=== PATIENT | male | born 1940 | race Caucasian/White ===

== ENCOUNTER 2020-08-30 14:11 | Outpatient (REF) | payer MEDICARE, SELFPAY ==
[2020-08-30 14:15] LABS: Creatinine Urine 89.86 mg/dL; Microalbum/Creatinine Ratio Ur 12.2 ug/mg cr
== END 2020-08-30 14:12 | disposition home or self-care (01) ==
LOC: HO.LNP 14:11
PROVIDERS: Visit Provider Family Medicine
DX: I10 Essential (primary) hypertension (principal)
CPT/HCPCS: 82043

== ENCOUNTER 2020-11-29 13:38 | Outpatient (REF) | payer MEDICARE, SELFPAY ==
[2020-11-29 14:22] LABS: Microalbum/Creatinine Ratio Ur 11.2 ug/mg cr
== END 2020-11-29 13:39 | disposition home or self-care (01) ==
LOC: HO.LNP 13:38
PROVIDERS: Visit Provider Family Medicine
DX: E11.9 Type 2 diabetes mellitus without complications (principal); I10 Essential (primary) hypertension
CPT/HCPCS: 82043

== ENCOUNTER 2021-05-30 12:41 | Outpatient (REF) | payer MEDICARE, SELFPAY ==
[2021-05-30 14:08] LABS: Glucose Urine UA NEG (NEG); Leukocyte Esterase Urine NEG (NEG); Nitrite Urine NEG (NEG); Urine Blood NEG (NEG); Urine Ketones NEG (NEG); Urine Protein NEG (NEG-TRACE)
[2021-05-30 14:14] LABS: Appearance Urine CLEAR; Color Urine YELLOW
[2021-05-30 14:15] LABS: Alanine Aminotransferase 26 U/L (0-40); Albumin Level 4.4 g/dL (3.5-5.0); Alkaline Phosphatase 81 U/L (39-117); Anion Gap 13 (12-20); Aspartate Amino Transferase 22 U/L (5-37); Bilirubin Total 0.7 mg/dL (0.0-1.0); Blood Urea Nitrogen 26 mg/dL (9-16); Calcium 9.7 mg/dL (8.4-10.2); Carbon Dioxide 25 mmol/L (22-29); Chloride 107 mmol/L (96-108); Cholesterol 127 mg/dL; Estimated Glomerular Filt Rate 46; Glucose Fasting 96 mg/dL (60-99); HDL Cholesterol 41 mg/dL; LDL Cholesterol Calculated 61 mg/dl; Potassium 4.8 mmol/L (3.3-5.1); Sodium 140 mmol/L (135-145); Triglycerides 129 mg/dL
== END 2021-05-30 12:42 | disposition home or self-care (01) ==
LOC: HO.WFDLDS 12:41
PROVIDERS: Visit Provider Family Medicine
DX: Z00.00 Encounter for general adult medical examination without abnormal findings (principal); I10 Essential (primary) hypertension
CPT/HCPCS: 36415; 80048; 80053; 80061; 81003; 84443

== ENCOUNTER 2021-09-04 12:20 | Outpatient (REF) | payer MEDICARE, SELFPAY ==
[2021-09-04 14:17] LABS: Anion Gap 12 (12-20); Blood Urea Nitrogen 25 mg/dL (9-16); Calcium 9.4 mg/dL (8.4-10.2); Carbon Dioxide 25 mmol/L (22-29); Chloride 108 mmol/L (96-108); Estimated Glomerular Filt Rate 51; Glucose Random 109 mg/dL (60-115); Potassium 4.4 mmol/L (3.3-5.1); Sodium 141 mmol/L (135-145)
[2021-09-04 14:29] LABS: Estimated Average Glucose 117 mg/dL; Hemoglobin A1c % 5.7 %
== END 2021-09-04 12:21 | disposition home or self-care (01) ==
LOC: HO.WFDLDS 12:20
PROVIDERS: Visit Provider Family Medicine
DX: Z00.00 Encounter for general adult medical examination without abnormal findings (principal); E11.9 Type 2 diabetes mellitus without complications
CPT/HCPCS: 36415; 80048; 83036

== ENCOUNTER 2021-10-05 13:30 | Outpatient (REF) | payer MEDICARE, SELFPAY ==
--- NOTE | ~2021-10-05 | XR_ITS ---
EXAMINATION: X-RAY LUMBAR SPINE X-RAY LEFT HIP CLINICAL INFORMATION: Pain with radiculopathy. COMPARISON: MRA of the abdomen dated from 10/20/2018. TECHNIQUE: 3 views of the lumbar spine and 2 views of the left hip were obtained. FINDINGS: There are 5 nonrib-bearing lumbar-type vertebral bodies with unchanged grade 1 anterolistheses of L4 on L5 and otherwise preserved anatomic alignment. No evidence of acute compression deformities. There are moderate to severe multilevel degenerative changes with disc space narrowing, osteophytes and bilateral facet arthropathy. The degree of disc space narrowing is more pronounced at L2-L3 and the degree of facet arthropathy is more pronounced from L4 through S1. These changes lead to varying degrees of neural foraminal encroachment and central canal narrowing. Evaluation of the left hip demonstrates no acute fractures or malalignment with moderate degenerative osteoarthritis. Multiple indeterminate surgical clips overlie the soft tissues of the left hip. XR/XR lumbar spine 2-3V IMPRESSION: No acute fractures or malalignment. Moderate to severe multilevel lumbar spondylosis which could be further assessed with an MR of lumbar spine if indicated. Moderate degenerative changes of the left hip.
--- NOTE | ~2021-10-05 | XR_ITS ---
EXAMINATION: X-RAY LUMBAR SPINE X-RAY LEFT HIP CLINICAL INFORMATION: Pain with radiculopathy. COMPARISON: MRA of the abdomen dated from 10/20/2018. TECHNIQUE: 3 views of the lumbar spine and 2 views of the left hip were obtained. FINDINGS: There are 5 nonrib-bearing lumbar-type vertebral bodies with unchanged grade 1 anterolistheses of L4 on L5 and otherwise preserved anatomic alignment. No evidence of acute compression deformities. There are moderate to severe multilevel degenerative changes with disc space narrowing, osteophytes and bilateral facet arthropathy. The degree of disc space narrowing is more pronounced at L2-L3 and the degree of facet arthropathy is more pronounced from L4 through S1. These changes lead to varying degrees of neural foraminal encroachment and central canal narrowing. Evaluation of the left hip demonstrates no acute fractures or malalignment with moderate degenerative osteoarthritis. Multiple indeterminate surgical clips overlie the soft tissues of the left hip. XR/XR hip LT min 2V IMPRESSION: No acute fractures or malalignment. Moderate to severe multilevel lumbar spondylosis which could be further assessed with an MR of lumbar spine if indicated. Moderate degenerative changes of the left hip.
== END 2021-10-05 13:31 | disposition home or self-care (01) ==
LOC: HO.HMGCX 13:30
PROVIDERS: PCP Family Medicine; Visit Provider Family Medicine
DX: M54.16 Radiculopathy, lumbar region (principal); M79.605 Pain in left leg
CPT/HCPCS: 72100; 73502

== ENCOUNTER 2022-02-13 15:00 | Outpatient (RCR) | payer MEDICARE, SELFPAY ==
--- NOTE | 2021-11-08 14:00 | MHC.PT.EP ---
[facility] [place] Office [place] Office [place] Office [address] Benny Wyatt [address] [phone] F: [phone] F: [phone] F: [phone] F: [phone] Physical Therapy Plan of Care Date of Evaluation: Date of Surgery: Diagnosis: This is a 80 yo male presenting to skilled PT with a script for radiculopathy, lumbar region, L leg pain Assessment: This is a 80 yo male presenting to skilled PT with a script for radiculopathy, lumbar region, L leg pain. Patient comes to PT after seeing PCP who trialed muscle relaxants and prednisone, neither of which helped. He is now on gabapentin to trial (helping a little), referred to PT and ortho. Symptoms have ongoing for about 5 weeks. Symptoms are located L side buttock and then radiates down the entire leg (anterior, lateral and posterior). Symptoms are described as numbness and achy (radiates to the ankle but not the foot). He has a hard time describing his symptoms and where they are located. The leg feels like it is going to give out and his balance is off but he has not fallen. Assessment reveals pain that ranges up to a 6/10. He demos shuffling gait pattern with decreased balance and increased knee flexion for stability, decreased lumbar and L hip ROM, decreased B hip strength with associated loss of strength in back and core, impaired joint mobility with decreased mobility throughout spine as well as gross functional decline with walking, sitting and standing as well as LB ADLs. Pain improved with prone lying, CHARAN and standing extensions indicating ? nerve involvement. He is a good candidate for skilled PT 2x/wk for 5wks. Frequency and Duration: The patient will be seen 2x/wk for 5wks Short Term Goals: I in HEP and understanding of progression in 1 week Centralize symptoms for at least 2 weeks Return to normal gait pattern in 2 weeks Senior Care Goals: (in 5 wks) Demos functional ROM and strength Improve oswestry by at least 10 points Improve pain at the worst to no more than 2/10 Demo proper lifting techniques without increase in pain or radiating symptoms Treatment Plan: Modalities to reduce pain, spasms and effusion. Manual therapy to restore motion and function. Therapeutic exercise to improve strength and flexibility. Neuromuscular re-education for posture and balance. Therapeutic activities to return to functional activities of daily living. Electronically signed by: Yaima Ambrosio PT Please sign and return to therapist. Thank you for your referral.
--- NOTE | 2022-02-13 15:46 | MHC.PT.DC ---
[facility] [place] Office [place] Office [place] Office [address] Benny Wyatt [address] [phone] F: [phone] F: [phone] F: [phone] F: [phone] Physical Therapy Discharge Report Diagnosis: This is a 80 yo male presenting to skilled PT with a script for radiculopathy, lumbar region, L leg pain Date of Surgery: Date of Evaluation: 11/08/21 Date of Discharge: Treatments to Date: 22 Cancellations to Date: 0 No Shows to Date: 0 Discharge Status: Discharge Summary: 02/13: Patient has had 22 visits of PT, I feel like he has plateued with his progress. He continues to demo shuffling gait, lateral shift and back pain with leg pain. He has improved some and understands how to manage symptoms with HEP. I am referring him back to ortho at this time for continued pain and lack of any more improvements with PT at this time. DC to HEP at this time. Pt has 1 remaining PT visit before DC. Electronically signed by: Please sign and return to therapist. Thank you for your referral.
--- NOTE | 2022-02-13 15:47 | MHC.PT.DC ---
[facility] [place] Office [place] Office [place] Office [address] Benny Wyatt [address] [phone] F: [phone] F: [phone] F: [phone] F: [phone] Physical Therapy Discharge Report Diagnosis: This is a 80 yo male presenting to skilled PT with a script for radiculopathy, lumbar region, L leg pain Date of Surgery: Date of Evaluation: 11/08/21 Date of Discharge: 02/13/22 Treatments to Date: 22 Cancellations to Date: 0 No Shows to Date: 0 Discharge Status: Improved Function Independent with HEP Visit Non-compliance Discharge Summary: 02/13: Patient has had 22 visits of PT, I feel like he has plateaued with his progress. He continues to demo shuffling gait, lateral shift and back pain with leg pain. He has improved some and understands how to manage symptoms with HEP. I am referring him back to ortho at this time for continued pain and lack of any more improvements with PT at this time. DC to HEP at this time. Electronically signed by: Yaima Ambrosio, PT Please sign and return to therapist. Thank you for your referral.
== END 2022-02-13 15:47 | disposition home or self-care (01) ==
LOC: HO.PTCHIC 15:00
PROVIDERS: PCP Family Medicine; Visit Provider Family Medicine
DX: M54.16 Radiculopathy, lumbar region (principal); M79.605 Pain in left leg
CPT/HCPCS: 97110; 97112; 97116; 97140; 97162

== ENCOUNTER → 2022-11-16 13:18 | Outpatient (REF) | payer MEDICARE, SELFPAY ==
--- NOTE | 2022-11-16 13:21 | HM_ITS ---
Conclusion: 1. Patient was monitored for total period of 2 days 2. Baseline was normal sinus rhythm with average heart rate of 72 beats per minute 3. No significant pauses or bradycardia noted 4. Total of 3233 PACs accounting for 1.7% of total beats account for frequent PACs 5. Patient reported 1 event that correlated with sinus rhythm MTDD
== END ==
LOC: HO.CARD 13:18
PROVIDERS: PCP Family Medicine; Visit Provider Family Medicine
DX: R00.2 Palpitations (principal)
CPT/HCPCS: 93225

== ENCOUNTER 2022-12-11 11:58 | Outpatient (REF) | payer MEDICARE, SELFPAY ==
[2022-12-11 13:51] LABS: MANUAL DIFF FLAG NO
[2022-12-11 13:57] LABS: Basophils Absolute Auto 0.1 X10*3/uL (0.0-0.2); Basophils Percent Auto 0.7 % (0-2); Eosinophils Absolute Auto 0.3 X10*3/uL (0.0-0.4); Eosinophils Percent Auto 4.3 % (0-4); Hematocrit 42.3 % (42.0-52.0); Hemoglobin 13.6 g/dl (14.0-18.0); Imm Gran Abs Auto 0.02 X10*3/uL (0.00-0.03); Imm Gran Pct Auto 0.3 % (0.0-0.4); Lymphocytes Absolute Auto 1.9 X10*3/uL (1.2-4.9); Lymphocytes Percent Auto 24.5 % (20-40); Mean Corpuscular HGB Conc 32.2 g/dl (31.0-36.0); Mean Corpuscular Hemoglobin 30.4 pg (27.0-33.0); Mean Corpuscular Volume 94.4 fL (80.0-98.0); Mean Platelet Volume 11.3 fL (9.4-12.4); Monocytes Absolute Auto 0.8 X10*3/uL (0.1-1.2); Monocytes Percent Auto 9.8 % (2-11); Neutrophils Absolute Auto 4.6 x10*3/uL (2.0-8.3); Neutrophils Percent Auto 60.4 % (45-73); Platelet Count 229 X10*3/uL (160-400); Red Blood Count 4.48 X10*6/uL (4.60-5.80); White Blood Count 7.6 X10*3/uL (4.8-10.8)
[2022-12-11 14:07] LABS: Appearance Urine Clear; Color Urine Yellow; Glucose Urine UA Negative (Negative); Leukocyte Esterase Urine Negative (Negative); Nitrite Urine Negative (Negative); Urine Blood Negative (Negative); Urine Ketones Negative (Negative); Urine Protein Negative (Neg-Trace)
[2022-12-11 15:22] LABS: Creatinine Urine 70.12 mg/dL; Microalbum/Creatinine Ratio Ur 17.1 ug/mg cr
[2022-12-11 15:52] LABS: Alanine Aminotransferase 18 U/L (0-40); Albumin Level 4.3 g/dL (3.5-5.0); Alkaline Phosphatase 99 U/L (39-117); Anion Gap 14 (12-20); Aspartate Amino Transferase 18 U/L (5-37); Bilirubin Total 0.8 mg/dL (0.0-1.0); Blood Urea Nitrogen 32 mg/dL (9-16); Calcium 9.2 mg/dL (8.4-10.2); Carbon Dioxide 26 mmol/L (22-29); Chloride 105 mmol/L (96-108); Estimated Glomerular Filt Rate 38; Glucose Fasting 100 mg/dL (60-99); Potassium 4.6 mmol/L (3.3-5.1); Sodium 140 mmol/L (135-145); Total Protein 6.6 g/dL (6.5-8.0)
[2022-12-11 15:57] LABS: TSH reflex Free T4 0.98 uIU/mL (0.32-4.0)
== END 2022-12-11 11:59 | disposition home or self-care (01) ==
LOC: HO.WFDLDS 11:58
PROVIDERS: Visit Provider Family Medicine
DX: Z00.00 Encounter for general adult medical examination without abnormal findings (principal); I10 Essential (primary) hypertension
CPT/HCPCS: 36415; 80053; 81003; 82043; 84443; 85025

== ENCOUNTER → 2023-01-30 12:45 | Outpatient (BNVA) | payer MEDICARE, SELFPAY | PROVIDERS: PCP Family Medicine; Referring Provider Family Medicine; Visit Provider Internal Medicine | DX: I49.8 Other specified cardiac arrhythmias (principal); I73.9 Peripheral vascular disease, unspecified | CPT/HCPCS: 99202 ==

== ENCOUNTER 2023-02-04 13:05 | Outpatient (REF) | payer MEDICARE, SELFPAY ==
--- NOTE | ~2023-02-04 | XR_ITS ---
EXAMINATION: XR CHEST CLINICAL INFORMATION: Cough. COMPARISON: 06/15/2018 chest radiograph. TECHNIQUE: 2 views of the chest were obtained. FINDINGS: No significant abnormality is noted involving the heart, lungs, mediastinum, bony thorax or soft tissues. XR/XR chest 2V IMPRESSION: No acute cardiopulmonary process.
== END 2023-02-04 13:06 | disposition home or self-care (01) ==
LOC: HO.XRAY 13:05
PROVIDERS: PCP Family Medicine; Visit Provider Family Medicine
DX: R05.9 Cough, unspecified (principal)
CPT/HCPCS: 71046

== ENCOUNTER → 2023-02-18 08:38 | Outpatient (REF) | payer MEDICARE, SELFPAY ==
--- NOTE | ~2023-02-18 | NM_ITS ---
Lexiscan Myocardial perfusion study Indication: Vascular disease, assess for ischemia Technique: The patient was brought in for a Lexiscan perfusion study on 02/18/2023 and was injected 0.4 mg of Lexiscan intravenously. Within a minute of this injection 25 mCi of sestamibi was given intravenously. Images were obtained using the SPECT gamma camera interlaced with the gating device. Images were obtained in supine position. Resting perfusion study was performed on 02/19/2023. Patient was administered 25 mCi of sestamibi intravenously at rest. Images were then obtained in supine position. Images were processed with the software and compared side to side in short axis, horizontal long axis and vertical long axis views. Total DLP 120mGy-cm. Findings: Raw acquisition reviewed. Arms by the patient's side. The stress perfusion study showed diminished tracer uptake along the inferior wall from basal to mid portions. There is improvement with CT attenuation correction suggestive of diaphragmatic attenuation artifact. The gated study shows normal LV systolic function with calculated LVEF of 68%. LV cavity is normal in size. The gated study shows normal wall thickening and contraction of segments. Resting study shows no significant perfusion abnormality. Gating at rest reveals normal wall motion with ejection fraction at 74%. The findings are consistent with no clear reversible or fixed perfusion abnormality. NC/NC cardiolite stress test Impression: 1. Myocardial perfusion imaging study shows normal myocardial perfusion. 2. Gated LVEF is 69% during stress and 74% during rest. 3. Transient ischemic dilatation not present. EKG component of the test reported separately.
--- NOTE | 2023-02-18 08:41 | CA_ITS ---
Transthoracic Echocardiogram Patient (Last, First, Middle): Alexi Oconnell P Gender: Male Date of : 1940 Age: 82 Procedure Date: 02/18/2023 Procedure Type: Transthoracic Echocardiogram Location: OP Height: 180.34 cm Weight: 79.38 kg BSA: 1.99 m2 Heart Rate: 68 bpm BP: 120 / 60 mmHg Glove Wrapper: KISHAN Referring MD: Anderson Bhandari MD Symptoms: I25.10 - Atherosclerotic heart disease of [place] coronary artery without... Study Quality: Adequate ECG Rhythm: Atrial Fibrillation Conclusions: - The left ventricular systolic function is normal. The calculated ejection fraction is 68% by biplane method. - No obvious valvular pathology seen on this study. Findings Left Ventricle Normal left ventricular cavity size. The left ventricular systolic function is normal. The calculated ejection fraction is 68% by biplane method. There is no evidence of regional wall motion abnormalities. Diastolic function is indeterminate on the basis of available data. There is mild septal and mild basal asymmetric hypertrophy. LV peak GLS -17.7%. Right Ventricle Normal right ventricular cavity size and systolic function. Atria Both atria are normal in size. Aortic Valve There is a normal trileaflet aortic valve. There is no aortic valve stenosis. There is trace (trivial) aortic valve regurgitation. Mitral Valve There is mild mitral annular calcification. There is no mitral valve regurgitation. There is no mitral valve stenosis. Pulmonic Valve The pulmonic valve is likely normal. There is trace pulmonic valve regurgitation. Tricuspid Valve Normal tricuspid valve structure. There is mild tricuspid valve regurgitation. There is no evidence of pulmonary hypertension. Great Vessels The asc aorta is normal in size. Venous The inferior vena cava is normal in size and collapses greater than 50% with inspiration. Pericardium/Pleural There is no evidence of pericardial effusion. Prior Study Comparison No prior study available for comparison. Recommendations, Care & Conclusions No obvious valvular pathology seen on this study. Measurements 2D Linear Measurements IVSd: 0.92 0.6-0.9/0.6-1.0 cm LVIDd: 4.31 3.9-5.3/4.2-5.9 cm LVIDd Index: 2.17 2.4-3.2/2.2-3.1 cm/m2 LVIDs: 2.20 2.0-3.6 cm LVPWd: 0.81 0.7-1.1 cm LA Diam: 3.30 2.7-3.8/3.0-4.0 cm LAIDs Index: 1.66 1.5-2.3 cm/m2 LV Mass: 146.24 67-162/88-224 g LV Mass Index: 73.49 43-95/49-115 g/m2 LVOT Diam: 2.10 3.0+(-)1.3 cm 2D Systolic Function EF 4C: 68.30 >55% EF 2C: 65.70 >55% EF BiP: 68.00 >55% Mitral Valve MV Pk E: 0.79 MV PK A: 1.11 MV Decel Time: 327.00 E/A: 0.70 E'Lateral: 7.83 E'Medial: 6.42 E/E' Med: 12.40 E/E' Lat: 10.10 PHT: 96.00 MVA PHT: 2.29 Decel Fountain: 2.43 Aortic Valve AoV Pk Amador: 1.19 AoV Pk Grad: 6.00 LVOT LVOT Pk Amador: 1.00 LVOT Mn Amador: 0.68 LVOT VTI: 0.22 LVOT Pk Grad: 4.00 LVOT Mn Grad: 2.00 LVOT Diam: 2.10 LVOT Area: 3.46 Diastolic Function MV Pk E: 0.79 MV Pk A: 1.11 E/A: 0.70 E'Medial: 6.42 E/E' Med: 12.40 E' Laterial: 7.83 E/E' Lat: 10.10 Right Ventricle TAPSE (mm): 19.90 TVS' Amador: 13.40 Tricuspid Valve TR Pk Amador: 2.03 TR Pk Grad: 16.00 RA Press: 3.00 RVSP: 19.00 Great Vessels Aorta Sinus of Valsalva: 3.60 2.0-3.5 cm Ao Asc: 3.80 2.1-3.4 cm Pulmonary Valve PV Pk Amador: 1.07 Peak PV Grad: 5.00 Updated in Other Vendor System with Status of Final Anderson Bhandari MD electronically signed on 02/18/2023 12:04:59 PM with status of Final
--- NOTE | 2023-02-18 08:41 | CA_ITS ---
Acquisition Time: 2023-02-18 10:10:57 Total Exercise Time: 00:00:54 Test Indications: I73.9 - Peripheral vascular dis Medications: Protocol: MARRY Max HR: 115 BPM 83% of Pred: 137 BPM Max BP: 130/064 mmHG Max Work Load: 2.5 METS Exercise stress test with exercise 54 sec of Marry protocol and unable to walk safely on treadmill. Treadmill stopped and pt assisted to sitting position. Testing changed to a pharmacological stress test with Lexiscan injection, while sitting and kicking his legs, with mild sob, no chest discomfort, with frequent isolated PACs, with normotensive response to injection, with nondiagnostic EKG for ischemia. In recovery he reported some lightheadedness that was treated with Aminophylline 75mg IVP to reverse Lexiscan. Nuclear images pending. Test reviewed with Dr Escobar. Referred By: Anderson Bhandari Overread By: RIVAS WOOD
== END ==
LOC: HO.CARD 08:38
PROVIDERS: PCP Family Medicine; Visit Provider Internal Medicine
DX: I25.10 Atherosclerotic heart disease of native coronary artery without angina pectoris (principal); I49.8 Other specified cardiac arrhythmias; I73.9 Peripheral vascular disease, unspecified
CPT/HCPCS: 78452; 93017; 93306; 93356; A9500; J0280; J2785

== ENCOUNTER 2023-06-12 11:18 | Outpatient (AMB) | payer MEDICARE, SELFPAY ==
[2023-06-12 11:24] VITALS: BP 110/58; PULSE 62; O2SAT 96
--- NOTE | 2023-06-12 11:24 | A.OFFPC_ITS ---
Vital Signs 06/12/23 11:24 Height 5 ft 10.5 in BP 110/58 L Blood Pressure Location Rt brachial Position Sitting Pulse 62 Pulse Source Pulse Oximeter Pulse Oximetry (%) 96 Oxygen Delivery Method Room Air Intake Visit Reasons: Follow-up hypertension and renal failure Intake Note: Patient is here to follow up on hypertension and renal failure. Allergies lisinopril [LISINOPRIL] Allergy (Intermediate, Verified 06/12/23 11:34) ANGIOEDEMA Iodinated Contrast Media [IV CONTRAST] Allergy (Unknown, Verified 06/12/23 11:34) SWELLING orange juice [ORANGE JUICE] Allergy (Unknown, Verified 06/12/23 11:34) BPH/KIDNEY PROBLEM IVP Dye Allergy (Unknown, Uncoded 06/12/23 11:34) Rash Hives Tobacco use date assessed: 06/12/23 Fall risk assessment: No Falls in past year Last assessed Fall Risk: 06/12/23 Dental Screening Dental Screen Date: 06/12/23 Did you have a dental visit in the last 12 months?: No Did you have a dental problem in the last 6 months where you did not have access to dental care?: No Was dental information given to patient?: Patient has dentist HPI Follow-up hypertension and renal failure HPI Details 82 y/o male presents to f/u hypertension and renal failure. Blood pressure today 110/58. He is on metoprolol 150mg and amlodipine 10mg daily. Also on losartan 100mg daily. No recent labs to review for his CRF. Had seen Nephrology 06/03/23. HPI Comments History of Present Illness Details Documentation assistance for Hernando Mosqueda MD, was provided by Amilcar Yan, Speech Coach on 06/12/2023 12:17 PM ANNIE. I, Dr. Mosqueda, have read, observed, and verified documentation. [facility] Medical History Diet-controlled diabetes mellitus Essential hypertension HTN (hypertension) Peripheral vascular disease Surgical History History of bladder surgery History of surgery History of tonsillectomy Family History Father HTN (hypertension) Lung cancer Mother HTN (hypertension) Sister Mental health disorder Sister Anxiety Son No problems noted. Son No problems noted. Daughter No problems noted. Daughter No problems noted. Social History Housing: Condominium Patient Tobacco Use Status: Former Tobacco user Years Smoked: 25 years e-Cigarette/Vaping Use: Never Used Second Hand Smoke Exposure: No service: Yes Current occupational status: retired Current occupational exposures/hazards: No Hearing needs: Yes Questionnaire Thrive Questionnaire Date Thrive assessed: 09/04/21 MAGNUS-7 AMB Questionnaire MAGNUS-7 Date MAGNUS - 7 assessed: 10/16/21 Source: Developed by Drs. Cameron Pimentel, Giovana Hendrix, Tim Wong and colleagues, with an educational monika from [employer]. Review of Systems Const Denies chills, Denies fatigue, Denies fever(s), Denies headache(s) and Denies weakness ENT Denies dizziness and Denies headache(s) Card Denies chest pain, Denies lightheadedness, Denies dyspnea and Denies other (Palpitations) Resp Denies cough, Denies dyspnea, Denies wheezing and Denies other ( shortness of breath) Musc Denies numbness and Denies tingling Neuro Denies dizziness, Denies headache(s), Denies numbness, Denies tingling, Denies paresthesias and Denies weakness Psych Denies anxiety and Denies depression Endo Denies fatigue Aller/Immun Denies wheezing Physical exam (Primary Care) Vital Signs: Last Vital Signs Pulse 62 06/12/23 11:24 BP 110/58 L 06/12/23 11:24 Pulse Ox 96 06/12/23 11:24 Oxygen Delivery Method Room Air 06/12/23 11:24 Tobacco/Smoking Status: Tobacco use Status Tobacco use date assessed 06/12/23 06/12/23 11:35 Patient Tobacco Use Status Former Tobacco user 06/12/23 11:28 e-Cigarette/Vaping Use Never Used 06/12/23 11:28 Thrive Assessment: Date of Thrive Assessment Date Thrive assessed 09/04/21 06/12/23 11:28 Const General: no acute distress and well developed Nutritional Appearance: well nourished Orientation/consciousness: patient oriented x3 HENMT Head: Yes normocephalic and Yes atraumatic Eyes General: appearance normal, both eyes and all related structures Pupils: Equal, round and reactive pupils present EOM: EOMs intact bilaterally Resp Effort & Inspection: normal respiratory effort Auscultation: clear to auscultation bilaterally Cardio Rate: regular rate Rhythm: regular rhythm Heart sounds: S1 normal heart sound present, S2 normal heart sound present, no gallops, no murmurs and no rubs Bruits: carotid bruit Neuro General: patient oriented x3 and gait normal Cranial nerves: Yes Equal, round and reactive pupils present Psych Affect: normal affect Assessment and Plan Assessment & Plan (1) Essential hypertension: Code(s): I10 - Essential (primary) hypertension Plan: Blood pressure very well controlled. Creatinine level has risen further however Will try lowering his losartan to 50 mg daily (2) CRF (chronic renal failure): Code(s): N18.9 - Chronic kidney disease, unspecified Plan: As above, will decrease losartan He will watch his blood pressures and we can follow-up on renal function at his next visit (3) Carotid bruit: Code(s): R09.89 - Other specified symptoms and signs involving the circulatory and respiratory systems Plan: Followed by [facility] vascular for carotid artery stenosis Stable today Coding Level of Care Code Est Pt Level 4 (41758) Diagnoses Essential hypertension I10 CRF (chronic renal failure) N18.9 Carotid bruit R09.89
== END 2023-06-12 12:50 | disposition home or self-care (01) ==
PROVIDERS: PCP Family Medicine; Visit Provider Family Medicine
DX: I12.9 Hypertensive chronic kidney disease with stage 1 through stage 4 chronic kidney disease, or unspecified chronic kidney disease (principal); N18.9 Chronic kidney disease, unspecified; R09.89 Other specified symptoms and signs involving the circulatory and respiratory systems
CPT/HCPCS: 99214

== ENCOUNTER 2023-06-12 11:18 | Outpatient (REF) | payer MEDICARE, SELFPAY ==
[2023-06-12 14:15] LABS: MANUAL DIFF FLAG NO
[2023-06-12 14:21] LABS: Basophils Percent Auto 0.4 % (0-2); Eosinophils Absolute Auto 0.2 X10*3/uL (0.0-0.4); Eosinophils Percent Auto 2.5 % (0-4); Hematocrit 40.4 % (42.0-52.0); Imm Gran Abs Auto 0.01 X10*3/uL (0.00-0.03); Imm Gran Pct Auto 0.1 % (0.0-0.4); Lymphocytes Absolute Auto 1.7 X10*3/uL (1.2-4.9); Mean Corpuscular HGB Conc 32.2 g/dl (31.0-36.0); Mean Corpuscular Hemoglobin 30.4 pg (27.0-33.0); Mean Corpuscular Volume 94.4 fL (80.0-98.0); Mean Platelet Volume 11.8 fL (9.4-12.4); Monocytes Absolute Auto 0.7 X10*3/uL (0.1-1.2); Neutrophils Absolute Auto 5.3 x10*3/uL (2.0-8.3); Platelet Count 211 X10*3/uL (160-400); Red Blood Count 4.28 X10*6/uL (4.60-5.80); Red Cell Distribution Width 13.5 % (11.0-16.0); White Blood Count 7.9 X10*3/uL (4.8-10.8)
[2023-06-12 14:34] LABS: Albumin Level 4.1 g/dL (3.5-5.0); Anion Gap 14 (12-20); Blood Urea Nitrogen 27 mg/dL (9-16); Calcium 9.3 mg/dL (8.4-10.2); Carbon Dioxide 24 mmol/L (22-29); Chloride 107 mmol/L (96-108); Estimated Glomerular Filt Rate 38; Magnesium 1.8 mg/dL (1.6-2.6); Phosphorus 3.3 mg/dL (2.7-4.5); Potassium 4.4 mmol/L (3.3-5.1); Sodium 141 mmol/L (135-145)
[2023-06-14 15:54] LABS: Calcium (PTHI) 8.9 mg/dL (8.6-10.3); PTHI 129 pg/mL (16-77)
[2023-06-17 00:54] LABS: VITAMIN D (1,25 OH) D3 34 pg/mL; Vit D (1,25-Dihydroxy) Total 34 pg/mL (18-72); Vitamin D (1,25 OH) D2 <8 pg/mL
== END 2023-06-12 11:19 | disposition home or self-care (01) ==
LOC: HO.WFDLDS 11:18
PROVIDERS: Visit Provider Internal Medicine Nephrology
DX: I12.9 Hypertensive chronic kidney disease with stage 1 through stage 4 chronic kidney disease, or unspecified chronic kidney disease (principal); E11.22 Type 2 diabetes mellitus with diabetic chronic kidney disease; N18.32 Chronic kidney disease, stage 3b
CPT/HCPCS: 36415; 80051; 82040; 82310; 82565; 82652; 83735; 83970; 84100; 84520; 85025

== ENCOUNTER 2023-08-22 11:10 | Outpatient (AMB) | payer MEDICARE, SELFPAY ==
[2023-08-22 11:15] VITALS: BP 118/62; PULSE 64; O2SAT 96; BMI 25.0
--- NOTE | 2023-08-22 11:15 | MHC.PC.OV ---
Vital Signs 08/22/23 11:15 Height 5 ft 10.5 in Weight 177 lb BMI 25.0 BP 118/62 Blood Pressure Location Rt brachial Position Sitting Pulse 64 Pulse Source Pulse Oximeter Pulse Oximetry (%) 96 Oxygen Delivery Method Room Air Intake Visit Reasons: f/u hypertension and CRF Intake Note: Patient is here to follow up on hypertension and CRF. Allergies lisinopril [LISINOPRIL] Allergy (Intermediate, Verified 08/22/23 11:24) ANGIOEDEMA Iodinated Contrast Media [IV CONTRAST] Allergy (Unknown, Verified 08/22/23 11:24) SWELLING orange juice [ORANGE JUICE] Allergy (Unknown, Verified 08/22/23 11:24) BPH/KIDNEY PROBLEM IVP Dye Allergy (Unknown, Uncoded 08/22/23 11:24) Rash Hives Tobacco use date assessed: 08/22/23 Fall risk assessment: 1 Fall in past year Last assessed Fall Risk: 08/22/23 Dental Screening Dental Screen Date: 08/22/23 Did you have a dental visit in the last 12 months?: No Did you have a dental problem in the last 6 months where you did not have access to dental care?: No Was dental information given to patient?: Patient declined HPI f/u hypertension and CRF HPI Details 82 y/o male presents to f/u hypertension and CRF. Had decreased losartan due to rising creatinine levels. Blood pressure today 118/62. He is on losartan 100mg and metoprolol 150mg daily. Also on amlodipine Labs were drawn 06/12/23. Reviewed labs with pt. Creatinine level 1.71 and had barely changed from prior. [facility] Medical History Peripheral vascular disease Diet-controlled diabetes mellitus Essential hypertension HTN (hypertension) Surgical History History of surgery History of tonsillectomy History of bladder surgery Family History Father HTN (hypertension) Lung cancer Mother HTN (hypertension) Sister Mental health disorder Sister Anxiety Son No problems noted. Son No problems noted. Daughter No problems noted. Daughter No problems noted. Social History Housing: Condominium Patient Tobacco Use Status: Former Tobacco user Years Smoked: 25 years e-Cigarette/Vaping Use: Never Used Second Hand Smoke Exposure: No service: Yes Current occupational status: retired Current occupational exposures/hazards: No Hearing needs: Yes Questionnaire Thrive Questionnaire Date Thrive assessed: 09/04/21 MAGNUS-7 AMB Questionnaire MAGNUS-7 Date MAGNUS - 7 assessed: 10/16/21 Source: Developed by Drs. Cameron Pimentel, Giovana Hendrix, Tim Wong and colleagues, with an educational monika from [employer]. Review of Systems Const Denies chills, Denies fatigue, Denies fever(s), Denies headache(s) and Denies weakness ENT Denies dizziness and Denies headache(s) Card Denies chest pain, Denies lightheadedness, Denies dyspnea and Denies other (Palpitations) Resp Denies cough, Denies dyspnea, Denies wheezing and Denies other ( shortness of breath) Musc Denies numbness and Denies tingling Neuro Denies dizziness, Denies headache(s), Denies numbness, Denies tingling, Denies paresthesias and Denies weakness Psych Denies anxiety and Denies depression Endo Denies fatigue Aller/Immun Denies wheezing Physical exam (Primary Care) Vital Signs: Last Vital Signs Pulse 64 08/22/23 11:15 BP 118/62 08/22/23 11:15 Pulse Ox 96 08/22/23 11:15 Oxygen Delivery Method Room Air 08/22/23 11:15 BMI result Body Mass Index 25.0 Tobacco/Smoking Status: Tobacco use Status Tobacco use date assessed 08/22/23 08/22/23 11:27 Patient Tobacco Use Status Former Tobacco user 08/22/23 11:16 e-Cigarette/Vaping Use Never Used 08/22/23 11:16 Thrive Assessment: Date of Thrive Assessment Date Thrive assessed 09/04/21 08/22/23 11:16 Const General: no acute distress and well developed Nutritional Appearance: well nourished Orientation/consciousness: patient oriented x3 HENMT Head: Yes normocephalic and Yes atraumatic Eyes General: appearance normal, both eyes and all related structures Pupils: Equal, round and reactive pupils present EOM: EOMs intact bilaterally Resp Effort & Inspection: normal respiratory effort Auscultation: clear to auscultation bilaterally Cardio Rate: regular rate Rhythm: regular rhythm Heart sounds: S1 normal heart sound present, S2 normal heart sound present, no gallops, no murmurs and no rubs Neuro General: patient oriented x3 and gait normal Cranial nerves: Yes Equal, round and reactive pupils present Psych Affect: normal affect Assessment and Plan Assessment & Plan (1) Essential hypertension: Code(s): I10 - Essential (primary) hypertension Plan: Blood?pressure?shows?good?control.??Goal?is?less?than?140/90 Continue?current?medication?regimen (2) CRF (chronic renal failure): Code(s): N18.9 - Chronic kidney disease, unspecified Plan: Creatinine?level?had?been?rising?and?I?decreased?his?losartan He?will?repeat?his?labs?today Follow-up?with??Peterson?as?recommended Orders: Orders Basic Metabolic Panel Today N18.9 - Chronic kidney disease, unspecified, Z00.00 - Encounter for general adult medical examination without abnormal findings Coding Level of Care Code Est Pt Level 3 (55879) Diagnoses Essential hypertension I10 CRF (chronic renal failure) N18.9
== END 2023-08-22 13:06 | disposition home or self-care (01) ==
PROVIDERS: PCP Family Medicine; Visit Provider Family Medicine
DX: I12.9 Hypertensive chronic kidney disease with stage 1 through stage 4 chronic kidney disease, or unspecified chronic kidney disease (principal); N18.9 Chronic kidney disease, unspecified
CPT/HCPCS: 99213

== ENCOUNTER 2023-08-22 12:12 | Outpatient (REF) | payer MEDICARE, SELFPAY ==
[2023-08-22 14:41] LABS: Anion Gap 12 (12-20); Blood Urea Nitrogen 23 mg/dL (9-16); Calcium 9.2 mg/dL (8.4-10.2); Carbon Dioxide 24 mmol/L (22-29); Chloride 108 mmol/L (96-108); Estimated Glomerular Filt Rate 41; Glucose Random 115 mg/dL (60-115); Potassium 4.5 mmol/L (3.3-5.1); Sodium 139 mmol/L (135-145)
== END 2023-08-22 12:13 | disposition home or self-care (01) ==
LOC: HO.WFDLDS 12:12
PROVIDERS: Visit Provider Family Medicine
DX: Z00.00 Encounter for general adult medical examination without abnormal findings (principal); N18.9 Chronic kidney disease, unspecified
CPT/HCPCS: 36415; 80048

== ENCOUNTER 2023-12-12 11:09 | Outpatient (AMB) | payer MEDICARE, SELFPAY ==
[2023-12-12 11:34] VITALS: BP 100/58; PULSE 65; O2SAT 95; BMI 25.5
--- NOTE | 2023-12-12 11:34 | A.OFFPC_ITS ---
Vital Signs 03 11:34 Height 5 ft 10.5 in Weight 180 lb BMI 25.5 BP 100/58 L Blood Pressure Location Lt brachial Pulse 65 Pulse Source Pulse Oximeter Pulse Oximetry (%) 95 Oxygen Delivery Method Room Air Intake Visit Reasons: Extended exam with f/u labs and health maintenance Allergies lisinopril [LISINOPRIL] Allergy (Intermediate, Verified 08/22/23 11:24) ANGIOEDEMA Iodinated Contrast Media [IV CONTRAST] Allergy (Unknown, Verified 08/22/23 11:24) SWELLING orange juice [ORANGE JUICE] Allergy (Unknown, Verified 08/22/23 11:24) BPH/KIDNEY PROBLEM IVP Dye Allergy (Unknown, Uncoded 08/22/23 11:24) Rash Hives Tobacco use date assessed: 08/22/23 HPI Extended exam with f/u labs and health maintenance HPI Details 82 y/o male presents for an extended exa m with f/u labs and health maintenance. Labs were drawn 08/22/23. Reviewed labs with pt. CRF - creatinine level improved from 1.71 to 1.63 mg/dL. No recent lipid panel. Blood pressure today 100/58. He is on amlodipine 10mg, losartan 100mg, metoprollol 150mg daily. [facility] Medical History Peripheral vascular disease Diet-controlled diabetes mellitus Essential hypertension HTN (hypertension) Surgical History History of surgery History of tonsillectomy History of bladder surgery Family History Father HTN (hypertension) Lung cancer Mother HTN (hypertension) Sister Mental health disorder Sister Anxiety Son No problems noted. Son No problems noted. Daughter No problems noted. Daughter No problems noted. Social History Housing: Condominium Patient Tobacco Use Status: Former Tobacco user Years Smoked: 25 years e-Cigarette/Vaping Use: Never Used Second Hand Smoke Exposure: No service: Yes Current occupational status: retired Current occupational exposures/hazards: No Hearing needs: Yes Questionnaire Thrive Questionnaire Date Thrive assessed: 09/04/21 MAGNUS-7 AMB Questionnaire MAGNUS-7 Date MAGNUS - 7 assessed: 10/16/21 Source: Developed by Drs. Cameron Pimentel, Giovana Hendrix, Tim Wong and colleagues, with an educational monika from [employer] Review of Systems Const Denies chills, Denies fatigue, Denies fever(s), Denies headache(s) and Denies weakness Eyes Denies change in vision ENT Denies dizziness, Denies headache(s), Denies hearing loss, Denies nasal congestion, Denies sinus pain, Denies sinus pressure and Denies sore throat Card Denies chest pain, Denies lightheadedness, Denies dyspnea and Denies other (palpitations) Resp Denies cough, Denies dyspnea and Denies wheezing GI Denies abdominal pain, Denies melena, Denies hematochezia, Denies change in bowel habits, Denies dyspepsia and Denies nausea Denies hematuria and Denies dysuria Musc Denies abnormal gait, Denies myalgias, Denies arthralgias, Denies numbness and Denies tingling Skin/Breast Denies rash, Denies unusual bruising and Denies wounds Neuro Denies abnormal gait, Denies dizziness, Denies headache(s), Denies memory loss, Denies numbness, Denies Sensory deficit (Neuro), Denies tingling and Denies weakness Psych Denies anxiety, Denies depression and Denies memory loss Endo Denies cold intolerance, Denies fatigue, Denies heat intolerance, Denies polydipsia and Denies polyuria Valdemar/Lymph Denies easy bleeding and Denies easy bruising Aller/Immun Denies wheezing Physical exam (Primary Care) Vital Signs: Last Vital Signs Pulse 65 12/12/23 11:34 BP 100/58 L 12/12/23 11:34 Pulse Ox 95 12/12/23 11:34 Oxygen Delivery Method Room Air 12/12/23 11:34 BMI result Body Mass Index 25.5 Tobacco/Smoking Status: Tobacco use Status Tobacco use date assessed 08/22/23 12/12/23 11:38 Patient Tobacco Use Status Former Tobacco user 12/12/23 11:38 e-Cigarette/Vaping Use Never Used 12/12/23 11:38 Thrive Assessment: Date of Thrive Assessment Date Thrive assessed 09/04/21 12/12/23 11:38 Const General: no acute distress, well developed, alert and awake Nutritional Appearance: well nourished Orientation/consciousness: patient oriented x3 [facility] Head: Yes normocephalic and Yes atraumatic Ears: hearing grossly normal bilaterally and TM's normal bilaterally General nose exam: Normal external nose present and Normal nares present Mouth: Normal oral and palatal mucosa present and moist mucous membranes Teeth and gingiva: dentition normal Throat: Yes posterior oropharynx normal Eyes General: appearance normal, both eyes and all related structures Pupils: Equal, round and reactive pupils present and Pupil accommodation reflex normal EOM: EOMs intact bilaterally Neck Neck: Yes normal visual inspection, Yes no lymphadenopathy and Yes trachea midline Thyroid: Thyroid normal Carotids: no bruits Lymphatic: no lymphadenopathy noted Chest Chest palpation & inspection: normal inspection of the chest Resp Effort & Inspection: normal respiratory effort Auscultation: clear to auscultation bilaterally Cardio Rate: regular rate Rhythm: regular rhythm Heart sounds: S1 normal heart sound present, S2 normal heart sound present, no gallops, no murmurs and no rubs Bruits: no abdominal aortic bruits and carotid bruit on the left GI Palpation (GI): No Abdominal aortic bruit present, Soft to palpation, nontender, No hepatosplenomegaly present and No Rebound tenderness present Auscultation: normal bowel sounds General: Yes no CVA tenderness Back/Spine/Pelvis Back: no CVA tenderness Cervical Spine: cervical ROM normal and No Cervical spine tenderness Thoracic/Lumbar Spine: thoraco-lumbar ROM normal, No pain with thoraco-lumbar ROM, No thoracic spinal tenderness and No lumbar spinal tenderness Skin Lesions: no lesions Rashes: no rashes Trauma: no lacerations or abrasions Wounds: no wounds Nails: normal Neuro General: patient oriented x3 Cranial nerves: Yes Equal, round and reactive pupils present Cognition (Neuro): normal cognition Gait exam (Neuro): Normal gait present Motor exam (neuro): 5/5 motor strength present throughout Sensory Exam: No Sensory deficit (Neuro) Deep tendon reflexes (DTR's): Right patellar reflex intensity grade: 2+ and Left patellar reflex intensity grade: 2+ Extrem General: Yes normal to inspection and No edema Psych Appearance: grossly normal Affect: normal affect Attitude: cooperative Thought process: Normal thought process present Assessment and Plan Assessment & Plan (1) CRF (chronic renal failure): Code(s): N18.9 - Chronic kidney disease, unspecified Plan: Renal?function?has?improved?with?discontinuation?of?hydrochlorothiazide Will?also?decrease?his?losartan?at?this?visit (2) Essential hypertension: Code(s): I10 - Essential (primary) hypertension Plan: Blood?pressure?is?a?little?low Will?decrease?losartan (3) Diet-controlled diabetes mellitus: Code(s): E11.9 - Type 2 diabetes mellitus without complications Plan: Blood?sugars?have?been?fairly?well?controlled. Continue?diet?control Will?check?A1c?with?next?lab?draw (4) Cognitive decline: Code(s): R41.89 - Other symptoms and signs involving cognitive functions and awareness Plan: Mild?cognitive?decline?but?patient?also?notices?some?unsteadiness?of?gait Unclear?if?these?are?related Also,?patient?has?left?carotid?bruit?and?vascular?note?mentions?he?is?due?for?re peat?carotid?duplex - referred?back?to?vascular Unclear?if?he?may?have?some?cerebral?microvascular disease Will?continue?to?follow May?need?referral?to?neurology (5) Lower extremity weakness: Code(s): R29.898 - Other symptoms and signs involving the musculoskeletal system Plan: Lower?extremity?weakness?and?mildly?unsteady?gait Will?refer?to?physical?therapy If?not?improving,?will?consider?referral?to?neurology. (6) Unsteady gait: Code(s): R26.81 - Unsteadiness on feet Plan: As?above (7) Carotid bruit: Code(s): R09.89 - Other specified symptoms and signs involving the circulatory and respiratory systems Plan: Left?carotid?bruit. ?As?above,?referred?back?to?his?vascular?surgeon (8) Peripheral vascular disease: Code(s): I73.9 - Peripheral vascular disease, unspecified Plan: As?above (9) Adult general medical exam: Code(s): Z00.00 - Encounter for general adult medical examination without abnormal findings Plan: 82-year-old?male?presents?for?an?extended?exam Stable Orders: Referrals Cologuard Test Z12.11 - Encounter for screening for malignant neoplasm of colon, Z12.12 - Encounter for screening for malignant neoplasm of rectum Vascular Surgery Referral I73.9 - Peripheral vascular disease, unspecified, R09.89 - Other specified symptoms and signs involving the circulatory and respiratory systems Medications: New losartan 25 mg PO DAILY 90 days 90 tabs 2RF Coding Level of Care Code Est Pt Level 4 (81107) Diagnoses CRF (chronic renal failure) N18.9 Essential hypertension I10 Diet-controlled diabetes mellitus E11.9 Cognitive decline R41.89 Lower extremity weakness R29.898 Unsteady gait R26.81 Carotid bruit R09.89 Peripheral vascular disease I73.9 Adult general medical exam Z00.00
== END 2023-12-12 13:04 | disposition home or self-care (01) ==
PROVIDERS: PCP Family Medicine; Visit Provider Family Medicine
DX: I12.9 Hypertensive chronic kidney disease with stage 1 through stage 4 chronic kidney disease, or unspecified chronic kidney disease (principal); E11.22 Type 2 diabetes mellitus with diabetic chronic kidney disease; I73.9 Peripheral vascular disease, unspecified; N18.9 Chronic kidney disease, unspecified; R41.89 Other symptoms and signs involving cognitive functions and awareness; R29.898 Other symptoms and signs involving the musculoskeletal system; R26.81 Unsteadiness on feet; R09.89 Other specified symptoms and signs involving the circulatory and respiratory systems
CPT/HCPCS: 99214

== ENCOUNTER 2023-12-23 10:37 | Outpatient (REF) | payer MEDICARE, SELFPAY ==
[2023-12-23 14:09] LABS: MANUAL DIFF FLAG NO
[2023-12-23 14:18] LABS: Basophils Absolute Auto 0.1 X10*3/uL (0.0-0.2); Basophils Percent Auto 0.9 % (0-2); Eosinophils Absolute Auto 0.4 X10*3/uL (0.0-0.4); Eosinophils Percent Auto 5.3 % (0-4); Hematocrit 41.6 % (42.0-52.0); Hemoglobin 13.5 g/dl (14.0-18.0); Imm Gran Abs Auto 0.02 X10*3/uL (0.00-0.03); Imm Gran Pct Auto 0.3 % (0.0-0.4); Lymphocytes Absolute Auto 1.4 X10*3/uL (1.2-4.9); Lymphocytes Percent Auto 21.6 % (20-40); Mean Corpuscular HGB Conc 32.5 g/dl (31.0-36.0); Mean Corpuscular Hemoglobin 31.1 pg (27.0-33.0); Mean Corpuscular Volume 95.9 fL (80.0-98.0); Mean Platelet Volume 10.9 fL (9.4-12.4); Monocytes Absolute Auto 0.8 X10*3/uL (0.1-1.2); Monocytes Percent Auto 11.5 % (2-11); Neutrophils Percent Auto 60.4 % (45-73); Platelet Count 239 X10*3/uL (160-400); Red Blood Count 4.34 X10*6/uL (4.60-5.80); Red Cell Distribution Width 13.2 % (11.0-16.0); White Blood Count 6.6 X10*3/uL (4.8-10.8)
[2023-12-23 14:43] LABS: Estimated Average Glucose 114 mg/dL; Hemoglobin A1c % 5.6 % (<6.0)
[2023-12-23 15:15] LABS: Alanine Aminotransferase 20 U/L (0-40); Albumin Level 4.1 g/dL (3.5-5.0); Alkaline Phosphatase 95 U/L (39-117); Anion Gap 13 (12-20); Aspartate Amino Transferase 18 U/L (5-37); Bilirubin Total 0.6 mg/dL (0.0-1.0); Blood Urea Nitrogen 26 mg/dL (9-16); Calcium 8.8 mg/dL (8.4-10.2); Carbon Dioxide 27 mmol/L (22-29); Chloride 105 mmol/L (96-108); Cholesterol 117 mg/dL (<200); Estimated Glomerular Filt Rate 46; Glucose Fasting 103 mg/dL (60-99); Glucose Random 103 mg/dL (60-115); HDL Cholesterol 38 mg/dL (>40); LDL Cholesterol Calculated 67 mg/dL (<100); Potassium 4.2 mmol/L (3.3-5.1); Sodium 141 mmol/L (135-145); Total Protein 6.9 g/dL (6.5-8.0); Triglycerides 64 mg/dL (<150)
[2023-12-23 15:15] LABS: Prostate Specific Antigen Scr 0.46 ng/mL (<0.05-4.0)
[2023-12-23 15:17] LABS: TSH reflex Free T4 1.38 uIU/mL (0.32-4.0)
== END 2023-12-23 10:38 | disposition home or self-care (01) ==
LOC: HO.WFDLDS 10:37
PROVIDERS: Visit Provider Family Medicine
DX: Z00.00 Encounter for general adult medical examination without abnormal findings (principal); Z12.5 Encounter for screening for malignant neoplasm of prostate; R73.01 Impaired fasting glucose; R09.89 Other specified symptoms and signs involving the circulatory and respiratory systems; N18.9 Chronic kidney disease, unspecified
CPT/HCPCS: 36415; 80053; 80061; 83036; 84153; 84443; 85025

== ENCOUNTER 2024-01-21 16:29 | Outpatient (AMB) | payer MEDICARE, SELFPAY ==
--- NOTE | 2024-01-21 16:22 | A.OFFPC_ITS ---
Intake Visit Reasons: follow up labs/[phone] Intake Note: Patient is following up on labs today. Allergies lisinopril [LISINOPRIL] Allergy (Intermediate, Verified 01/21/24 16:24) ANGIOEDEMA Iodinated Contrast Media [IV CONTRAST] Allergy (Unknown, Verified 01/21/24 16:24 ) SWELLING orange juice [ORANGE JUICE] Allergy (Unknown, Verified 08/22/23 11:24) BPH/KIDNEY PROBLEM Medication List - Last Reconciled 01/21/24 by Hernando Mosqueda MD alfuzosin ER 10 mg PO BEDTIME amlodipine 10 mg PO DAILY 90 days atorvastatin 40 mg PO DAILY comp.stocking,knee,long,medium Daily As directed. 10-20 mm Hg. 99 days lorazepam 1 mg PO TID losartan 100 mg PO DAILY 90 days losartan 25 mg PO DAILY 90 days metoprolol succinate ER 150 mg (1.5 x 100 mg) PO DAILY 90 days nortriptyline 25 mg PO DAILY nortriptyline 10 mg PO BEDTIME sildenafil (Viagra) 100 mg PO DAILY PRN 30 days Tobacco use date assessed: 01/21/24 Fall risk assessment: No Falls in past year Last assessed Fall Risk: 01/21/24 Dental Screening Dental Screen Date: 01/21/24 Did you have a dental visit in the last 12 months?: No Did you have a dental problem in the last 6 months where you did not have access to dental care?: No Was dental information given to patient?: Patient declined HPI follow up labs/[phone] HPI Details 83 y/o male presents to review CPE-labs including A1c and renal function. Labs were drawn 12/23/23. Reviewed labs with pt. Ongoing mild anemia, mildly improving. Elevated creatinine of 1.45 - improved from 1.63 in August. A1c 5.6%. Triglycerides 64. TC 117. LDL 67. HDL low at 38. He is on artovastatin 40mg daily. Had decreased losartan due to blood pressures. [facility] Medical History Peripheral vascular disease Diet-controlled diabetes mellitus Essential hypertension HTN (hypertension) Surgical History History of surgery History of tonsillectomy History of bladder surgery Family History Father HTN (hypertension) Lung cancer Mother HTN (hypertension) Sister Mental health disorder Sister Anxiety Son No problems noted. Son No problems noted. Daughter No problems noted. Daughter No problems noted. [facility] Patient Tobacco Use Status: Former Tobacco user Years Smoked: 25 years e-Cigarette/Vaping Use: Never Used Second Hand Smoke Exposure: No service: Yes Current occupational status: retired Current occupational exposures/hazards: No Hearing needs: Yes Questionnaire Thrive Questionnaire Date Thrive assessed: 09/04/21 MAGNUS-7 AMB Questionnaire MAGNUS-7 Date MAGNUS - 7 assessed: 10/16/21 Source: Developed by Drs. Cameron Pimentel, Giovana Hendrix, Tim Wong and colleagues, with an educational monika from [employer]. Review of Systems Const Denies chills, Denies fatigue, Denies fever(s), Denies headache(s) and Denies weakness ENT Denies dizziness and Denies headache(s) Card Denies dyspnea Resp Denies cough, Denies dyspnea, Denies wheezing and Denies other (shortness of breath) Musc Denies numbness and Denies tingling Neuro Denies dizziness, Denies headache(s), Denies numbness, Denies tingling and Denies weakness Psych Denies anxiety and Denies depression Endo Denies fatigue Aller/Immun Denies wheezing Physical exam (Primary Care) Tobacco/Smoking Status: Tobacco use Status Tobacco use date assessed 01/21/24 01/21/24 16:26 Patient Tobacco Use Status Former Tobacco user 01/21/24 16:26 e-Cigarette/Vaping Use Never Used 01/21/24 16:26 Thrive Assessment: Date of Thrive Assessment Date Thrive assessed 09/04/21 01/21/24 16:26 Telehealth Telehealth Location of provider rendering services: practice address Location of patient: address on file Patient Identification confirmed using: Name, : Yes Telehealth method: voice only Patient verbally consented to treatment: Yes Patient verbally consented to billing insurance company: Yes Patient informed of any privacy concerns related to visit: Yes Minutes spent on Phone/Video with Pt.: 7 Assessment and Plan Assessment & Plan (1) CRF (chronic renal failure): Code(s): N18.9 - Chronic kidney disease, unspecified Plan: Decreased?losartan?as?his?renal?function?was?worsening. Blood?pressure?remains?controlled?and?creatinine?level?has?decreased Continue?losartan?as?prescribed Hydrate?well Follow-up?with?nephrology (2) Diet-controlled diabetes mellitus: Code(s): E11.9 - Type 2 diabetes mellitus without complications Plan: Diet-controlled?diabetes?and?his?A1c?is?now?in?top?normal?range Continue?diabetic?diet?and?exercise?and?weight?control (3) Low HDL (under 40): Code(s): E78.6 - Lipoprotein deficiency Plan: Mildly?low?HDL Encouraged?exercise (4) Mild anemia: Code(s): D64.9 - Anemia, unspecified Plan: Likely?secondary?to?his?chronic?renal?failure. Will?continue?to?follow (5) Hyperlipidemia: Code(s): E78.5 - Hyperlipidemia, unspecified Plan: LDL?cholesterol?is?controlled. Continue?diet?low?in?saturated?fats?and?cholesterol Continue?atorvastatin (6) Essential hypertension: Code(s): I10 - Essential (primary) hypertension Plan: Had?decreased?losartan?due?to?renal?function. Patient?reports?that?blood?pressures?are?still?well?controlled Continue?current?medication?regimen Coding Level of Care Code Tele Est Pt Level 2 (89816) Diagnoses CRF (chronic renal failure) N18.9 Diet-controlled diabetes mellitus E11.9 Low HDL (under 40) E78.6 Mild anemia D64.9 Hyperlipidemia E78.5 Essential hypertension I10
== END 2024-01-22 09:11 | disposition home or self-care (01) ==
LOC: HO.HMGFM 16:29
PROVIDERS: PCP Family Medicine; Visit Provider Family Medicine
DX: I12.9 Hypertensive chronic kidney disease with stage 1 through stage 4 chronic kidney disease, or unspecified chronic kidney disease (principal); E11.22 Type 2 diabetes mellitus with diabetic chronic kidney disease; N18.9 Chronic kidney disease, unspecified; E78.6 Lipoprotein deficiency; D64.9 Anemia, unspecified; E78.5 Hyperlipidemia, unspecified
CPT/HCPCS: 99441

== ENCOUNTER 2024-03-19 10:59 | Outpatient (AMB) | payer MEDICARE, SELFPAY ==
[2024-03-19 11:18] VITALS: BP 110/58; PULSE 67; O2SAT 96; BMI 25.8
--- NOTE | 2024-03-19 11:18 | A.OFFPC_ITS ---
Vital Signs 03/19/24 11:18 Height 5 ft 10.5 in Weight 182 lb 2 oz BMI 25.8 BP 110/58 L Blood Pressure Location Lt brachial Position Sitting Pulse 67 Pulse Source Pulse Oximeter Pulse Oximetry (%) 96 Oxygen Delivery Method Room Air Intake Visit Reasons: f/u hypertension Intake Note: Patient is here to follow p on hypertension Allergies lisinopril [LISINOPRIL] Allergy (Intermediate, Verified 03/19/24 11:23) ANGIOEDEMA Iodinated Contrast Media [IV CONTRAST] Allergy (Unknown, Verified 03/19/24 11:23) SWELLING orange juice [ORANGE JUICE] Allergy (Unknown, Verified 03/19/24 11:23) BPH/KIDNEY PROBLEM Medication List - Last Reconciled 03/19/24 by Hernando Mosqueda MD alfuzosin ER 10 mg PO BEDTIME amlodipine 10 mg PO DAILY 90 days atorvastatin 40 mg PO DAILY comp.stocking,knee,long,medium Daily As directed. 10-20 mm Hg. 99 days lorazepam 1 mg PO TID losartan 100 mg PO DAILY 90 days losartan 25 mg PO DAILY 90 days metoprolol succinate ER 150 mg (1.5 x 100 mg) PO DAILY 90 days nortriptyline 25 mg PO DAILY nortriptyline 10 mg PO BEDTIME sildenafil (Viagra) 100 mg PO DAILY PRN 30 days Tobacco use date assessed: 03/19/24 Fall risk assessment: No Falls in past year Last assessed Fall Risk: 03/19/24 Dental Screening Dental Screen Date: 03/19/24 HPI f/u hypertension HPI Details 83 y/o male presents to f/u hypertension . Blood pressure today 110/58. He is on amlodipine 10mg, losartan, metoprolol 150mg. [facility] Medical History Peripheral vascular disease Diet-controlled diabetes mellitus Essential hypertension HTN (hypertension) Surgical History History of surgery History of tonsillectomy History of bladder surgery Family History Father HTN (hypertension) Lung cancer Mother HTN (hypertension) Sister Mental health disorder Sister Anxiety Son No problems noted. Son No problems noted. Daughter No problems noted. Daughter No problems noted. Social History Housing: Condominium Patient Tobacco Use Status: Former Tobacco user Years Smoked: 25 years e-Cigarette/Vaping Use: Never Used Second Hand Smoke Exposure: No service: Yes Current occupational status: retired Current occupational exposures/hazards: No Hearing needs: Yes Questionnaire Thrive Questionnaire Date Thrive assessed: 09/04/21 MAGNUS-7 AMB Questionnaire MAGNUS-7 Date MAGNUS - 7 assessed: 10/16/21 Source: Developed by Drs. Cameron Pimentel, Giovaan Hendrix, Tim Wong and colleagues, with an educational monika from [employer]. Review of Systems Const Denies chills, Denies fatigue, Denies fever(s), Denies headache(s) and Denies weakness ENT Denies dizziness and Denies headache(s) Card Denies dyspnea Resp Denies cough, Denies dyspnea, Denies wheezing and Denies other (shortness of breath) Musc Denies numbness and Denies tingling Neuro Denies dizziness, Denies headache(s), Denies numbness, Denies tingling and Denies weakness Psych Denies anxiety and Denies depression Endo Denies fatigue Aller/Immun Denies wheezing Physical exam (Primary Care) Vital Signs: Last Vital Signs Pulse 67 03/19/24 11:18 BP 110/58 L 03/19/24 11:18 Pulse Ox 96 03/19/24 11:18 Oxygen Delivery Method Room Air 03/19/24 11:18 BMI result Body Mass Index 25.8 Tobacco/Smoking Status: Tobacco use Status Tobacco use date assessed 03/19/24 03/19/24 11:25 Patient Tobacco Use Status Former Tobacco user 03/19/24 11:22 e-Cigarette/Vaping Use Never Used 03/19/24 11:22 Thrive Assessment: Date of Thrive Assessment Date Thrive assessed 09/04/21 03/19/24 11:22 Const General: well developed; No acute distress Nutritional Appearance: well nourished Orientation/consciousness: patient oriented x3 HENMT Head: Yes normocephalic and Yes atraumatic Eyes General: appearance normal, both eyes and all related structures Pupils: Equal, round and reactive pupils present EOM: EOMs intact bilaterally Resp Effort & Inspection: normal respiratory effort Neuro General: patient oriented x3 and gait normal Cranial nerves: Yes Equal, round and reactive pupils present Psych Affect: normal affect Assessment and Plan Assessment & Plan (1) Essential hypertension: Code(s): I10 - Essential (primary) hypertension Plan: Blood?pressure?is?well?controlled.??Goal?is less?than?140/90 Continue?current?medication?regimen (2) CRF (chronic renal failure): Code(s): N18.9 - Chronic kidney disease, unspecified Plan: Had?decreased?losartan?due?to?rising?creatinine?level?and?this?had?improved He?is?hydrating?well Recheck?creatinine?at?next?visit Coding Level of Care Code Est Pt Level 3 (49800) Diagnoses Essential hypertension I10 CRF (chronic renal failure) N18.9
== END 2024-03-19 12:39 | disposition home or self-care (01) ==
PROVIDERS: PCP Family Medicine; Visit Provider Family Medicine
DX: I12.9 Hypertensive chronic kidney disease with stage 1 through stage 4 chronic kidney disease, or unspecified chronic kidney disease (principal); N18.9 Chronic kidney disease, unspecified
CPT/HCPCS: 99213

== ENCOUNTER 2024-07-31 11:27 | Outpatient (AMB) | payer MEDICARE, SELFPAY ==
--- NOTE | 2024-07-31 12:20 | A.OFFPC_ITS ---
Vital Signs 07/31/24 12:22 Height 5 ft 10 in Weight 180 lb BMI 25.8 BP 125/59 L Blood Pressure Location Rt brachial Position Sitting Respiration 14 Pulse 57 Pulse Source Pulse Oximeter Temp 97.7 F Temp Source Temporal Artery Scan Pulse Oximetry (%) 97 Oxygen Delivery Method Room Air Intake Visit Reasons: htn/renal function Intake Note: f/u HTN and renal function pt would also need medication refill Allergies lisinopril [LISINOPRIL] Allergy (Intermediate, Verified 07/31/24 12:20) ANGIOEDEMA Iodinated Contrast Media [IV CONTRAST] Allergy (Unknown, Verified 07/31/24 12:20) SWELLING orange juice [ORANGE JUICE] Allergy (Unknown, Verified 07/31/24 12:20) BPH/KIDNEY PROBLEM Tobacco use date assessed: 03/19/24 Dental Screening Dental Screen Date: 03/19/24 HPI htn/renal function HPI Details 83 y/o male presents to f/u hypertension , renal function. Had decreased losartan due to rising creatinine levels. Blood pressure today 125/59, 57p. He is on losartan, metoprolol 150mg, amlodipine 10mg daily. [facility] Medical History Peripheral vascular disease Diet-controlled diabetes mellitus Essential hypertension HTN (hypertension) Surgical History History of surgery History of tonsillectomy History of bladder surgery Family History Father HTN (hypertension) Lung cancer Mother HTN (hypertension) Sister Mental health disorder Sister Anxiety Son No problems noted. Son No problems noted. Daughter No problems noted. Daughter No problems noted. Social History Housing: Condominium Patient Tobacco Use Status: Former Tobacco user Years Smoked: 25 years e-Cigarette/Vaping Use: Never Used Second Hand Smoke Exposure: No service: Yes Current occupational status: retired Current occupational exposures/hazards: No Hearing needs: Yes Questionnaire PHQ-9 Over the last 2 weeks, how often have you been bothered by any of the following problems? 1. Little interest or pleasure in doing things: not at all 2. Feeling down, depressed, or hopeless: not at all 3. Trouble falling or staying asleep, or sleeping too much: not at all 4. Feeling tired or having little energy: not at all 5. Poor appetite or overeating: not at all 6. Feeling bad about yourself - or that you are a failure or have let yourself or your family down: not at all 7. Trouble concentrating on things, such as reading the newspaper or watching television: not at all 8. Moving or speaking so slowly that other people could have noticed. Or the opposite - being so fidgety or restless that you have been moving around a lot more than usual: not at all 9. Thoughts that you would be better off or of hurting yourself in some way: not at all Total score: 0 Source: Developed by Drs. Cameron Pimentel, Giovana Hendrix, Tim Wong and colleagues, with an educational monika from [employer]. Thrive Questionnaire Date Thrive assessed: 09/04/21 I am a: Patient What is your living situation today?: I have a steady place to live Within the past 12 months, did the food you bought not last and you didn't have the money to get more?: Never true Within the past 12 months, did you worry whether your food would run out before you got money to buy more?: Never true Do you have trouble paying for medicines?: No Do you have trouble getting transportation to medical appointments?: No Do you have trouble paying your heating and electricity bill?: No Do you have trouble taking care of your child, family member or friend?: No Do you have trouble with day-to-day activities such as bathing, preparing meals, shopping, managing finances, etc.?: No Are you currently unemployed and looking for a job?: No Are you interested in more education?: No Please select the resources that you would like help with: None Currently or been in a relationship where the following occur: No concerns reported THRIVE Score: 0 AUDIT C Alcohol Use Questionnaire (AUDIT-C) 1. How often do you have a drink containing alcohol?: Never Total Score: 0 MAGNUS-7 AMB Questionnaire MAGNUS-7 Date MAGNUS - 7 assessed: 10/16/21 Feeling nervous, anxious, or on edge: 0 = Not at all Not being able to stop or control worryin = Not at all Worrying too much about different things: 0 = Not at all Trouble relaxin = Not at all Being so restless that it is hard to sit still: 0 = Not at all Becoming easily annoyed or irritable: 0 = Not at all Feeling afraid as if something awful might happen: 0 = Not at all Total MAGNUS-7 score (0-4 normal; 5-9 mild; 10-14 moderate; 15-21 severe): 0 Source: Developed by Drs. Cameron Pimentel, Giovana Hendrix, Tim Wong and colleagues, with an educational monika from [employer]. Review of Systems Const Denies chills, Denies fatigue, Denies fever(s), Denies headache(s) and Denies weakness ENT Denies dizziness and Denies headache(s) Card Denies chest pain, Denies lightheadedness, Denies dyspnea and Denies other (Palpitations) Resp Denies cough, Denies dyspnea, Denies wheezing and Denies other ( shortness of breath) Musc Denies numbness and Denies tingling Neuro Denies dizziness, Denies headache(s), Denies numbness, Denies tingling, Denies paresthesias and Denies weakness Psych Denies anxiety and Denies depression Endo Denies fatigue Aller/Immun Denies wheezing Physical exam (Primary Care) Vital Signs: Last Vital Signs Temp 97.7 F 07/31/24 12:22 Pulse 57 07/31/24 12:22 Resp 14 07/31/24 12:22 BP 125/59 L 07/31/24 12:22 Pulse Ox 97 07/31/24 12:22 Oxygen Delivery Method Room Air 07/31/24 12:22 BMI result Body Mass Index 25.8 Tobacco/Smoking Status: Tobacco use Status Tobacco use date assessed 03/19/24 07/31/24 12:24 Patient Tobacco Use Status Former Tobacco user 07/31/24 12:24 e-Cigarette/Vaping Use Never Used 07/31/24 12:24 PHQ-9: PHQ-9 Score PHQ-9: Total score 0 07/31/24 12:32 Thrive Assessment: Date of Thrive Assessment Date Thrive assessed 09/04/21 07/31/24 12:24 Currently or been in a relationship where the following occur: No concerns reported Const General: no acute distress and well developed Nutritional Appearance: well nourished Orientation/consciousness: patient oriented x3 [facility]: Yes normocephalic and Yes atraumatic Eyes General: appearance normal, both eyes and all related structures Pupils: Equal, round and reactive pupils present EOM: EOMs intact bilaterally Resp Effort & Inspection: normal respiratory effort Auscultation: clear to auscultation bilaterally Cardio Rate: regular rate Rhythm: regular rhythm Heart sounds: S1 normal heart sound present, S2 normal heart sound present, no gallops, no murmurs and no rubs Neuro General: patient oriented x3 and gait normal Cranial nerves: Yes Equal, round and reactive pupils present Psych Affect: normal affect Coding Level of Care Code Est Pt Level 3 (11876) Diagnoses Essential hypertension I10 CRF (chronic renal failure) N18.9 Assessment & Plan Assessment & Plan (1) Essential hypertension: Code(s): I10 - Essential (primary) hypertension Category: Medical Plan: Had?decreased?losartan?due?to?renal?function?at?a?prior?visit Blood?pressure?remains?controlled Continue?current?medication?regimen (2) CRF (chronic renal failure): Code(s): N18.9 - Chronic kidney disease, unspecified Category: Medical Plan: Now?followed?by?Nephrology Stable Will?continue?current?medications Avoid?NSAIDs Avoid?salt/sodium Follow-up?with?nephrology?as?recommended
[2024-07-31 12:22] VITALS: BP 125/59; PULSE 57; RESP 14; TEMP 36.5; O2SAT 97; BMI 25.8
== END 2024-07-31 12:43 | disposition home or self-care (01) ==
PROVIDERS: PCP Family Medicine; Visit Provider Family Medicine
DX: I12.9 Hypertensive chronic kidney disease with stage 1 through stage 4 chronic kidney disease, or unspecified chronic kidney disease (principal); N18.9 Chronic kidney disease, unspecified

== ENCOUNTER → 2024-07-31 11:27 | Outpatient (BNVA) | payer MEDICARE, SELFPAY | PROVIDERS: PCP Family Medicine; Visit Provider Family Medicine | DX: I12.9 Hypertensive chronic kidney disease with stage 1 through stage 4 chronic kidney disease, or unspecified chronic kidney disease (principal); N18.9 Chronic kidney disease, unspecified | CPT/HCPCS: 96127; 99212 ==

== ENCOUNTER 2024-11-04 09:52 | Outpatient (REF) | payer MEDICARE, SELFPAY ==
--- OUTSIDE RECORDS SUMMARY | 2024-11-04 11:38 | XMS_ITS ---
[facility] Organization [facility] Address [address] [place] [address] Care Team Providers Care Split Leather Mosser Name Role Phone aJylin AUSTIN, Hernando Primary Care Provider Annette Magallanes Unavailable [phone] Allergies Allergen (clinical drug ingredient) Drug/Non Drug Allergy documented on EMR Reaction Allergy Type Onset Date Status Iodine Unknown Drug Allergy Active REASON FOR VISIT Painful nail(s) aggrevated by shoes causing difficulty standing/walking, Wart(s), Skin problem(s) Medications Medication SIG (Take, Route, Frequency, Duration) Notes Start Date End Date Status Losartan Potassium 100 MG 1 tablet Orall y Once a day for 30 day(s) Not-Taking Nortriptyline HCl 25 MG 1 capsule Orally Once a day for 30 day(s) Not-Taking Ritalin Not-Taking amLODIPine Besylate 10 MG 1 tablet Orall y Once a day Not-Taking hydroCHLOROthiazide 12.5 MG 1 capsule in the morning Orally Once a day for 30 day(s) Not-Taking LORazepam 1 MG 1 tablet at bedtime as needed Orally Once a day Active Atorvastatin Calcium 40 MG 1 tablet Oral ly Once a day Active Nortriptyline HCl 25 MG 1 capsule Orally Once a day Not-Taking Alfuzosin HCl ER 10 MG 1 tablet immediat hanna after the same meal Orally Once a day for 30 day(s) Active Metoprolol Succinate 100 MG 1 capsule Or ally Once a day Active Nortriptyline HCl 10 MG 1 capsule at bed time Orally Once a day Active Metamucil Active amLODIPine Besylate 10 MG 1 tablet Orall y Once a day for 30 day(s) Active Losartan Potassium 100 MG 1 tablet Orally Active Methylphenidate HCl 5 MG 1 tablet on an empty stomach Orally Twice a day Not-Taking Medrol 4 MG as directed Orally 12/01/2019 Not-Taking Medrol 4 MG as directed Orally 12/02/2019 Not-Taking Keflex 500 500 MG 1 capsule Orally every 12 hrs for 7 days 05/23/2021 Not-Taking Paxil 10 MG 1 tablet in the morning Orally Once a day for 30 day(s) Not-Taking Social History Tobacco Use: Social History Observation Description Date Details (start date - stop date) Former Smoker NA - NA Tobacco Use/Smoking Question Answer Notes Are you a: former smoker Additional Findings: Tobacco Non-User Current no n-smoker Alcohol Screen Question Answer Notes Did you have a drink containing alcohol in the p ast year? No Points 0 Interpretation Negative Tobacco use other than smoking: Question Answer Notes Are you an other tobacco user? No Vital Signs Height 5 ft 10 in in 07/22/2024 Weight 160 lbs 07/22/2024 BMI 22.96 kg/m2 07/22/2024 Blood pressure systolic 130 mm Hg 07/22/20 24 Blood pressure diastolic 60 mm Hg 024 Encounters Encounter Location Date Provider Diagnosis [facility] [address] [place] [address] 07/22/2024 Annette Ortega Xerosis of skin L85.3 ; Tinea unguium B35.1 ; Plantar wart B07.0 ; Pain in right toe(s) M79.674 ; Pain in left toe(s) M79.675 ; Pain in left foot M79.672 and Pain in right foot M79.671 Assessments Encounter Date Diagnosis (ICD Code) Assessment Notes Treatment Notes Treatment Clinical Notes Section Notes 07/22/2024 Xerosis of skin (ICD-10 - L85.3) 07/22/2024 Tinea unguium (ICD-10 - B35.1) 07/22/2024 Plantar wart (ICD-10 - B07.0) 07/22/2024 Pain in right toe(s) (ICD-10 - M79.674) 07/22/2024 Pain in left toe(s) (ICD-10 - M79.675) 07/22/2024 Pain in left foot (ICD-10 - M79.672) 07/22/2024 Pain in right foot (ICD-10 - M79.671) Plan Of Treatment Next Appt Details Follow Up: 2 Months, Reason: Provider Name:Annette joseph, 12/29/2024 11:00:00 AM, [address] [facility], [place], [address], Procedure Notes * Category Sub-Category Detail Notes Wart Treatment Procedure Verrucae(s) were debrided to pin-point bleeding margins with sterile surgical blade, silver nitrate chemocautery applied, recomm. immune-boosting meds such as zinc, recomm. follow up with topical chemosurgical agents, Pt defers any other forms of tx (27088) Debride Nail 6-10 Nail debridement Nail debridem ent performed extensively to reduce/remove overall nail length and girth, subungual debris, and necrotic tissue, by manual and electrical means with use of a nail nipper and/or dremel, to more viable healthy nail plate or bed tissue 6-10. Silver nitrate used for any petechial bleeding as necessary. Patient chooses, no pharmaceutical tx (10525) Progress Notes * Alexi OCONNELL PDOB: 0 (83 yo M)Acc No.[id number]:07/22/2024 Progress Note Patient:?Anish Alexi P Provider:?Annette Ortega DPM :1940???Age:83 Y???Sex:Male Hussein e:07/22/2024 Address:[address] [place] [address], [place], [place] Pcp:Hernando Mosqueda MD Subjective: * Chief Complaints: * ???Painful nail(s) aggrevate d by shoes causing difficulty standing/walkingWart(s)Skin problem(s) * HPI: ???Painful Nails:?Pt States Last PCP Visit:?Date:?05/07/2024 ???Skin problems:?Pt States PCP Visit: ?DATE?05/07/2024 ?Nature:?dryness , scaling.?Location:?B/L .?Duration:?several days.?Course:?worse.? * ROS:?General/Constitutional:?Nausea?denies.?Vomiting?denies.?Hunger Thirst?denies.?Loss appetite?denies.?Chills?denies.?Fatigue?denies.?Fever?denies.?Night Sweats?denies.?Unexplained weight loss?denies.?Unexplained weight gain?denies.?HEENTM:?Dentures?admits.?Dizziness?denies.?Glasses/contacts?admits.?Retinopathy?de nies.?Blurred/double vision?denies.?TMJ?denies.?Discharge/drainage?denies.?Implants?denies.?Sore throat?denies.?Dental implants?denies.?Hard of hearing ?denies.?Difficulty chewing/swallowing/speaking?denies.?Nose bleeds?denies.?Sore mouth?denies.?Respiratory:?On Oxygen?denies.?Pneumonia/pleurisy?denies.?Bronchitis?denies.?Emphysema?denies.?C oughing?denies.?Cough blood?denies.?Shortness of breath?denies.?Wheezing?denies.?Cardiovascular:?Pacemaker?denies.?MVP?denies.?WPW?denies.?CHF?denies.?Heart attack?denies.?Septal defect?denies.?Rapid beat?denies.?Chest pain ?denies.?Atrial Fib.?denies.?Murmur/Palpitations?denies.?Gastrointestinal:?Hemorrhoids?denies.?Stomach/Abdominal pain?denies.?Dark blood stool?denies.?Irritable bowel ?denies.?Constipation?denies.?Diarrhea?denies.?Hematology:?Swelling?denies.?Clots?denies.?Varicose Veins?denies.?Bruising?denies.?Bleeding problem?denies.?Genitourinary:?Blood urine?denies.?Frequent/Painfu/urination/bladder control?denies.?Kidney stones?denies.?Infection (UTI)?denies.?Nephropathy?denies.?sex trans dis (STD)?denies.?Prostate?denies.?Musculoskeletal:?Hammertoes?denies.?Bunions?denies.?Back Pain?denies.?Muscle Cramps/ Resting?denies.?Muscle cramps / walking?denies.?Generalized aches and pains?admits.?Weakness?denies.?Integ.:?Cunningham?denies.?Scars?denies.?Corns/calluses?admits.?Ingrown nails?denies.?Painful nails?denies.?Open Sores?denies.?Rashes?denies.?Neurologic:?Difficulty sleeping?denies.?Brain disorder?denies.?Numbness?denies.?Balance trouble?denies.?Confusion?denies.?Fainting/blackouts?denies.?Tingling?denies.?Tr emors?denies.? * Medical History:? * Surgical History:?Bladder [age]vascular surgery- lef leg 2013 * Hospitalization/Major Diagno stic Procedure:?Denies Past Hospitalization * Family History:?Mother: dece ased.?Father: .?Siblings: .? * Social History:?Tobacco Use:?Tobacco Use/Smoking?Are you a:?former smoker ?Additional Findings: Tobacco Non-User?Current non-smoker ?Tobacco use other than smoking?Are you an other tobacco user??No ???Drugs/Alcohol:?Drugs?Have you used drugs other than those for medical reasons in the past 12 months??No ?Alcohol Screen?Did you have a drink containing alcohol in the past year??No ?Points?0 ?Interpretation?Negative ???Miscellaneous:?no Caffeine, decaff , 1-2 cups per day. ?Children: yes, 4. ?Exercise: yes, walking. ?Marital status: . ?Occupation: retired [employer]. * Medications:?TakingNortripty line HCl 10 MG Capsule 1 capsule at bedtime Orally Once a dayMetamucil amLODIPine Besylate 10 MG Tablet 1 tablet Orally Once a dayLosartan Potassium 100 MG Tablet 1 tablet Orally LORazepam 1 MG Tablet 1 tablet at bedtime as needed Orally Once a dayAtorvastatin Calcium 40 MG Tablet 1 tablet Orally Once a dayAlfuzosin HCl ER 10 MG Tablet Extended Release 24 Hour 1 tablet immediately after the same meal Orally Once a dayMetoprolol Succinate 100 MG Capsule ER 24 Hour Sprinkle 1 capsule Orally Once a dayTaking Nortriptyline HCl 10 MG Capsule 1 capsule at bedtime Orally Once a dayTaking Metamucil Taking amLODIPine Besylate 10 MG Tablet 1 tablet Orally Once a dayTaking Losartan Potassium 100 MG Tablet 1 tablet Orally Taking LORazepam 1 MG Tablet 1 tablet at bedtime as needed Orally Once a dayTaking Atorvastatin Calcium 40 MG Tablet 1 tablet Orally Once a dayTaking Alfuzosin HCl ER 10 MG Tablet Extended Release 24 Hour 1 tablet immediately after the same meal Orally Once a dayTaking Metoprolol Succinate 100 MG Capsule ER 24 Hour Sprinkle 1 capsule Orally Once a dayNot-Taking/PRNNortriptyline HCl 25 MG Capsule 1 capsule Orally Once a dayamLODIPine Besylate 10 MG Tablet 1 tablet Orally Once a dayLosartan Potassium 100 MG Tablet 1 tablet Orally Once a dayNortriptyline HCl 25 MG Capsule 1 capsule Orally Once a dayhydroCHLOROthiazide 12.5 MG Capsule 1 capsule in the morning Orally Once a dayRitalin Keflex 500 500 MG Capsule 1 capsule Orally every 12 hrsMedrol 4 MG Tablet Therapy Pack as directed Orally Medrol 4 MG Tablet Therapy Pack as directed Orally Paxil 10 MG Tablet 1 tablet in the morning Orally Once a dayMethylphenidate HCl 5 MG Tablet 1 tablet on an empty stomach Orally Twice a dayMedication List reviewed and reconciled with the patientNot-Taking/PRN Nortriptyline HCl 25 MG Capsule 1 capsule Orally Once a dayNot-Taking/PRN amLODIPine Besylate 10 MG Tablet 1 tablet Orally Once a dayNot-Taking/PRN Losartan Potassium 100 MG Tablet 1 tablet Orally Once a dayNot-Taking/PRN Nortriptyline HCl 25 MG Capsule 1 capsule Orally Once a dayNot-Taking/PRN hydroCHLOROthiazide 12.5 MG Capsule 1 capsule in the morning Orally Once a dayNot-Taking/PRN Ritalin Not-Taking/PRN Keflex 500 500 MG Capsule 1 capsule Orally every 12 hrsNot-Taking/PRN Medrol 4 MG Tablet Therapy Pack as directed Orally Not-Taking/PRN Medrol 4 MG Tablet Therapy Pack as directed Orally Not-Taking/PRN Paxil 10 MG Tablet 1 tablet in the morning Orally Once a dayNot-Taking/PRN Methylphenidate HCl 5 MG Tablet 1 tablet on an empty stomach Orally Twice a dayMedication List reviewed and reconciled with the patient * Allergies:?Iodineyes[Allergi es Verified] Objective: * Vitals:?Ht: 5 ft 10 in, Wt: 160, BMI: 22.96, Shoe size: 10-10.5, BP: 130/60 mm Hg, Wt-k.57 kg. * Examination: ???Nails: ?NAILS are:?Elongated, overgrown, dystrophic, lytic, greater than 3mm thick, discolored and friable with crumbly malodorous subungual debris, with pain on palpation, 1-5 B/L.?Dermatologic: ?SKIN FINDINGS:?Skin shows sign(s) of, dryness, scaling, in a stocking fashion, no fissure(s) present, B/L.?VERRUCA:?Reveals Multiple ( 3), multi-loculated , mosaic, round, raised, flat-topped, petechial bleeding papulae(s), with cauliflower appearance and interrruption of skin lines, with pain to lateral compression, and size estimated at 5mm diameter, plantar Forefoot, B/L.? Assessment: * Assessment: 1.?Tinea unguium - B35.1 (Pr imary)?2.?Xerosis of skin - L85.3, Acute problem, Uncomplicated (3),Rx Management (4)?3.?Plantar wart - B07.0?4.?Pain in right toe(s) - M79.674?5.?Pain in left toe(s) - M79.675?6.?Pain in left foot - M79.672?7. Pain in right foot - M79.671? Plan: * Treatment: * Procedures:?Debride Nail 6-10:?Nail debridement?Nail debridement performed extensively to reduce/remove overall nail length and girth, subungual debris, and necrotic tissue, by manual and electrical means with use of a nail nipper and/or dremel, to more viable healthy nail plate or bed tissue 6-10. Silver nitrate used for any petechial bleeding as necessary. Patient chooses, no pharmaceutical tx (67123).?Wart Treatment:?Procedure?Verrucae(s) were debrided to pin-point bleeding margins with sterile surgical blade, silver nitrate chemocautery applied, recomm. immune-boosting meds such as zinc, recomm. follow up with topical chemosurgical agents, Pt defers any other forms of tx (58157).? * Procedure Codes:?13279 DEBRI DE NAIL, 6 OR MORE, Modifiers: XS 56651 Wart Destruction, 1-14, Modifiers: XS * Follow Up:?2 Months * Images: * Sign off status: Completed true * Provider:?Annette Ortega, RAQUEL Date:? Generated for Ganesh dalton/Jenny/Chema on:?11/04/2024 11:38 AM EST History and Physical Notes * HPI (History of Present Illness) Category Sub-Category Detail Notes Category Not es Painful Nails Pt States Last PCP Visit: Date:: 05/07/2024 Skin problems Nature: dryness , scaling Location: B/L Duration: several days Course: worse Pt States PCP Visit: DATE: 05/07/2024 Examination Category Sub-Category Detail Notes Category Not es Dermatologic SKIN FINDINGS: Skin shows sign( s) of, dryness, scaling, in a stocking fashion, no fissure(s) present, B/L VERRUCA: Reveals Multiple ( 3 ), multi-loculated , mosaic, round, raised, flat- topped, petechial bleeding papulae(s), with cauliflower appearance and interrruption of skin lines, with pain to lateral compression, and size estimated at 5mm diameter, plantar Forefoot, B/L Nails NAILS are: Elongated, overg rown, dystrophic, lytic, greater than 3mm thick, discolored and friable with crumbly malodorous subungual debris, with pain on palpation, 1-5 B/L
--- OUTSIDE RECORDS SUMMARY | 2024-11-04 11:38 | XMS_ITS | Clinical Summary ---
Author Organization [facility] Address [address] [address] Care Team Providers Care Shuttle Hand Name Role Phone Hernando Mosqueda MD Primary Care Provider Allergies Active Allergy Reactions Criticality Noted Date Comments Iodinated Contrast Media Other (see comments) 06/01/2021 Other reaction(s): lip swelling Iodine Other (see comments) 05/31/2023 Lisinopril 05/31/2022 Other reaction(s): lip swelling Medications losartan (COZAAR) 100 MG tablet Take 1 tablet by mouth 1 (one) time each day Active LORazepam (ATIVAN) 1 MG tablet Take 1 tablet by mouth 3 (three) times a day Active atorvastatin (LIPITOR) 40 MG tablet Take 1 tablet by mouth 1 (one) time each day Active alfuzosin (UROXATRAL) 10 MG 24 hr tablet Take 1 tablet by mouth 1 (one) time each day Active metoprolol succinate XL (Toprol XL) 100 MG 24 hr tablet Take 150 mg by mouth 1 (one) time each day Active amLODIPine (NORVASC) 10 MG tablet Take 1 tablet by mouth 1 (one) time each day 10/19/2019 Active nortriptyline (PAMELOR) 25 MG capsule Take 1 capsule by mouth 1 (one) time each day Active Active Problems Problem Noted Date Diagnosed Date Stage 3b chronic kidney disease 06/03/2023 Anxiety 05/31/2023 05/31/2023 Benign prostatic hyperplasia 05/31/2022 Diabetes mellitus 05/31/2022 Gastroesophageal reflux disease 05/31/2022 H/O: endocrine disorder 05/31/2022 Hyperlipidemia 05/31/2022 Mixed anxiety and depressive disorder 05/31/2022 Peripheral arterial occlusive disease 05/31/2022 Peripheral vascular disease 05/31/2022 Tobacco user 05/31/2022 Stage 3a chronic kidney disease 05/31/2022 Renal osteodystrophy 05/31/2022 Type 2 diabetes mellitus wit h diabetic chronic kidney disease 05/31/2022 Benign essential hypertension 06/01/2021 Chronic kidney disease 06/01/2021 Hypertensive renal disease 06/01/2021 Malignant neoplasm of urinary bladder 06/01/2021 Immunizations Name Administration Dates Next Due Pneumococcal Polysaccharide 04/07/2013 Family History Medical History Relation Comments Hypertension Father Hypertension Mother Relation Status Comments Father Mother Social History Tobacco Use Types Packs/Day Years Used Date Smoking Tobacco: Former Cigarettes Q uit: 10/07/2011 Smokeless Tobacco: Never Tobacco Cessation:Counseling Given: Not Answered Comments:Smoking History Info:Every day Alcohol Use Standard Drinks/Week Comments No 0 (1 standard drink = 0.6 oz pur e alcohol) Sex and Gender Information Value Date Recorded Sex Assigned at Not on file Legal Sex Male 5:06 PM EST Gender Identity Not on file Sexual Orientation Not on file Last Filed Vital Signs Vital Sign Reading Time Taken Comments Blood Pressure 129/60 06/01/2024 1:07 PM EDT Pulse 61 06/01/2024 1:07 PM EDT Temperature - - Respiratory Rate - - Oxygen Saturation 95% 06/01/2024 1:07 PM EDT Inhaled Oxygen Concentration - - Weight 82.6 kg (182 lb) 06/01/2024 1:07 PM EDT Height 180.3 cm (5' 11 ) 10/19/2019 12:00 PM EST Body Mass Index 25.38 10/19/2019 12:00 PM EST Plan of Treatment Upcoming Encounters Date Type Department Care Team (Late st Contact Info) Description 06/10/2025 1:30 PM EDT Office Visit [facility] [address] [place] [address] Claus Winkler MD [address] [facility] [address] [place] [address] Health Maintenance Due Date Last Done Comments Pneumococcal Vaccine: 65+ Ye ars (2 of 2 - PCV) 04/07/2014 04/07/2013 Diabetes: Hemoglobin A1C 05/31/2022 Diabetes: Ophthalmology Exam 05/31/2022 Diabetes: Pedal Pulse Checked 05/31/2022 Diabetes: Sensory Foot Exam 05/31/2022 Diabetes: Visual Foot Exam 05/31/2022 Influenza Vaccine (#1) 2024 Hepatitis B Vaccine Aged Out No longe r eligible based on patient's age to complete this topic Insurance MEDICARE [facility] MEDICARE [facility] Care Teams Shuttle Hand Relationship Specialty Start Date End Date Hernando Mosqueda MD [address] [address] PCP - General 10/17/20
--- OUTSIDE RECORDS SUMMARY | 2024-11-04 11:38 | XMS_ITS ---
Author Organization [facility] fausto Nilwood Address [address] [place] [address] Care Team Providers Care Ammonia Box Tender Name Role Phone Jaylin AUSTIN, [place] Primary Care Provider Annette Magallanes Unavailable [phone] Allergies Allergen (clinical drug ingredient) Drug/Non Drug Allergy documented on EMR Reaction Allergy Type Onset Date Status Iodine Unknown Drug Allergy Active REASON FOR VISIT Painful nail(s) aggrevated by shoes causing difficulty standing/walking, Wart(s), Skin problem(s) Medications Medication SIG (Take, Route, Frequency, Duration) Notes Start Date End Date Status Medrol 4 MG as directed Orally 12/01/2019 Not-Taking Keflex 500 500 MG 1 capsule Orally every 12 hrs for 7 days 05/23/2021 Not-Taking Medrol 4 MG as directed Orally 12/02/2019 Not-Taking Methylphenidate HCl 5 MG 1 tablet on an empty stomach Orally Twice a day Not-Taking Paxil 10 MG 1 tablet in the morning Orally Once a day for 30 day(s) Not-Taking Ritalin Not-Taking hydroCHLOROthiazide 12.5 MG 1 capsule in the morning Orally Once a day for 30 day(s) Not-Taking amLODIPine Besylate 10 MG 1 tablet Orall y Once a day Not-Taking Nortriptyline HCl 25 MG 1 capsule Orally Once a day for 30 day(s) Not-Taking Losartan Potassium 100 MG 1 tablet Orall y Once a day for 30 day(s) Not-Taking LORazepam 1 MG 1 tablet at bedtime as needed Orally Once a day Active Nortriptyline HCl 25 MG 1 capsule Orally Once a day Not-Taking Metoprolol Succinate 100 MG 1 capsule Or ally Once a day Active Alfuzosin HCl ER 10 MG 1 tablet immediat hanna after the same meal Orally Once a day for 30 day(s) Active Atorvastatin Calcium 40 MG 1 tablet Oral ly Once a day Active amLODIPine Besylate 10 MG 1 tablet Orall y Once a day for 30 day(s) Active Metamucil Active Losartan Potassium 100 MG 1 tablet Orally Active Nortriptyline HCl 10 MG 1 capsule at bed time Orally Once a day Active Social History Tobacco Use: Social History Observation [...] Signs Height 5 ft 10 in in 10/09/2024 Weight 160 lbs 10/09/2024 BMI 22.96 kg/m2 10/09/2024 Blood pressure systolic 130 mm Hg 10/09/19 25 Blood pressure diastolic 66 mm Hg 025 Encounters Encounter Location Date Provider Diagnosis [facility] [address] [place] [address] 10/09/2024 Annette Ortega Tinea unguium B35.1 ; Plantar wart B07.0 ; Pain in right toe(s) M79.674 ; Pain in left toe(s) M79.675 ; Pain in left foot M79.672 and Pain in right foot M79.671 Assessments Encounter Date Diagnosis (ICD Code) Assessment Notes Treatment Notes Treatment Clinical Notes Section Notes 10/09/2024 Tinea unguium (ICD-10 - B35.1) 10/09/2024 Plantar wart (ICD-10 - B07.0) 10/09/2024 Pain in right toe(s) (ICD-10 - M79.674) 10/09/2024 Pain in left toe(s) (ICD-10 - M79.675) 10/09/2024 Pain in left foot (ICD-10 - M79.672) 10/09/2024 Pain in right foot (ICD-10 - M79.671) Plan Of Treatment Next Appt Details Follow Up: 2 Months, Reason: Provider Name:Annette joseph, 12/29/2024 11:00:00 AM, [address] [facility], [place], [address], Procedure Notes * Category Sub-Category Detail Notes Wart Treatment Procedure Verrucae(s) were debrided to pin-point bleeding margins with sterile surgical blade, silver nitrate chemocautery applied, recomm. immune-boosting meds such as zinc, recomm. follow up with topical chemosurgical agents, Pt defers any other forms of tx (57020) Debride Nail 6-10 Nail debridement Due to the cl inical pathology outlined in the exam findings, performance of this nail treatment is medically necessary as its management by an unskilled/untrained nonprofessional would put this patients foot and overall health at risk. Therefore, debridement to affected nail(s), as described in exam ( TA, T1, T2, T3, T4, T5, T6, T7, T8, T9, ), was performed exclusively by the physician of record to reduce/remove overall nail length, girth, thickness, subungual debris, and necrotic tissue, by manual and/or electrical means through the use of a nail nipper and/or dremel-type air grinder, to a more viable healthy nail plate or bed tissue 6-10 nails in total. Silver nitrate was used for any petechial bleeding as necessary. Definitive antifungal treatment options, both pharmaceutical and surgical, have been reviewed and discussed with the patient. The patient solely prefers the use of intermittent/as needed professional debridement services for their nail condition and understands the need for additional periodic treatments to maintain effectiveness in symptomatic relief - 29589 Progress Notes * Alexi OCONNELL PDOB: 0 (83 yo M)Acc No.[id number]:10/09/2024 Progress Note Patient:?JOHN Alexi P Provider:?Annette Ortega DPM :1940???Age:83 Y???Sex:Male Hussein e:10/09/2024 Address:[address] [place] [address], [id number] Pcp:Hernando Mosqueda MD Subjective: * Chief Complaints: * ???Painful nail(s) aggrevate d by shoes causing difficulty standing/walkingWart(s)Skin problem(s) * HPI: ???Painful Nails:?Pt States Last PCP Visit:?Date:?07/08/2024 ???Skin problems:?Pt States PCP Visit: ?DATE?07/08/2024 * ROS:?General/Constitutional:?Nausea?denies.?Vomiting?denies.?Hunger Thirst?denies.?Loss appetite?denies.?Chills?denies.?Fatigue?denies.?Fever?denies.?Night Sweats?denies.?Unexplained weight loss?denies.?Unexplained [...] Surgical History:?Bladder 19 12vascular surgery- lef leg 2012 * Hospitalization/Major Diagno stic Procedure:?Denies Past Hospitalization [...] alcohol in the past year??No ?Points?0 ?Interpretation?Negative ???Miscellaneous:?Caffeine: no, decaff , 1-2 cups per day. ?Children: yes, 4. ?Exercise: yes, walking. ?Marital status: . ?Occupation: retired [employer]. * Medications:?TakingNortripty line HCl 10 MG Capsule 1 capsule at bedtime Orally Once a day Metamucil amLODIPine Besylate 10 MG Tablet 1 tablet Orally Once a day Losartan Potassium 100 MG Tablet 1 tablet Orally LORazepam 1 MG Tablet 1 tablet at bedtime as needed Orally Once a day Atorvastatin Calcium 40 MG Tablet 1 tablet Orally Once a day Alfuzosin HCl ER 10 MG Tablet Extended Release 24 Hour 1 tablet immediately after the same meal Orally Once a day Metoprolol Succinate 100 MG Capsule ER 24 Hour Sprinkle 1 capsule Orally Once a day Taking Nortriptyline HCl 10 MG Capsule 1 capsule at bedtime Orally Once a day Taking Metamucil Taking amLODIPine Besylate 10 MG Tablet 1 tablet Orally Once a day Taking Losartan Potassium 100 MG Tablet 1 tablet Orally Taking LORazepam 1 MG Tablet 1 tablet at bedtime as needed Orally Once a day Taking Atorvastatin Calcium 40 MG Tablet 1 tablet Orally Once a day Taking Alfuzosin HCl ER 10 MG Tablet Extended Release 24 Hour 1 tablet immediately after the same meal Orally Once a day Taking Metoprolol Succinate 100 MG Capsule ER 24 Hour Sprinkle 1 capsule Orally Once a day Not-Taking/PRNNortriptyline HCl 25 MG Capsule 1 capsule Orally Once a day amLODIPine Besylate 10 MG Tablet 1 tablet Orally Once a day Losartan Potassium 100 MG Tablet 1 tablet Orally Once a day Nortriptyline HCl 25 MG Capsule 1 capsule Orally Once a day hydroCHLOROthiazide 12.5 MG Capsule 1 capsule in the morning Orally Once a day Ritalin Keflex 500 500 MG Capsule 1 capsule Orally every 12 hrs Medrol 4 MG Tablet Therapy Pack as directed Orally Medrol 4 MG Tablet Therapy Pack as directed Orally Paxil 10 MG Tablet 1 tablet in the morning Orally Once a day Methylphenidate HCl 5 MG Tablet 1 tablet on an empty stomach Orally Twice a day Medication List reviewed and reconciled with the patientNot-Taking/PRN Nortriptyline HCl 25 MG Capsule 1 capsule Orally Once a day Not-Taking/PRN amLODIPine Besylate 10 MG Tablet 1 tablet Orally Once a day Not-Taking/PRN Losartan Potassium 100 MG Tablet 1 tablet Orally Once a day Not-Taking/PRN Nortriptyline HCl 25 MG Capsule 1 capsule Orally Once a day Not-Taking/PRN hydroCHLOROthiazide 12.5 MG Capsule 1 capsule in the morning Orally Once a day Not-Taking/PRN Ritalin Not-Taking/PRN Keflex 500 500 MG Capsule 1 capsule Orally every 12 hrs Not-Taking/PRN Medrol 4 MG Tablet Therapy Pack as directed Orally Not-Taking/PRN Medrol 4 MG Tablet Therapy Pack as directed Orally Not-Taking/PRN Paxil 10 MG Tablet 1 tablet in the morning Orally Once a day Not-Taking/PRN Methylphenidate HCl 5 MG Tablet 1 tablet on an empty stomach Orally Twice a day Medication List reviewed and reconciled with the patient * Allergies:?Iodineyes[Allergi es Verified] Objective: * Vitals:?Ht: 5 ft 10 in, Wt: 160, BMI: 22.96, Shoe size: 10-10.5, BP: 130/66 mm Hg, Wt-k.57 kg. * Examination: ???Nails: ?NAILS are:?Elongated, overgrown, dystrophic, lytic, greater than 3mm thick, discolored and friable with crumbly malodorous subungual debris, with pain on palpation, TA, T1, T2, T3, T4, T5, T6, T7, T8, T9.?Dermatologic: ?VERRUCA:?Reveals Multiple ( 3), multi-loculated , mosaic, round, raised, flat-topped, petechial bleeding papulae(s), with cauliflower appearance and interrruption of skin lines, with pain to lateral compression, and size estimated at 5mm diameter, plantar Forefoot, B/L.? Assessment: * Assessment: 1.?Tinea unguium - B35.1 (Pr imary)???2.?Plantar wart - B07.0???3.?Pain in right toe(s) - M79.674???4.?Pain in left toe(s) - M79.675???5.?Pain in left foot - M79.672???6.?Pain in right foot - M79.671??? Plan: * Treatment: * Procedures:?Debride Nail 6-10:?Nail debridement?Due to the clinical pathology outlined in the exam findings, performance of this nail treatment is medically necessary as its management by an unskilled/untrained nonprofessional would put this patients foot and overall health at risk. Therefore, debridement to affected nail(s), as described in exam ( TA, T1, T2, T3, T4, T5, T6, T7, T8, T9, ), was performed exclusively by the physician of record to reduce/remove overall nail length, girth, thickness, subungual debris, and necrotic tissue, by manual and/or electrical means through the use of a nail nipper and/or dremel-type air grinder, to a more viable healthy nail plate or bed tissue 6- 10 nails in total. Silver nitrate was used for any petechial bleeding as necessary. Definitive antifungal treatment options, both pharmaceutical and surgical, have been reviewed and discussed with the patient. The patient solely prefers the use of intermittent/as needed professional debridement services for their nail condition and understands the need for additional periodic treatments to maintain effectiveness in symptomatic relief - 23988.?Wart Treatment:?Procedure?Verrucae(s) were debrided to pin-point bleeding margins with sterile surgical blade, silver nitrate chemocautery applied, recomm. immune-boosting meds such as zinc, recomm. follow up with topical chemosurgical agents, Pt defers any other forms of tx (88579).? * Procedure Codes:?40923 DEBRI DE NAIL, 6 OR MORE, Modifiers: XS 62229 Wart Destruction, 1-14, Modifiers: XS * Preventive Medicine:? ??Screening/Special Tests:?Fall Risk?Assessment:?Performed ?Screening:?No falls in the past year ?FALLS: Screening for Future Fall Risk?Have you had two or more falls in the past year??No * Follow Up:?2 Months * Images: * Sign off status: Completed true * Provider:?Annette Ortega DPM Date:?12/2024 Generated for Ganesh dalton/Jenny/eTifeomasmerlinda on:?11/04/2024 11:38 AM EST History and Physical Notes * HPI (History of Present Illness) Category Sub-Category Detail Notes Category Not es Painful Nails Pt States Last PCP Visit: Date:: 07/08/2024 Skin problems Pt States PCP Visit: DATE: 07/08/2024 Examination Category Sub-Category Detail Notes Category Not es Dermatologic VERRUCA: Reveals Multiple ( 3), multi-loculated , mosaic, round, raised, flat-topped, petechial bleeding papulae(s), with cauliflower appearance and interrruption of skin lines, with pain to lateral compression, and size estimated at 5mm diameter, plantar Forefoot, B/L Nails NAILS are: Elongated, overg rown, dystrophic, lytic, greater than 3mm thick, discolored and friable with crumbly malodorous subungual debris, with pain on palpation, TA, T1, T2, T3, T4, T5, T6, T7, T8, T9
--- OUTSIDE RECORDS SUMMARY | 2024-11-04 11:38 | XMS_ITS ---
Author Organization [facility] fausto [place] Address [address] [place] [address] Care Team Providers Care Wind Turbine Technician Name Role Phone Jaylin AUSTIN, Hernando Primary Care Provider Annette Magallanes Unavailable [phone] Allergies Allergen (clinical drug ingredient) Drug/Non Drug Allergy documented on EMR Reaction Allergy Type Onset Date Status Iodine Unknown Drug Allergy Active REASON FOR VISIT Pcp- 01/28, Painful nail(s) aggrevated by shoes causing difficulty standing/walking, Wart(s), Skin problem(s) Medications Medication SIG (Take, Route, Frequency, Duration) Notes Start Date End Date Status hydroCHLOROthiazide 12.5 MG 1 capsule in the morning Orally Once a day for 30 day(s) Not-Taking Medrol 4 MG as directed Orally 12/01/2019 Not-Taking Keflex 500 500 MG 1 capsule Orally every 12 hrs for 7 days 05/23/2021 Not-Taking Ritalin Not-Taking Medrol 4 MG as directed Orally 12/02/2019 Not-Taking Nortriptyline HCl 25 MG 1 capsule Orally Once a day for 30 day(s) Not-Taking Losartan Potassium 100 MG 1 tablet Orall y Once a day for 30 day(s) Not-Taking amLODIPine Besylate 10 MG 1 tablet Orall y Once a day Not-Taking Metoprolol Succinate 100 MG 1 capsule Or ally Once a day Active Alfuzosin HCl ER 10 MG 1 tablet immediat hanna after the same meal Orally Once a day for 30 day(s) Active amLODIPine Besylate 10 MG 1 tablet Orall y Once a day for 30 day(s) Active Nortriptyline HCl 25 MG 1 capsule Orally Once a day Active Losartan Potassium 100 MG 1 tablet Orally Active Atorvastatin Calcium 40 MG 1 tablet Oral ly Once a day Active LORazepam 1 MG 1 tablet at bedtime as needed Orally Once a day Active Metamucil Active Methylphenidate HCl 5 MG 1 tablet [...] Additional Findings: Tobacco Non-User Current no n-smoker Tobacco use other than smoking: Question Answer Notes Are you an other tobacco user? No Vital Signs Height 5 ft 10 in in 05/08/2024 Weight 160 lbs 05/08/2024 BMI 22.96 kg/m2 05/08/2024 Blood pressure systolic 120 mm Hg 05/08/20 24 Blood pressure diastolic 60 mm Hg 024 Encounters Encounter Location Date Provider Diagnosis [facility] [address] [address] 05/08/2024 Annette Ortega Plantar wart B07.0 ; Xerosis of skin L85.3 ; Tinea unguium B35.1 ; Pain in right toe(s) M79.674 ; Pain in left toe(s) M79.675 ; Pain in left foot M79.672 and Pain in right foot M79.671 Assessments Encounter Date Diagnosis (ICD Code) Assessment Notes Treatment Notes Treatment Clinical Notes Section Notes 05/08/2024 Plantar wart (ICD-10 - B07.0) 05/08/2024 Xerosis of skin (ICD-10 - L85.3) 05/08/2024 Tinea unguium (ICD-10 - B35.1) 05/08/2024 Pain in right toe(s) (ICD-10 - M79.674) 05/08/2024 Pain in left toe(s) (ICD-10 - M79.675) 05/08/2024 Pain in left foot (ICD-10 - M79.672) 05/08/2024 Pain in right foot (ICD-10 - M79.671) Plan Of Treatment Next Appt Details Follow Up: 2 Months, Reason: Provider Name:Annette joseph, 12/29/2024 11:00:00 AM, [address] [facility], [place], [address], Procedure Notes * Category Sub-Category Detail Notes Wart Treatment Procedure Verrucae(s) were debrided to pin-point bleeding margins with sterile surgical blade, silver nitrate chemocautery applied, recomm. immune-boosting meds such as zinc, recomm. follow up with topical chemosurgical agents, Pt defers any other forms of tx (66891) Debride Nail 6-10 Nail debridement Nail debridem ent performed extensively to reduce/remove overall nail length and girth, subungual debris, and necrotic tissue, by manual and electrical means with use of a nail nipper and/or dremel, to more viable healthy nail plate or bed tissue 6-10. Silver nitrate used for any petechial bleeding as necessary. Patient chooses, no pharmaceutical tx (74190) Progress Notes * Alexi OCONNELL PDOB: 0 (83 yo M)Acc No.[id number]:05/08/2024 Progress Note Patient:?Alexi Oconnell P Provider:?Annette Ortega DPM :1940???Age:83 Y???Sex:Male Hussein e:05/08/2024 Address:[address] [place] [address], [facility] Pcp:Hernando Mosqueda MD Subjective: * Chief Complaints: * ???Pcp- 01/28Painful nail(s) aggrevated by shoes causing difficulty standing/walkingWart(s)Skin problem(s) * HPI: ???Painful Nails:?Pt States Last PCP Visit:?Date:?01/21/2024 ???Skin problems:?Pt States PCP Visit: ?DATE?01/21/2024 ?Nature:?dryness , scaling.?Location:?B/L .?Duration:?several days.?Course:?worse.? * ROS:?General/Constitutional:?Nausea?denies, denies.?Vomiting?denies, denies.?Hunger Thirst?denies, denies.?Loss appetite?denies, denies.?Chills?denies, denies.?Fatigue?denies, denies.?Fever?denies, denies.?Night Sweats denies, denies.?Unexplained weight loss?denies, denies.?Unexplained weight gain?denies, denies.?HEENTM:?Dentures?admits, admits.?Dizziness?denies, denies.?Glasses/contacts?admits, admits.?Retinopathy?denies, denies.?Blurred/double vision?denies, denies.?TMJ?denies, denies.?Discharge/drainage?denies, denies.?Implants?denies, denies.?Sore throat?denies, denies.?Dental implants?denies, denies.?Hard of hearing ?denies, denies.?Difficulty chewing/swallowing/speaking?denies, denies.?Nose bleeds?denies, denies.?Sore mouth?denies, denies.?Respiratory:?On Oxygen?denies, denies.?Pneumonia/pleurisy?denies, denies.?Bronchitis?denies, denies.?Emphysema?denies, denies.?Coughing?denies, denies.?Cough blood?denies, denies.?Shortness of breath?denies, denies.?Wheezing?denies, denies.?Cardiovascular:?Pacemaker?denies, denies.?MVP?denies, denies.?WPW?denies, denies.?CHF?denies, denies.?Heart attack?denies, denies.?Septal defect?denies, denies.?Rapid beat?denies, denies.?Chest pain ?denies, denies.?Atrial Fib.?denies, denies.?Murmur/Palpitations?denies, denies.?Gastrointestinal:?Hemorrhoids?denies, denies.?Stomach/Abdominal pain?denies, denies.?Dark blood stool?denies, denies.?Irritable bowel ?denies, denies.?Constipation?denies, denies.?Diarrhea?denies, denies.?Hematology:?Swelling?denies, denies.?Clots?denies, denies.?Varicose Veins?denies, denies.?Bruising?denies, denies.?Bleeding problem?denies, denies.?Genitourinary:?Blood urine?denies, denies.?Frequent/Painfu/urination/bladder control?denies, denies.?Kidney stones?denies, denies.?Infection (UTI)?denies, denies.?Nephropathy?denies, denies.?sex trans dis (STD)?denies, denies.?Prostate?denies, denies.?Musculoskeletal:?Hammertoes?denies, denies.?Bunions?denies, denies.?Back Pain?denies, denies.?Muscle Cramps/ Resting?denies, denies.?Muscle cramps / walking?denies, denies.?Generalized aches and pains?admits, admits.?Weakness?denies, denies.?Integ.:?Cunningham?denies, denies.?Scars?denies, denies.?Corns/calluses?admits, admits.?Ingrown nails?denies, denies.?Painful nails?denies, denies.?Open Sores?denies, denies.?Rashes?denies, denies.?Neurologic:?Difficulty sleeping?denies, denies.?Brain disorder?denies, denies.?Numbness?denies, denies.?Balance trouble?denies, denies.?Confusion?denies, denies.?Fainting/blackouts?denies, denies.?Tingling?denies, denies.?Tremors?denies, denies.? * Medical History:? * Surgical History:?Bladder 20 12vascular surgery- lef leg 2012 * Hospitalization/Major Diagno stic Procedure:?Denies Past Hospitalization * Family History:?Mother: dece ased.?Father: .?Siblings: .? * Social History:?Tobacco Use:?Tobacco Use/Smoking?Are you a:?former smoker ?Additional Findings: Tobacco Non-User?Current non-smoker ?Tobacco use other than smoking?Are you an other tobacco user??No ???Miscellaneous:?no Caffeine, decaff , 1-2 cups per day. ?Children: yes. ?Exercise: yes, walking. ?Marital status: . ?Occupation: retired [employer]. * Medications:?TakingMetamucil amLODIPine Besylate 10 MG Tablet 1 tablet Orally Once a dayLosartan Potassium 100 MG Tablet 1 tablet Orally Nortriptyline HCl 25 MG Capsule 1 capsule Orally Once a dayLORazepam 1 MG Tablet 1 tablet at bedtime as needed Orally Once a dayAtorvastatin Calcium 40 MG Tablet 1 tablet Orally Once a dayAlfuzosin HCl ER 10 MG Tablet Extended Release 24 Hour 1 tablet immediately after the same meal Orally Once a dayMetoprolol Succinate 100 MG Capsule ER 24 Hour Sprinkle 1 capsule Orally Once a dayTaking Metamucil Taking amLODIPine Besylate 10 MG Tablet 1 tablet Orally Once a dayTaking Losartan Potassium 100 MG Tablet 1 tablet Orally Taking Nortriptyline HCl 25 MG Capsule 1 capsule Orally Once a dayTaking LORazepam 1 MG Tablet 1 tablet at bedtime as needed Orally Once a dayTaking Atorvastatin Calcium 40 MG Tablet 1 tablet Orally Once a dayTaking Alfuzosin HCl ER 10 MG Tablet Extended Release 24 Hour 1 tablet immediately after the same meal Orally Once a dayTaking Metoprolol Succinate 100 MG Capsule ER 24 Hour Sprinkle 1 capsule Orally Once a dayNot-Taking/PRNamLODIPine Besylate 10 MG Tablet 1 tablet Orally [...] List reviewed and reconciled with the patientNot-Taking/PRN amLODIPine Besylate 10 MG Tablet 1 tablet [...] 160, BMI: 22.96, Shoe size: 10-10.5, BP: 120/60 mm Hg, Wt-k.57 kg. * Examination: ???Nails: [...] diameter, plantar Forefoot, B/L.? Assessment: * Assessment: 1.?Plantar wart - B07.0?2.?X erosis of skin - L85.3 (Primary), Acute problem, Uncomplicated (3),Rx Management (4)?3.?Tinea unguium - B35.1?4.?Pain in right toe(s) - M79.674?5.?Pain in left [...] as necessary. Patient chooses, no pharmaceutical tx (77586).?Wart Treatment:?Procedure?Verrucae(s) were debrided to pin-point bleeding margins with sterile surgical blade, silver nitrate chemocautery applied, recomm. immune-boosting meds such as zinc, recomm. follow up with topical chemosurgical agents, Pt defers any other forms of tx (65453).? * Procedure Codes:?71950 DEBRI DE NAIL, 6 OR MORE, Modifiers: XS 58942 Wart Destruction, 1-14, Modifiers: XS * Preventive Medicine:? ??Counseling:?Discussion:?-13: Office or other outpatient visit for the evaluation and management of an established patient, which required a medically appropriate history and/or examination and LOW level of DECISION MAKING for: 1 STABLE ACUTE UNCOMPLICATED PROBLEM, 2 OR MORE MINOR PROBLEMS, OR 1 STABLE CHRONIC PROBLEM, THAT POSE(S) A LOW RISK FOR MORBIDITY/MORTALITY. The visit on the day of the encounter encompassed interpreting the data and educating the patient as to the nature of their condition, treatment options available according to their individual PMH, meds, allergies, and overall health/living conditions, as well as any potential risks or complications that may occur from a failure to adhere to, and participate in, the recommended course of therapy. The discussion included a complete verbal, and/or written explanation of the examination results, any x-rays taken, the proposed diagnosis, and outline of the treatment plan. A schedule for future care needs was also explained. The patient verbalized an understanding of the instructions at this time and agreed to be an active participant in their treatment. If the patient should think of any questions or concerns after the visit, I have encouraged the patient to call the office.?Xerosis:?The patient was counseled on the diagnosis, potential etiologies, and treatment options for their skin condition. We discussed the risks and benefits of each option from performing no treatment, to utilizing OTC topical skin creams/ointments, to utilizing prescription topical creams/ointments, to utilizing customized compounded topical medications and use of nocturnal occlusion with any/all previously detailed therapies. We discussed the advantages and disadvantages of each possible treatment and importance for adherence to all the recommended therapies for optimum success and avoid potential complications such as open sore/infection/possible hospitalization. We discussed the potential effectiveness of each topical preparation as well as each ones possible side effects and/or patient medication interactions. Patient questions re: use, dosage, successful outcomes, and application consistency were reviewed and the patient verbalized that all answers were clearly understood..? * Follow Up:?2 Months * Images: * Sign off status: Completed true * Provider:?Annette Ortega DPM Date:?11/2023 Generated for Ganesh dalton/Jenny/Chema on:?11/04/2024 11:38 AM EST History and Physical Notes * HPI (History of Present Illness) Category Sub-Category Detail Notes Category Not es Painful Nails Pt States Last PCP Visit: Date:: 01/21/2024 Skin problems Nature: dryness , scaling Location: B/L Duration: several days Course: worse Pt States PCP Visit: DATE: 01/21/2024 Examination Category Sub-Category Detail Notes Category Not [...]
--- OUTSIDE RECORDS SUMMARY | 2024-11-04 11:38 | XMS_ITS | Patient Health Record ---
Author Organization [facility] Earnest fausto [place] Address [address] [place] [address] Care Team Providers Care Gear Technician Name Role Phone Hernando Mosqueda MD Primary Care Provider Annette Magallanes Unavailable [phone] Allergies Allergen (clinical drug ingredient) Drug/Non Drug Allergy documented on EMR Reaction Allergy Type Onset Date Status Iodine Unknown Drug Allergy Active Reason For Referral No Information Medications Medication SIG (Take, Route, Frequency, Duration) Notes Start Date End Date Status amLODIPine Besylate 10 MG 1 tablet Orall y Once a day for 30 day(s) Active Ritalin Not-Taking Metamucil Active hydroCHLOROthiazide 12.5 MG 1 capsule in the morning Orally Once a day for 30 day(s) Not-Taking LORazepam 1 MG 1 tablet at bedtime as needed Orally Once a day Active Medrol 4 MG as directed Orally 12/01/2019 Not-Taking Losartan Potassium 100 MG 1 tablet Orally Active Keflex 500 500 MG 1 capsule Orally every 12 hrs for 7 days 05/23/2021 Not-Taking amLODIPine Besylate 10 MG 1 tablet Orall y Once a day Not-Taking Nortriptyline HCl 25 MG 1 capsule Orally Once a day Not-Taking Nortriptyline HCl 10 MG 1 capsule at bed time Orally Once a day Active Nortriptyline HCl 25 MG 1 capsule Orally Once a day for 30 day(s) Not-Taking Losartan Potassium 100 MG 1 tablet Orall y Once a day for 30 day(s) Not-Taking Atorvastatin Calcium 40 MG 1 tablet Oral ly Once a day Active Medrol 4 MG as directed Orally 12/02/2019 Not-Taking Metoprolol Succinate 100 MG 1 capsule Or ally Once a day Active Methylphenidate HCl 5 MG 1 tablet on an empty stomach Orally Twice a day Not-Taking Alfuzosin HCl ER 10 MG 1 tablet immediat hanna after the same meal Orally Once a day for 30 day(s) Active Paxil 10 MG 1 tablet in the morning Orally Once a day for 30 day(s) Not-Taking Immunizations Vaccine Route Administration Date Status Comme nts COVID-19 Pfizer BioNTech Vaccine Unknown 08/16/2021 Administered First Dose: 12/26/20 Second Dose: 01/16/2021 Social History Tobacco Use: Social History Observation [...] Are you an other tobacco user? 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) Active confirmed Vital Signs Blood pressure diastolic 66 mm Hg 10/09/2024 Height 5 ft 10 in in 10/09/2024 Blood pressure systolic 130 mm Hg 10/09/2024 Weight 160 lbs 10/09/2024 BMI 22.96 kg/m2 10/09/2024 Encounters Encounter Location Date [facility] [address] 12/13/[facility]23 Annette Perica Tinea unguium B35.1 ; Plantar wart B07.0 ; Pain in right toe(s) M79.674 ; Pain in left toe(s) M79.675 ; Pain in left foot M79.672 and Pain in right foot M79.[address] [facility] [address] 02/21/2024 Annette Perica Tinea unguium B35.1 ; Plantar wart B07.0 ; Pain in right toe(s) M79.674 ; Pain in left toe(s) M79.675 ; Pain in left foot M79.672 and Pain in right foot M79.[address] [address] 05/08/2024 Annette Perica Plantar wart B07.0 ; Xerosis of skin L85.3 ; Tinea unguium B35.1 ; Pain in right toe(s) M79.674 ; Pain in left toe(s) M79.675 ; Pain in left foot M79.672 and Pain in right foot M79.[address] [address] 07/22/2024 Annette Perica Xerosis of skin L85.3 ; Tinea unguium B35.1 ; Plantar wart B07.0 ; Pain in right toe(s) M79.674 ; Pain in left toe(s) M79.675 ; Pain in left foot M79.672 and Pain in right foot M79.[address] [address] 10/09/2024 Annette Perica Tinea unguium B35.1 ; Plantar wart B07.0 ; Pain in right toe(s) M79.674 ; Pain in left toe(s) M79.675 ; Pain in left foot M79.672 and Pain in right foot M79.671 Assessments Encounter Date Diagnosis (ICD Code) Assessment Notes Treatment Notes Treatment Clinical Notes Section Notes 12/13/2023 Tinea unguium (ICD-10 - B35.1) 02/21/2024 Tinea unguium (ICD-10 - B35.1) 05/08/2024 Xerosis of skin (ICD-10 - L85.3) 07/22/2024 Tinea unguium (ICD-10 - B35.1) 05/08/2024 Plantar wart (ICD-10 - B07.0) 07/22/2024 Xerosis of skin (ICD-10 - L85.3) 10/09/2024 Tinea unguium (ICD-10 - B35.1) 10/09/2024 Plantar wart (ICD-10 - B07.0) 10/09/2024 Pain in right toe(s) (ICD-10 - M79.674) 07/22/2024 Plantar wart (ICD-10 - B07.0) 02/21/2024 Plantar wart (ICD-10 - B07.0) 05/08/2024 Tinea unguium (ICD-10 - B35.1) 12/13/2023 Plantar wart (ICD-10 - B07.0) 12/13/2023 Pain in right toe(s) (ICD-10 - M79.674) 05/08/2024 Pain in right toe(s) (ICD-10 - M79.674) 02/21/2024 Pain in right toe(s) (ICD-10 - M79.674) 07/22/2024 Pain in right toe(s) (ICD-10 - M79.674) 10/09/2024 Pain in left toe(s) (ICD-10 - M79.675) 07/22/2024 Pain in left toe(s) (ICD-10 - M79.675) 02/21/2024 Pain in left toe(s) (ICD-10 - M79.675) 05/08/2024 Pain in left toe(s) (ICD-10 - M79.675) 12/13/2023 Pain in left toe(s) (ICD-10 - M79.675) 10/09/2024 Pain in left foot (ICD-10 - M79.672) 12/13/2023 Pain in left foot (ICD-10 - M79.672) 02/21/2024 Pain in left foot (ICD-10 - M79.672) 10/09/2024 Pain in right foot (ICD-10 - M79.671) 05/08/2024 Pain in left foot (ICD-10 - M79.672) 07/22/2024 Pain in left foot (ICD-10 - M79.672) 07/22/2024 Pain in right foot (ICD-10 - M79.671) 05/08/2024 Pain in right foot (ICD-10 - M79.671) 02/21/2024 Pain in right foot (ICD-10 - M79.671) 12/13/2023 Pain in right foot (ICD-10 - M79.671) Plan Of Treatment Pending Test Test Name Order Date *Uric Acid, Serum 12/01/2019 *CBC With Differential/Platelet 12/01/19 ESR 12/01/2019 Next Appt Details Provider Name:Annette Joseph Toñito joseph, 12/29/2024 11:00:00 AM, [address] [place] [address], [phone], Insurance Providers Payer Name Payer Address Payer Phone Subscriber Number Group Number Insured Name Patient Relationship to Insured Coverage Start Date Coverage End Date Medicare [facility] [address] [place] [address] [id number] Alexi Oconnell Self - patient is the insured [employer] [address] [place] [address] [id number] Alexi Oconnell Self - patient is the insured Medical (General) History Medical History History ICD Code Cancer Depression Gout Anxiety High blood pressure Kidney disease Vascular grafts Surgical History Surgery Date(Month/Year) Bladder 2012 vascular surgery- lef leg 2013
[2024-11-04 12:27] LABS: Alanine Aminotransferase 30 U/L (0-40); Albumin Level 4.3 g/dL (3.5-5.0); Alkaline Phosphatase 94 U/L (39-117); Anion Gap 11 (12-20); Aspartate Amino Transferase 29 U/L (5-37); Bilirubin Total 0.6 mg/dL (0.0-1.0); Blood Urea Nitrogen 17 mg/dL (9-16); Calcium 8.8 mg/dL (8.4-10.2); Carbon Dioxide 26 mmol/L (22-29); Chloride 106 mmol/L (96-108); Estimated Glomerular Filt Rate 49; Glucose Random 107 mg/dL (60-115); Potassium 4.2 mmol/L (3.3-5.1); Sodium 139 mmol/L (135-145); Total Protein 7.3 g/dL (6.5-8.0)
== END 2024-11-04 09:53 | disposition home or self-care (01) ==
LOC: HO.WFDLDS 09:52
PROVIDERS: Visit Provider Family Medicine
DX: E11.22 Type 2 diabetes mellitus with diabetic chronic kidney disease (principal); I12.9 Hypertensive chronic kidney disease with stage 1 through stage 4 chronic kidney disease, or unspecified chronic kidney disease; N18.9 Chronic kidney disease, unspecified; Z79.899 Other long term (current) drug therapy; Z00.00 Encounter for general adult medical examination without abnormal findings; R79.89 Other specified abnormal findings of blood chemistry
CPT/HCPCS: 36415; 80053; 83036; 99212

== ENCOUNTER 2024-11-04 10:13 | Outpatient (AMB) | payer MEDICARE, SELFPAY ==
--- NOTE | 2024-11-04 10:25 | A.OFFPC_ITS ---
Vital Signs 11/04/24 10:35 Height 5 ft 10 in Weight 183 lb BMI 26.3 BP 120/70 Blood Pressure Location Rt brachial Position Sitting Respiration 16 Pulse 64 Pulse Source Pulse Oximeter Temp 97.8 F Temp Source Oral Pulse Oximetry (%) 93 Oxygen Delivery Method Room Air Intake Visit Reasons: f/u hypertension, diabetes Intake Note: F/U for HTN pre-dm Allergies lisinopril [LISINOPRIL] Allergy (Intermediate, Verified 11/04/24 10:32) ANGIOEDEMA Iodinated Contrast Media [IV CONTRAST] Allergy (Unknown, Verified 11/04/24 10:32) SWELLING orange juice [ORANGE JUICE] Allergy (Unknown, Verified 11/04/24 10:32) BPH/KIDNEY PROBLEM Tobacco use date assessed: 03/19/24 Dental Screening Dental Screen Date: 03/19/24 HPI f/u hypertension, diabetes HPI Details 83 y/o male presents to f/u hypertension , diabetes. Blood pressure today 120/70, 64p. He is on metoprolol 150mg, losartan 100mg, amlodipine 10mg daily. A1c today 5.6%. Diet controlled diabetes. HPI Comments History of Present Illness Details Documentation assistance for Hernando Mosqueda MD, was provided by Amilcar Yan, Medicare Sales Representative on 11/04/2024 at 10:52 AM EST. I, Dr. Mosqueda, have read, observed, and verified documentation. [facility] Medical History Peripheral vascular disease Diet-controlled diabetes mellitus Essential hypertension HTN (hypertension) Surgical History History of surgery History of tonsillectomy History of bladder surgery Family History Father HTN (hypertension) Lung cancer Mother HTN (hypertension) Sister Mental health disorder Sister Anxiety Son No problems noted. Son No problems noted. Daughter No problems noted. Daughter No problems noted. Social History [facility] Tobacco Use Status: Former Tobacco user Years Smoked: 25 years e-Cigarette/Vaping Use: Never Used Second Hand Smoke Exposure: No service: Yes Current occupational status: retired Current occupational exposures/hazards: No Hearing needs: Yes Questionnaire Thrive Questionnaire Date Thrive assessed: 09/04/21 MAGNUS-7 AMB Questionnaire MAGNUS-7 Date MAGNUS - 7 assessed: 10/16/21 Source: Developed by Drs. Cameron Pimentel, Giovana Hendrix, Tim Wong and colleagues, with an educational monika from [employer]. Review of Systems Const Denies chills, Denies fatigue, Denies fever(s), Denies headache(s) and Denies weakness ENT Denies dizziness and Denies headache(s) Card Denies dyspnea Resp Denies cough, Denies dyspnea, Denies wheezing and Denies other (shortness of breath) Musc Denies numbness and Denies tingling Neuro Denies dizziness, Denies headache(s), Denies numbness, Denies tingling and Denies weakness Psych Denies anxiety and Denies depression Endo Denies fatigue Aller/Immun Denies wheezing Physical exam (Primary Care) Vital Signs: Last Vital Signs Temp 97.8 F 11/04/24 10:35 Pulse 64 11/04/24 10:35 Resp 16 11/04/24 10:35 BP 120/70 11/04/24 10:35 Pulse Ox 93 11/04/24 10:35 Oxygen Delivery Method Room Air 11/04/24 10:35 BMI result Body Mass Index 26.3 Tobacco/Smoking Status: Tobacco use Status Tobacco use date assessed 03/19/24 11/04/24 10:26 Patient Tobacco Use Status Former Tobacco user 11/04/24 10:26 e-Cigarette/Vaping Use Never Used 11/04/24 10:26 Thrive Assessment: Date of Thrive Assessment Date Thrive assessed 09/04/21 11/04/24 10:26 Const General: well developed; No acute distress Nutritional Appearance: well nourished Orientation/consciousness: patient oriented x3 [facility] Head: Yes normocephalic and Yes atraumatic Eyes General: appearance normal, both eyes and all related structures Pupils: Equal, round and reactive pupils present EOM: EOMs intact bilaterally Resp Effort & Inspection: normal respiratory effort Auscultation: clear to auscultation bilaterally Cardio Rate: regular rate Rhythm: regular rhythm Heart sounds: S1 normal heart sound present, S2 normal heart sound present, no gallops, no murmurs and no rubs Neuro General: patient oriented x3 and gait normal Cranial nerves: Yes Equal, round and reactive pupils present Psych Affect: normal affect Coding Level of Care Code Est Pt Level 4 (43318) Diagnoses Essential hypertension I10 Diet-controlled diabetes mellitus E11.9 CRF (chronic renal failure) N18.9 Assessment & Plan Assessment & Plan (1) Essential hypertension: Code(s): I10 - Essential (primary) hypertension Category: Medical Plan: Blood?pressure?is?well?controlled.??Goal?is?less?than?140/90 Continue?current?medications. (2) Diet-controlled diabetes mellitus: Code(s): E11.9 - Type 2 diabetes mellitus without complications Category: Medical Plan: A1c?5.6%?is?good?control.??Goal?is?less?than?7.0% Continue?diet?control?including?lower?sugar?and?start?intake,?weight?control?and ?exercise. (3) CRF (chronic renal failure): Code(s): N18.9 - Chronic kidney disease, unspecified Category: Medical Plan: He?is?followed?by? Had?decreased?losartan?due?to?rising?creatinine?level Blood?pressure?remains?well?controlled.??Following?up?on?creatinine?levels?with? labs?today. Follow-up?with??as?recommended
[2024-11-04 10:35] VITALS: BP 120/70; PULSE 64; RESP 16; TEMP 36.6; O2SAT 93; BMI 26.3
--- OUTSIDE RECORDS SUMMARY | 2024-11-04 12:11 | XMS_ITS | Clinical Summary ---
Author Organization [facility] Facility Address [address] [address] Care Team Providers Care Tow Car Driver Name Role Phone Hernando Mosqueda MD Primary [...] Visit [facility] [address] [place] [address] [place] [address] Claus Winkler MD [address] [facility] [address] [place] [address] Health Maintenance Due Date Last [...] age to complete this topic Insurance MEDICARE [facility] MEDICARE [facility] Care Teams Tow Car Driver Relationship Specialty Start Date End Date Hernando Mosqueda MD [address] [address] PCP - General 10/17/20
== END 2024-11-04 11:00 | disposition home or self-care (01) ==
LOC: HO.HMCFM 10:13
PROVIDERS: PCP Family Medicine; Visit Provider Family Medicine
DX: E11.9 Type 2 diabetes mellitus without complications (principal)

== ENCOUNTER 2025-02-02 10:21 | Outpatient (REF) | payer MEDICARE, SELFPAY ==
--- OUTSIDE RECORDS SUMMARY | 2025-02-02 11:52 | XMS_ITS ---
Author Organization [facility] Address [address] [place] [address] Care Team Providers Care Rack Pusher Name Role Phone Hernando Mosqueda MD Primary Care Provider Annette Magallanes [phone] REASON FOR VISIT Same day cx- sick Encounters Encounter Location Date Provider Diagnosis [address] [address] 12/29/2024 Annette Ortega Plan Of Treatment Next Appt Details Provider Name:Annette joseph, 02/02/2025 02:00:00 PM, [address] [place], [address], Progress Notes * Alexi OCONNELL PDOB: [birth year] (84 yo M)Acc No.[id number]:12/29/2024 Patient:?Alexi OCONNELL :1940???Age:84 Y???Sex:Male Address:[address] [place] [address], [address], [place], [address] * true * Date:? Generated for Aylini krystle/Jenny/eTransmitting on:?02/02/2025 11:51 AM EDT
--- OUTSIDE RECORDS SUMMARY | 2025-02-02 11:52 | XMS_ITS | Clinical Summary ---
Author Organization [facility] Facility Address [address] [address] Care Team Providers Care Integration Software Engineer Name Role Phone Hernando Mosqueda MD Primary [...] Malignant neoplasm of urinary bladder 06/01/2021 Immunizations Immunization Administration Dates Next Due Pneumococcal Polysaccharide 04/07/2013 [...] Visit [facility] [address] [address] [place] [address] Claus Winkler MD [address] [facility] [address] [place] [address] Health Maintenance Due Date Last Done Comments Pneumococcal Vaccine: 50+ Ye ars (2 of 2 - PCV) 04/07/2014 04/07/2013 Diabetes: Hemoglobin A1C 05/31/2022 Diabetes: Ophthalmology Exam 05/31/2022 Diabetes: Pedal Pulse Checked 05/31/2022 Diabetes: Sensory Foot Exam 05/31/2022 Diabetes: Visual Foot Exam 05/31/2022 Influenza Vaccine (Season Ended) 2025 Pneumococcal Vaccine: Peds ( 0 to 5 Years) and At-Risk Patients (6 to 49 Years) Discontinued 04/07/2013 Hepatitis B Vaccine Aged Out No longe r eligible based on patient's age to complete this topic Insurance Medicare [facility] Medicare [facility] Care Teams Integration Software Engineer Relationship Specialty Start Date End Date Hernando Mosqueda MD [address] [phone] PCP - General 10/17/20
--- OUTSIDE RECORDS SUMMARY | 2025-02-02 11:52 | XMS_ITS ---
Author Organization [facility] Earnest fausto Russell Address [address] [facility] [place] [address] Care Team Providers Care Television Production Clerk Name Role Phone Jaylin AUSTIN, Hernando Primary Care Provider Annette Magallanes Unavailable [phone] Medications Medication SIG (Take, Route, Frequency, Duration) Notes Start Date End Date Status Medrol 4 MG as directed Orally 12/01/2019 Not-Taking Keflex 500 500 MG 1 capsule Orally every 12 hrs for 7 days 05/23/2021 Not-Taking Methylphenidate HCl 5 MG 1 tablet on an empty stomach Orally Twice a day Not-Taking Paxil 10 MG 1 tablet in the morning Orally Once a day for 30 day(s) Not-Taking Medrol 4 MG as directed Orally 12/02/2019 Not-Taking Ritalin Not-Taking hydroCHLOROthiazide 12.5 MG 1 capsule in the morning Orally Once a day for 30 day(s) Not-Taking Nortriptyline HCl 25 MG 1 capsule Orally Once a day for 30 day(s) Not-Taking Losartan Potassium 100 MG 1 tablet Orall y Once a day for 30 day(s) Not-Taking amLODIPine Besylate 10 MG 1 tablet Orall y Once a day Not-Taking LORazepam 1 MG 1 tablet at [...] tablet Oral ly Once a day Active Losartan Potassium 100 MG 1 tablet Orally Active amLODIPine Besylate 10 MG 1 tablet Orall y Once a day for 30 day(s) Active Metamucil Active Nortriptyline HCl 10 MG 1 capsule at bed time Orally Once a day Active Encounters Encounter Location Date Provider Diagnosis [facility] [place] [address] [place] [address] 02/02/2025 Annette Ortega Plan Of Treatment Next Appt Details Provider Name:Annette joseph, 02/02/2025 02:00:00 PM, [address] [place] [address], [address], Progress Notes * JOHN Alexi PDOB: 0 (84 yo M)Acc No.[id number]:02/02/2025 Progress Note Patient:?Alexi OCONNELL P Provider:?Annette Ortega DPM :1940???Age:84 Y???Sex:Male Hussein e:02/02/2025 Address:[address] [place], [place] [id number] Pcp:Hernando Mosqueda MD Subjective: * Chief Complaints: * ??? * HPI: ???Painful Nails:?Pt States Last PCP Visit:?Date:?07/08/2024 * Medical History:? * Medications:?Taking Nortript yline HCl 10 MG Capsule 1 capsule at bedtime Orally Once a day , Taking Metamucil , Taking amLODIPine Besylate 10 MG Tablet 1 tablet Orally Once a day , Taking Losartan Potassium 100 MG Tablet 1 tablet Orally , Taking LORazepam 1 MG Tablet 1 tablet at bedtime as needed Orally Once a day , Taking Atorvastatin Calcium 40 MG Tablet 1 tablet Orally Once a day , Taking Alfuzosin HCl ER 10 MG Tablet Extended Release 24 Hour 1 tablet immediately after the same meal Orally Once a day , Taking Metoprolol Succinate 100 MG Capsule ER 24 Hour Sprinkle 1 capsule Orally Once a day , Not-Taking/PRN Nortriptyline HCl 25 MG Capsule 1 capsule Orally Once a day , Not-Taking/PRN amLODIPine Besylate 10 MG Tablet 1 tablet Orally Once a day , Not-Taking/PRN Losartan Potassium 100 MG Tablet 1 tablet Orally Once a day , Not-Taking/PRN Nortriptyline HCl 25 MG Capsule 1 capsule Orally Once a day , Not-Taking/PRN hydroCHLOROthiazide 12.5 MG Capsule 1 capsule in the morning Orally Once a day , Not-Taking/PRN Ritalin , Not-Taking/PRN Keflex 500 500 MG Capsule 1 capsule Orally every 12 hrs , Not-Taking/PRN Medrol 4 MG Tablet Therapy Pack as directed Orally , Not-Taking/PRN Medrol 4 MG Tablet Therapy Pack as directed Orally , Not-Taking/PRN Paxil 10 MG Tablet 1 tablet in the morning Orally Once a day , Not-Taking/PRN Methylphenidate HCl 5 MG Tablet 1 tablet on an empty stomach Orally Twice a day Objective: * Vitals:? Assessment: Plan: * Treatment: * Images: * The named appointment provid er may or may not be the originator of this progress note, and it is not deemed complete until electronically signed by the appointment provider. Sign off status: Pending * Provider:?Annette Orteag DPM Date:? Generated for Ganesh dalton/Jenny/Evelynitting on:?02/02/2025 11:52 AM EDT History and Physical Notes * HPI (History of Present Illness) Category Sub-Category Detail Notes Category Not es Painful Nails Pt States Last PCP Visit: Date:: 07/08/2024
--- OUTSIDE RECORDS SUMMARY | 2025-02-02 11:52 | XMS_ITS | Patient Health Record ---
Author Organization [facility] Earnest fausto [place] Address [address] [place] [address] Care Team Providers Care Power Hair Clipper Name Role Phone Hernando Mosqueda MD Primary Care Provider nAnette Magallanes Unavailable [phone] Allergies Allergen (clinical drug ingredient) Drug/Non Drug Allergy documented on EMR Reaction Allergy Type Onset Date Status Iodine Unknown Drug Allergy Active Reason For Referral No Information Medications Medication SIG (Take, Route, Frequency, Duration) Notes Start Date End Date Status LORazepam 1 MG 1 tablet at bedtime as needed Orally Once a day Active Medrol 4 MG as directed Orally 12/01/2019 Not-Taking Keflex 500 500 MG 1 capsule Orally every 12 hrs for 7 days 05/23/2021 Not-Taking Metamucil Active hydroCHLOROthiazide 12.5 MG 1 capsule in the morning Orally Once a day for 30 day(s) Not-Taking Nortriptyline HCl 10 MG 1 capsule [...] 4 MG as directed Orally 12/02/2019 Not-Taking Losartan Potassium 100 MG 1 tablet Orally Active amLODIPine Besylate 10 MG 1 tablet Orall y Once a day for 30 day(s) Active Ritalin Not-Taking Immunizations Vaccine Route Administration Date Status [...] Problem Status W/U Status Risk Notes Problem [id number] Plantar wart (B07.0) Active confirmed Problem [id number] 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) Active confirmed Vital Signs Blood pressure diastolic 66 mm Hg 10/09/2024 Height 5 ft 10 in in 10/09/2024 Blood pressure systolic 130 mm Hg 10/09/2024 Weight 160 lbs 10/09/2024 BMI 22.96 kg/m2 10/09/2024 Encounters Encounter [facility] [address] [facility]/21/[facility]24 Annette Perica Tinea unguium B35.1 ; Plantar wart B07.0 ; Pain in right toe(s) M79.674 ; Pain in left toe(s) M79.675 ; Pain in left foot M79.672 and Pain in right foot M79.671 [facility] [address] 05/08/2024 Annette Perica Plantar wart B07.0 ; Xerosis of skin L85.3 ; Tinea unguium B35.1 ; Pain in right toe(s) M79.674 ; Pain in left toe(s) M79.675 ; Pain in left foot M79.672 and Pain in right foot M79.[address] [address] 07/22/2024 Annette Ortega Xerosis of skin L85.3 ; Tinea unguium B35.1 ; Plantar wart B07.0 ; Pain in right toe(s) M79.674 ; Pain in left toe(s) M79.675 ; Pain in left foot M79.672 and Pain in right foot M79.[address] [address] 10/09/2024 Annette Ortega Tinea unguium B35.1 ; Plantar wart B07.0 ; Pain in right toe(s) M79.674 ; Pain in left toe(s) M79.675 ; Pain in left foot M79.672 and Pain in right foot M79.[address] [address] 12/29/2024 Annette Ortega Assessments Encounter Date Diagnosis (ICD Code) Assessment Notes Treatment Notes Treatment Clinical Notes Section Notes 02/21/2024 Tinea unguium (ICD-10 - B35.1) 05/08/2024 [...] B07.0) 05/08/2024 Tinea unguium (ICD-10 - B35.1) 05/08/2024 [...] Acid, Serum 12/01/2019 *CBC With Differential/Platelet 12/01/19 20 ESR 12/01/2019 Next Appt Details Provider Name:Annette joseph, 02/02/2025 02:00:00 PM, [address] [facility], [place], [address], Insurance Providers Payer Name Payer Address Payer Phone Subscriber Number Group Number Insured Name Patient Relationship to Insured Coverage Start Date Coverage End Date Medicare [facility] [address] [place] [address] [id number] Alexi Oconnell Self - patient is the insured [employer] [address] [place] [address] [id number] Alexi Oconnell Self - patient is the insured Medical (General) History Medical History History ICD Code Cancer Depression Gout Anxiety High blood pressure Kidney disease Vascular grafts Surgical History Surgery Date(Month/Year) Bladder 2012 vascular surgery- lef leg 2013
--- OUTSIDE RECORDS SUMMARY | 2025-02-02 11:52 | XMS_ITS ---
Author Organization [facility] Address [address] [place] [address] Care Team Providers Care Tank Systems Maintainer Name Role Phone Jaylin AUSTIN, Hernando Primary Care Provider Annette Magallanes [phone] Encounters Encounter Location Date Provider Diagnosis [address] [address] 12/29/2024 Annette Ortega Plan Of Treatment Next Appt Details Provider Name:Annette joseph, 02/02/2025 02:00:00 PM, [address] [place], [address], Progress Notes * Alexi OCONNELL PDOB: 0 (84 yo M)Acc No.[id number]:12/29/2024 Progress Note Patient:?Alexi OCONNELL Provider:?Annette Ortega DPM :1940???Age:84 Y???Sex:Male Hussein e:12/29/2024 Address:[address] [place] [address], [address], [place], [place] Pcp:Hernando Mosqueda MD Subjective: * Chief Complaints: * ??? * Medical History:? Objective: * Vitals:? Assessment: Plan: * Treatment: * Images: * The named appointment provid er may or may not be the originator of this progress note, and it is not deemed complete until electronically signed by the appointment provider. Sign off status: Pending * Provider:?Annette Ortega DPM Date:? Generated for Ganesh dalton/Jenny/Chema on:?02/02/2025 11:51 AM EDT
[2025-02-02 14:27] LABS: Appearance Urine Clear; Color Urine Yellow; Glucose Urine UA Negative (Negative); Leukocyte Esterase Urine Negative (Negative); Nitrite Urine Negative (Negative); Specific Gravity - Urine 1.015 (1.005-1.025); Urine Blood Negative (Negative); Urine Ketones Negative (Negative); Urine Protein Negative (Neg-Trace)
[2025-02-02 14:40] LABS: Anion Gap 14 (12-20); Blood Urea Nitrogen 18 mg/dL (9-16); Calcium 9.2 mg/dL (8.4-10.2); Carbon Dioxide 25 mmol/L (22-29); Chloride 107 mmol/L (96-108); Estimated Glomerular Filt Rate 45; Glucose Random 121 mg/dL (60-115); Sodium 142 mmol/L (135-145)
[2025-02-02 14:57] LABS: Creatinine Urine 93.83 mg/dL; Microalbum/Creatinine Ratio Ur 11.7 ug/mg cr (<30)
== END 2025-02-02 10:22 | disposition home or self-care (01) ==
LOC: HO.WFDLDS 10:21
PROVIDERS: Visit Provider Family Medicine
DX: Z00.00 Encounter for general adult medical examination without abnormal findings (principal); I10 Essential (primary) hypertension; R79.89 Other specified abnormal findings of blood chemistry
CPT/HCPCS: 36415; 80048; 81003; 82043; 82570

== ENCOUNTER 2025-02-03 11:21 | Outpatient (AMB) | payer MEDICARE, SELFPAY ==
--- NOTE | 2025-02-03 12:01 | MHC.PC.OV ---
Vital Signs 02/03/25 12:07 Height 5 ft 10 in Weight 186 lb 6 oz BMI 26.7 BP 118/60 Blood Pressure Location Lt brachial Position Sitting Respiration 14 Pulse 52 Pulse Source Pulse Oximeter Temp 97.6 F Temp Source Oral Pulse Oximetry (%) 96 Oxygen Delivery Method Room Air Intake Visit Reasons: f/u diabetes, HTN Allergies lisinopril [LISINOPRIL] Allergy (Intermediate, Verified 02/03/25 12:10) ANGIOEDEMA Iodinated Contrast Media [IV CONTRAST] Allergy (Unknown, Verified 02/03/25 12:10) SWELLING orange juice [ORANGE JUICE] Allergy (Unknown, Verified 02/03/25 12:10) BPH/KIDNEY PROBLEM Medication List - Last Reconciled 02/03/25 by Hernando Mosqueda MD alfuzosin ER 10 mg PO BEDTIME amlodipine 10 mg PO DAILY 90 days atorvastatin 40 mg PO DAILY comp.stocking,knee,long,medium Daily As directed. 10-20 mm Hg. 99 days lorazepam 1 mg PO TID losartan 100 mg PO DAILY metoprolol succinate ER 150 mg (1.5 x 100 mg) PO DAILY 90 days nortriptyline 25 mg PO DAILY nortriptyline 10 mg PO BEDTIME Tobacco use date assessed: 03/19/24 Dental Screening Dental Screen Date: 03/19/24 HPI f/u diabetes, HTN HPI Details 84 y/o male presents to f/u diet controlled diabetes, HTN, CRF. Labs drawn 02/02/25. Creatinine levels 1.48 mg/dL. Blood pressure today 118/60, 52p. [facility] Medical History Peripheral vascular disease Diet-controlled diabetes mellitus Essential hypertension HTN (hypertension) Surgical History History of surgery History of tonsillectomy History of bladder surgery Family History Father HTN (hypertension) Lung cancer Mother HTN (hypertension) Sister Mental health disorder Sister Anxiety Son No problems noted. Son No problems noted. Daughter No problems noted. Daughter No problems noted. Social History Housing: Condominium Patient Tobacco Use Status: Former Tobacco user Years Smoked: 25 years e-Cigarette/Vaping Use: Never Used Second Hand Smoke Exposure: No service: Yes Current occupational status: retired Current occupational exposures/hazards: No Hearing needs: Yes Questionnaire PHQ-9 Over the last 2 weeks, how often have you been bothered by any of the following problems? 1. Little interest or pleasure in doing things: not at all 2. Feeling down, depressed, or hopeless: not at all 3. Trouble falling or staying asleep, or sleeping too much: not at all 4. Feeling tired or having little energy: not at all 5. Poor appetite or overeating: not at all 6. Feeling bad about yourself - or that you are a failure or have let yourself or your family down: not at all 7. Trouble concentrating on things, such as reading the newspaper or watching television: not at all 8. Moving or speaking so slowly that other people could have noticed. Or the opposite - being so fidgety or restless that you have been moving around a lot more than usual: not at all 9. Thoughts that you would be better off or of hurting yourself in some way: not at all Total score: 0 Source: Developed by Drs. Cameron Pimentel, Giovana Hendrix, Tim Wong and colleagues, with an educational monika from [employer] Thrive Questionnaire Date Thrive assessed: 02/03/25 I am a: Patient What is your living situation today?: I have a steady place to live Within the past 12 months, did the food you bought not last and you didn't have the money to get more?: Never true Within the past 12 months, did you worry whether your food would run out before you got money to buy more?: Never true Do you have trouble paying for medicines?: No Do you have trouble getting transportation to medical appointments?: No Do you have trouble paying your heating and electricity bill?: No Do you have trouble taking care of your child, family member or friend?: No Do you have trouble with day-to-day activities such as bathing, preparing meals, shopping, managing finances, etc.?: No Are you currently unemployed and looking for a job?: No Are you interested in more education?: No Please select the resources that you would like help with: None Currently or been in a relationship where the following occur: No concerns reported THRIVE Score: 0 AUDIT C Alcohol Use Questionnaire (AUDIT-C) 1. How often do you have a drink containing alcohol?: Never Total Score: 0 MAGNUS-7 AMB Questionnaire MAGNUS-7 Date MAGNUS - 7 assessed: 10/16/21 Feeling nervous, anxious, or on edge: 0 = Not at all Not being able to stop or control worryin = Not at all Worrying too much about different things: 0 = Not at all Trouble relaxin = Not at all Being so restless that it is hard to sit still: 0 = Not at all Becoming easily annoyed or irritable: 0 = Not at all Feeling afraid as if something awful might happen: 0 = Not at all Total MAGNUS-7 score (0-4 normal; 5-9 mild; 10-14 moderate; 15-21 severe): 0 Source: Developed by Drs. Cameron Pimentel, Giovana Hendrix, Tim Wong and colleagues, with an educational monika from [employer] Review of Systems Const Denies chills, Denies fatigue, Denies fever(s), Denies headache(s) and Denies weakness ENT Denies dizziness and Denies headache(s) Card Denies dyspnea Resp Denies cough, Denies dyspnea, Denies wheezing and Denies other (shortness of breath) Musc Denies numbness and Denies tingling Neuro Denies dizziness, Denies headache(s), Denies numbness, Denies tingling and Denies weakness Psych Denies anxiety and Denies depression Endo Denies fatigue Aller/Immun Denies wheezing Physical exam (Primary Care) Vital Signs: Last Vital Signs Temp 97.6 F 02/03/25 12:07 Pulse 52 02/03/25 12:07 Resp 14 02/03/25 12:07 BP 118/60 02/03/25 12:07 Pulse Ox 96 02/03/25 12:07 Oxygen Delivery Method Room Air 02/03/25 12:07 BMI result Body Mass Index 26.7 Tobacco/Smoking Status: Tobacco use Status Tobacco use date assessed 03/19/24 02/03/25 12:02 Patient Tobacco Use Status Former Tobacco user 02/03/25 12:02 e-Cigarette/Vaping Use Never Used 02/03/25 12:02 PHQ-9: PHQ-9 Score PHQ-9: Total score 0 02/03/25 12:43 Thrive Assessment: Date of Thrive Assessment Date Thrive assessed 02/03/25 02/03/25 12:10 Currently or been in a relationship where the following occur: No concerns reported Const General: well developed; No acute distress Nutritional Appearance: well nourished Orientation/consciousness: patient oriented x3 HENMT Head: Yes normocephalic and Yes atraumatic Eyes General: appearance normal, both eyes and all related structures Pupils: Equal, round and reactive pupils present EOM: EOMs intact bilaterally Resp Effort & Inspection: normal respiratory effort Auscultation: clear to auscultation bilaterally Cardio Rate: regular rate Rhythm: regular rhythm Heart sounds: S1 normal heart sound present, S2 normal heart sound present, no gallops, no murmurs and no rubs Neuro General: patient oriented x3 and gait normal Cranial nerves: Yes Equal, round and reactive pupils present Psych Affect: normal affect Coding Level of Care Code Est Pt Level 4 (91823) Diagnoses Essential hypertension I10 CRF (chronic renal failure) N18.9 Diet-controlled diabetes mellitus E11.9 Assessment & Plan Assessment & Plan (1) Essential hypertension: Code(s): I10 - Essential (primary) hypertension Category: Medical Plan: Blood?pressure?is?well?controlled.??Goal?is?less?than?130/90 Continue?current?medication (2) CRF (chronic renal failure): Code(s): N18.9 - Chronic kidney disease, unspecified Category: Medical Plan: Watching?patient's?creatinine?level?which?was?within?normal?range?at?prior?Check?but?more?recently?is?slightly?elevated?at?1.48 Continue?good?hydration No?change?to?blood?pressure?medications?today Will?continue?monitor (3) Diet-controlled diabetes mellitus: Code(s): E11.9 - Type 2 diabetes mellitus without complications Category: Medical Plan: A1c?6.1%. Good?control.??Continue?diet?low?in?sugars?and?starches Continue?exercise?as?tolerated
[2025-02-03 12:07] VITALS: BP 118/60; PULSE 52; RESP 14; TEMP 36.4; O2SAT 96; BMI 26.7
--- OUTSIDE RECORDS SUMMARY | 2025-02-03 12:59 | XMS_ITS ---
Author Organization [facility] Address [address] [place] [address] Care Team Providers Care Room Manager Name Role Phone Jaylin AUSTIN, Hernando Primary Care Provider Annette Magallanes [phone] Encounters Encounter Location Date Provider Diagnosis [address] [address] 12/29/2024 Annette Ortega Plan Of Treatment Next Appt Details Provider Name:Annette joseph, 04/16/2025 12:15:00 PM, [address] [place], [address], Progress Notes * Alexi OCONNELL PDOB: [birth year] (84 yo M)Acc No.[id number]:12/29/2024 Progress Note Patient:?Alexi OCONNELL Provider:?Annette Ortega DPM :1940???Age:84 Y???Sex:Male Hussein e:12/29/2024 Address:[address] [place] [address], [address], [place], [place] Pcp:eHrnando Mosqueda MD Subjective: * Chief Complaints: * ??? * Medical History:? Objective: * Vitals:? Assessment: Plan: * Treatment: * Images: * The named appointment provid er may or may not be the originator of this progress note, and it is not deemed complete until electronically signed by the appointment provider. Sign off status: Pending * Provider:?Annette Ortega DPM Date:? Generated for Ganesh dalton/Jenny/Chema on:?02/03/2025 12:59 PM EDT
--- OUTSIDE RECORDS SUMMARY | 2025-02-03 12:59 | XMS_ITS ---
Author Organization [facility] Address [address] [place] [address] Care Team Providers Care Dry Cleaner Apprentice Name Role Phone Hernando Mosqueda MD Primary Care Provider Annette Magallanes [phone] REASON FOR VISIT Same day cx- sick Encounters Encounter Location Date Provider Diagnosis [address] [address] 12/29/2024 Annette Ortega Plan Of Treatment Next Appt Details Provider Name:Annette joseph, 04/16/2025 12:15:00 PM, [address] [place] [address], [address], Progress Notes * Alexi OCONNELL PDOB: 0 (84 yo M)Acc No.[id number]:12/29/2024 Patient:?Alexi OCONNELL :1940???Age:84 Y???Sex:Male Address:[address] [place] [address], [address], [place], [address] * true * Date:? Generated for Aylini krystle/Jenny/eTransmitting on:?02/03/2025 12:59 PM EDT
--- OUTSIDE RECORDS SUMMARY | 2025-02-03 12:59 | XMS_ITS | Clinical Summary ---
Author Organization [facility] Facility Address [address] [address] Care Team Providers Care Soil Tester Name Role Phone Hernando Mosqueda MD Primary Care Provider [phone] Allergies Active Allergy Reactions Criticality Noted Date [...] Visit [facility] [address] [place] [address] Claus Winkler MD [address] [facility] [address] [place] [address] Health Maintenance Due Date Last [...] age to complete this topic Insurance Medicare [facility] Medicare [facility] Care Teams Soil Tester Relationship Specialty Start Date End Date Hernando Mosqueda MD [address] [phone] PCP - General 10/17/20
--- OUTSIDE RECORDS SUMMARY | 2025-02-03 12:59 | XMS_ITS | Patient Health Record ---
Author Organization [facility] Earnest fausto Mccune Address [address] [place] [address] Care Team Providers Care Manufacturing Engineer Chief Name Role Phone Hernando Mosqueda MD Primary Care Provider Annette Magallanes Unavailable [phone] Allergies Allergen (clinical drug ingredient) Drug/Non Drug Allergy documented on EMR Reaction Allergy Type Onset Date Status Iodine Unknown Drug Allergy Active Reason For Referral No Information Medications Medication SIG (Take, Route, Frequency, Duration) Notes Start Date End Date Status Losartan Potassium 100 MG 1 tablet Orally Active Keflex 500 500 MG 1 capsule Orally every 12 hrs for 7 days 05/23/2021 Not-Taking LORazepam 1 MG 1 tablet at bedtime as needed Orally Once a day Active Medrol 4 MG as directed Orally 12/01/2019 Not-Taking Metamucil Active hydroCHLOROthiazide 12.5 MG 1 capsule in the morning Orally Once a day for 30 day(s) Not-Taking amLODIPine Besylate 10 MG 1 tablet Orall y Once a day for 30 day(s) Active Ritalin Not-Taking Atorvastatin Calcium 40 MG 1 tablet Oral ly Once a day Active Alfuzosin HCl ER 10 MG 1 tablet immediat hanna after the same meal Orally Once a day for 30 day(s) Active Paxil 10 MG 1 tablet in the morning Orally Once a day for 30 day(s) Not-Taking Metoprolol Succinate 100 MG 1 capsule [...] 1 capsule Orally Once a day Not-Taking amLODIPine Besylate 10 MG 1 tablet Orall y Once a day Not-Taking Immunizations Vaccine Route Administration Date Status Comme nts COVID-19 Pfizer BioNTech Vaccine Unknown 08/16/2021 Administered First Dose: 12/26/20 Second Dose: 01/16/2021 Social History Tobacco Use: Social History Observation Description Date Details (start date - stop date) Never Smoker NA - NA Alcohol Screen Question Answer Notes Did you have a drink containing alcohol in the p ast year? No Points 0 Interpretation Negative Tobacco use other than smoking: Question Answer Notes Are you an other tobacco user? 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) Active confirmed Vital Signs Blood pressure diastolic 60 mm Hg 02/02/2025 Height 5 ft 10 in in 02/02/2025 Blood pressure systolic 130 mm Hg 02/02/2025 Weight 165 lbs 02/02/2025 BMI 23.67 kg/m2 02/02/2025 Encounters Encounter Location Date Provider Diagnosis [facility] [address] [address] 02/21/2024 Annette Perica Tinea unguium B35.1 ; Plantar wart B07.0 ; Pain in right toe(s) M79.674 ; Pain in left toe(s) M79.675 ; Pain in left foot M79.672 and Pain in right foot M79.671 [facility] [address] [address] 05/08/2024 Annette Perica Plantar wart B07.0 ; Xerosis of skin L85.3 ; Tinea unguium B35.1 ; Pain in right toe(s) M79.674 ; Pain in left toe(s) M79.675 ; Pain in left foot M79.672 and Pain in right foot M79.[address] [address] 07/22/2024 Annette Ortega Xerosis of skin L85.3 ; Tinea unguium B35.1 ; Plantar wart B07.0 ; Pain in right toe(s) M79.674 ; Pain in left toe(s) M79.675 ; Pain in left foot M79.672 and Pain in right foot M79.[address] [address] 10/09/2024 Annette Ortega Tinea unguium B35.1 ; Plantar wart B07.0 ; Pain in right toe(s) M79.674 ; Pain in left toe(s) M79.675 ; Pain in left foot M79.672 and Pain in right foot M79.[address] [address] 02/02/2025 Annette Sibleya Tinea unguium B35.1 ; Plantar wart B07.0 ; Pain in right toe(s) M79.674 ; Pain in left toe(s) M79.675 ; Pain in left foot M79.672 and Pain in right foot M79.[address] [address] 12/29/2024 Annette Ortega Assessments Encounter Date Diagnosis (ICD Code) Assessment Notes Treatment Notes Treatment Clinical Notes Section Notes 02/21/2024 Tinea unguium (ICD-10 - B35.1) 05/08/2024 Xerosis of skin (ICD-10 - L85.3) 07/22/2024 Tinea unguium (ICD-10 - B35.1) 05/08/2024 Plantar wart (ICD-10 - B07.0) 07/22/2024 Xerosis of skin (ICD-10 - L85.3) 10/09/2024 Tinea unguium (ICD-10 - B35.1) 10/09/2024 Plantar wart (ICD-10 - B07.0) 02/02/2025 Tinea unguium (ICD-10 - B35.1) 02/02/2025 Plantar wart (ICD-10 - B07.0) 10/09/2024 Pain in right toe(s) (ICD-10 - M79.674) 07/22/2024 Plantar wart (ICD-10 - B07.0) 02/21/2024 Plantar wart (ICD-10 - B07.0) 05/08/2024 Tinea unguium (ICD-10 - B35.1) 05/08/2024 Pain in right toe(s) (ICD-10 - M79.674) 02/21/2024 Pain in right toe(s) (ICD-10 - M79.674) 07/22/2024 Pain in right toe(s) (ICD-10 - M79.674) 10/09/2024 Pain in left toe(s) (ICD-10 - M79.675) 02/02/2025 Pain in right toe(s) (ICD-10 - M79.674) 02/02/2025 Pain in left toe(s) (ICD-10 - M79.675) 10/09/2024 Pain in left foot (ICD-10 - M79.672) 07/22/2024 Pain in left toe(s) (ICD-10 - M79.675) 02/21/2024 Pain in left toe(s) (ICD-10 - M79.675) 05/08/2024 Pain in left toe(s) (ICD-10 - M79.675) 02/21/2024 Pain in left foot (ICD-10 - M79.672) 10/09/2024 Pain in right foot (ICD-10 - M79.671) 05/08/2024 Pain in left foot (ICD-10 - M79.672) 07/22/2024 Pain in left foot (ICD-10 - M79.672) 02/02/2025 Pain in left foot (ICD-10 - M79.672) 02/02/2025 Pain in right foot (ICD-10 - M79.671) 07/22/2024 Pain in right foot (ICD-10 - M79.671) 05/08/2024 Pain in right foot (ICD-10 - M79.671) 02/21/2024 Pain in right foot (ICD-10 - M79.671) Plan Of Treatment Pending Test Test Name Order Date *Uric Acid, Serum 12/01/2019 *CBC With Differential/Platelet 12/01/19 20 ESR 12/01/2019 Next Appt Details Provider Name:Annette joseph, 04/16/2025 12:15:00 PM, [address] [place] [address], [address], Insurance Providers Payer Name Payer Address Payer Phone Subscriber Number Group Number Insured Name Patient Relationship to Insured Coverage Start Date Coverage End Date Medicare National Govt [facility] [address] [place] [address] [id number] Alexi Oconnell Self - patient is the insured Med [facility] [address] [place] [address] [phone] [id number] Alexi Oconnell Self - patient is the insured Medical (General) History Medical History History ICD Code Cancer Depression Gout Anxiety High blood pressure Kidney disease Vascular grafts Surgical History Surgery Date(Month/Year) Bladder 2012 vascular surgery- lef leg 2013
--- OUTSIDE RECORDS SUMMARY | 2025-02-03 13:00 | XMS_ITS ---
Author Organization [facility] [place] Address [address] [place] [address] Care Team Providers Care Virtual Classroom Manager Name Role Phone Jaylin AUSTIN, Hernando Primary Care Provider Annette Magallanes Unavailable [phone] Allergies Allergen (clinical drug ingredient) Drug/Non Drug Allergy documented on EMR Reaction Allergy Type Onset Date Status Iodine Unknown Drug Allergy Active REASON FOR VISIT Painful nail(s) aggrevated by shoes causing difficulty standing/walking, Wart(s), Skin problem(s) Medications Medication SIG (Take, Route, Frequency, Duration) Notes Start Date End Date Status Keflex 500 500 MG 1 capsule Orally every 12 hrs for 7 days 05/23/2021 Not-Taking Medrol 4 MG as directed Orally 12/01/2019 Not-Taking Paxil 10 MG 1 tablet in the morning Orally Once a day for 30 day(s) Not-Taking Methylphenidate HCl 5 MG 1 tablet on an empty stomach Orally Twice a day Not-Taking Medrol 4 MG as directed Orally 12/02/2019 Not-Taking hydroCHLOROthiazide 12.5 MG 1 capsule in the morning Orally Once a day for 30 day(s) Not-Taking Ritalin Not-Taking Losartan Potassium 100 MG 1 tablet [...] ally Once a day Active Nortriptyline HCl 25 MG 1 capsule Orally Once a day Not-Taking Losartan Potassium 100 MG 1 tablet Orally Active Metamucil Active amLODIPine Besylate 10 MG 1 tablet Orall y Once a day for 30 day(s) Active Nortriptyline HCl 10 MG 1 capsule at bed time Orally Once a day Active Social History Tobacco Use: Social History Observation Description Date Details (start date - stop date) Never Smoker NA - NA Tobacco use other than smoking: Question Answer Notes Are you an other tobacco user? No Tobacco Control (Standard) Question Answer Notes Tobacco use: Nonsmoker Vital Signs Height 5 ft 10 in in 02/02/2025 Weight 165 lbs 02/02/2025 BMI 23.67 kg/m2 02/02/2025 Blood pressure systolic 130 mm Hg 02/03/20 25 Blood pressure diastolic 60 mm Hg 025 Encounters Encounter Location Date Provider Diagnosis [facility] [place] [address] [place] [address] 02/02/2025 Annette Ortega Tinea unguium B35.1 ; Plantar wart B07.0 ; Pain in right toe(s) M79.674 ; Pain in left toe(s) M79.675 ; Pain in left foot M79.672 and Pain in right foot M79.671 Assessments Encounter Date Diagnosis (ICD Code) Assessment Notes Treatment Notes Treatment Clinical Notes Section Notes 02/02/2025 Tinea unguium (ICD-10 - B35.1) 02/02/2025 Plantar wart (ICD-10 - B07.0) 02/02/2025 Pain in right toe(s) (ICD-10 - M79.674) 02/02/2025 Pain in left toe(s) (ICD-10 - M79.675) 02/02/2025 Pain in left foot (ICD-10 - M79.672) 02/02/2025 Pain in right foot (ICD-10 - M79.671) Plan Of Treatment Next Appt Details Follow Up: 2 Months, Reason: Provider Name:Annette joseph, 04/16/2025 12:15:00 PM, [address] [facility], [place], [address], Procedure Notes * Category Sub-Category Detail Notes Wart Treatment Procedure Verrucae(s) were debrided to pin-point bleeding margins with sterile surgical blade, silver nitrate chemocautery applied, recomm. immune-boosting meds such as zinc, recomm. follow up with topical chemosurgical agents, Pt defers any other forms of tx (14273) Debride Nail 6-10 Nail debridement Due to [...] use of a nail nipper and/or dremel-type grinder set up operator jig, to a more viable healthy nail plate [...] to maintain effectiveness in symptomatic relief - 43509 Progress Notes * Alexi OCONNELL PDOB: 0 (84 yo M)Acc No.[id number]:02/02/2025 Progress Note Patient:?Clyde OCONNELLo P Provider:?Annette Ortega DPM :1940???Age:84 Y???Sex:Male Hussein e:02/02/2025 Address:[address] [place] [address] [address], [place], [place] Pcp:Hernando Mosqueda MD Subjective: * Chief Complaints: * ???Painful nail(s) aggrevate d by shoes causing difficulty standing/walkingWart(s)Skin problem(s) * HPI: ???Painful Nails:?Pt States Last PCP Visit:?Date:?08/20/2024 ???Skin problems:?Pt States PCP Visit: ?DATE?08/20/2024 * ROS:?General/Constitutional:?Nausea?denies.?Vomiting?denies.?Hunger Thirst?denies.?Loss appetite?denies.?Chills?denies.?Fatigue?denies.?Fever?denies.?Night Sweats?denies.?Unexplained weight loss?denies.?Unexplained [...] ased.?Father: .?Siblings: .? * Social History:?Tobacco Use:?Tobacco use other than smoking?Are you an other tobacco user??No ?Tobacco Control (Standard)?Tobacco use:?Nonsmoker ???Miscellaneous:?Caffeine: no, decaff , 1-2 cups per [...] * Vitals:?Ht: 5 ft 10 in, Wt: 165, BMI: 23.67, Shoe size: 10-10.5, BP: 130/60 mm Hg, Wt-k.84 kg. * Examination: ???Nails: ?NAILS are:?Elongated, overgrown, [...] use of a nail nipper and/or dremel-type grinder set up operator jig, to a more viable healthy nail plate [...] to maintain effectiveness in symptomatic relief - 05743.?Wart Treatment:?Procedure?Verrucae(s) were debrided to pin-point bleeding margins with sterile surgical blade, silver nitrate chemocautery applied, recomm. immune-boosting meds such as zinc, recomm. follow up with topical chemosurgical agents, Pt defers any other forms of tx (91953).? * Procedure Codes:?85111 DEBRI DE NAIL, 6 OR MORE, Modifiers: XS 29876 Wart Destruction, 1-14, Modifiers: XS * Preventive Medicine:? ??Screening/Special Tests:?Fall Risk?Assessment:?Performed ?Screening:?No falls in the past year ?FALLS: Screening for Future Fall Risk?Have you had two or more falls in the past year??No * Follow Up:?2 Months * Images: * Sign off status: Completed true * Provider:?Annette Ortega DPM Date:? Generated for Ganesh dalton/Jenny/Chema on:?02/03/2025 12:59 PM EDT History and Physical Notes * HPI (History of Present Illness) Category Sub-Category Detail Notes Category Not es Painful Nails Pt States Last PCP Visit: Date:: 08/20/2024 Skin problems Pt States PCP Visit: DATE: 08/20/2024 Examination Category Sub-Category Detail Notes Category Not [...]
== END 2025-02-03 13:00 | disposition home or self-care (01) ==
LOC: HO.HMCFM 11:22
PROVIDERS: PCP Family Medicine; Visit Provider Family Medicine
DX: Z00.00 Encounter for general adult medical examination without abnormal findings (principal)

== ENCOUNTER → 2025-02-03 11:21 | Outpatient (BNVA) | payer MEDICARE, SELFPAY | PROVIDERS: PCP Family Medicine; Visit Provider Family Medicine | DX: I12.9 Hypertensive chronic kidney disease with stage 1 through stage 4 chronic kidney disease, or unspecified chronic kidney disease (principal); E11.22 Type 2 diabetes mellitus with diabetic chronic kidney disease; N18.9 Chronic kidney disease, unspecified | CPT/HCPCS: 83036; 99212 ==

== ENCOUNTER 2025-07-08 11:35 | Outpatient (AMB) | payer MEDICARE, SELFPAY ==
--- OUTSIDE RECORDS SUMMARY | 2024-12-29 08:30 | XMS_ITS ---
Author Organization [facility] Address [address] [place] [address] Care Team Providers Care Control Systems Eng Name Role Phone Jaylin AUSTIN, Hernando Primary Care Provider Annette Magallanes [phone] Encounters Encounter Location Date Provider Diagnosis [address] [address] 12/29/2024 Annette Ortega Plan Of Treatment Next Appt Details Provider Name:Annette joseph, 07/09/2025 10:00:00 AM, [address] [place], [address], Progress Notes * Alexi OCONNELL PDOB: [birth year] (84 yo M)Acc No.[id number]:12/29/2024 Progress Note Patient: Ayad HARRIS Alexi Whitney Provider: Anthony Ortega DPM :1940 A ge:84 Y S ex:Male Date:12/29/2024 Address:[address] [place] [address], [address], [place], [place] Pcp:Hernando Mosqueda MD Subjective: * Chief Complaints: [...] 12/29/2024 Generated for Ganesh dalton/Jenny/Chema on: 1 01:25 PM EDT
--- NOTE | 2025-07-08 11:40 | MHC.PC.OV ---
Vital Signs 07/08/25 11:48 Height 5 ft 10 in Weight 175 lb 8 oz BMI 25.2 BP 110/57 L Blood Pressure Location Rt brachial Position Sitting Respiration 16 Pulse 60 Pulse Source Pulse Oximeter Temp 97.9 F Temp Source Oral Pulse Oximetry (%) 96 Oxygen Delivery Method Room Air Intake Visit Reasons: f/u HTN, CRF RE Intake Note: patient here for follow up on HTN and CRF RE Furnace Brazer Required: No Allergies lisinopril (LISINOPRIL) Allergy (Intermediate, Verified 07/08/25 11:45) ANGIOEDEMA Iodinated Contrast Media (IV CONTRAST) Allergy (Unknown, Verified 07/08/25 11:45) SWELLING orange juice (ORANGE JUICE) Allergy (Unknown, Verified 07/08/25 11:45) BPH/KIDNEY PROBLEM Medication List - Last Reconciled 07/08/25 by Hernando Mosqueda MD alfuzosin ER 10 mg PO BEDTIME amlodipine 10 mg PO DAILY 90 days atorvastatin 40 mg PO DAILY comp.stocking,knee,long,medium Daily As directed. 10-20 mm Hg. 99 days lorazepam 1 mg PO TID losartan 25 mg PO DAILY 90 days metoprolol succinate ER 150 mg (1.5 x 100 mg) PO DAILY 90 days nortriptyline 25 mg PO DAILY nortriptyline 10 mg PO BEDTIME Tobacco use date assessed: 07/08/25 Fall risk assessment: No Falls in past year Last assessed Fall Risk: 07/08/25 Dental Screening Dental Screen Date: 07/08/25 Did you have a dental visit in the last 12 months?: No Did you have a dental problem in the last 6 months where you did not have access to dental care?: No Was dental information given to patient?: No (patient has dentures) HPI f/u HTN, CRF RE HPI Details 84 y/o male presents to f/u HTN, CRF, diet controlled diabetes. Blood pressure 110/57, 60p. He is on metoprolol 150mg daily, losartan 25mg, amlodipine 10mg daily. Last A1c 02/03/25 6.1%. A1c today 07/08/25 5.6%. Reports some memory changes. HPI Comments History of Present Illness Details Documentation assistance for Hernando Mosqueda MD, was provided by Amilcar Yan, Recreation Technician on 07/08/2025 at 12:10 PM I, Dr. Mosqueda, have read, observed, and verified documentation. ?? [facility] Medical History Peripheral vascular disease Diet-controlled diabetes mellitus Essential hypertension HTN (hypertension) Surgical History History of surgery History of tonsillectomy History of bladder surgery Family History Father HTN (hypertension) Lung cancer Mother HTN (hypertension) Sister Mental health disorder Sister Anxiety Son No problems noted. Son No problems noted. Daughter No problems noted. Daughter No problems noted. Social History Housing: Condominium Patient Tobacco Use Status: Former Tobacco user Years Smoked: 25 years e-Cigarette/Vaping Use: Never Used Second Hand Smoke Exposure: No service: Yes Current occupational status: retired Current occupational exposures/hazards: No Cognitive needs: No Hearing needs: Yes Vision needs: Yes Questionnaire Thrive Questionnaire Date Thrive assessed: 02/03/25 I am a: Patient What is your living situation today?: I have a steady place to live Within the past 12 months, did the food you bought not last and you didn't have the money to get more?: Never true Within the past 12 months, did you worry whether your food would run out before you got money to buy more?: Never true Do you have trouble paying for medicines?: No Do you have trouble getting transportation to medical appointments?: No Do you have trouble paying your heating and electricity bill?: No Do you have trouble taking care of your child, family member or friend?: No Do you have trouble with day-to-day activities such as bathing, preparing meals, shopping, managing finances, etc.?: No Are you currently unemployed and looking for a job?: No Are you interested in more education?: No Please select the resources that you would like help with: None Currently or been in a relationship where the following occur: No concerns reported THRIVE Score: 0 MAGNUS-7 AMB Questionnaire MAGNUS-7 Date MAGNUS - 7 assessed: 10/16/21 Source: Developed by Giovana Delcid B.W. Simeon, Tim Wong and colleagues, with an educational monika from [employer]. Review of Systems Const Denies chills, Denies fatigue, Denies fever(s), Denies headache(s) and Denies weakness ENT Denies dizziness and Denies headache(s) Card Denies dyspnea Resp Denies cough, Denies dyspnea, Denies wheezing and Denies other (shortness of breath) Musc Denies numbness and Denies tingling Neuro Denies dizziness, Denies headache(s), Denies numbness, Denies tingling and Denies weakness Psych Denies anxiety and Denies depression Endo Denies fatigue Aller/Immun Denies wheezing Physical exam (Primary Care) Vital Signs: Last Vital Signs Temp 97.9 F 07/08/25 11:48 Pulse 60 07/08/25 11:48 Resp 16 07/08/25 11:48 BP 110/57 L 07/08/25 11:48 Pulse Ox 96 07/08/25 11:48 Oxygen Delivery Method Room Air 07/08/25 11:48 BMI result Body Mass Index 25.2 Tobacco/Smoking Status: Tobacco use Status Tobacco use date assessed 07/08/25 07/08/25 11:54 Patient Tobacco Use Status Former Tobacco user 07/08/25 11:42 e-Cigarette/Vaping Use Never Used 07/08/25 11:42 Thrive Assessment: Date of Thrive Assessment Date Thrive assessed 02/03/25 07/08/25 11:42 Currently or been in a relationship where the following occur: No concerns reported Const General: well developed; No acute distress Nutritional Appearance: well nourished Orientation/consciousness: patient oriented x3 [facility] Head: Yes normocephalic and Yes atraumatic Eyes General: appearance normal, both eyes and all related structures Pupils: Equal, round and reactive pupils present EOM: EOMs intact bilaterally Resp Effort & Inspection: normal respiratory effort Auscultation: clear to auscultation bilaterally Cardio Rate: regular rate Rhythm: regular rhythm Heart sounds: S1 normal heart sound present, S2 normal heart sound present, no gallops, no murmurs and no rubs Neuro General: patient oriented x3 and gait normal Cranial nerves: Yes Equal, round and reactive pupils present Psych Affect: normal affect Coding Level of Care Code Est Pt Level 4 (62091) Diagnoses Essential hypertension I10 Diet-controlled diabetes mellitus E11.9 Memory changes R41.3 Assessment & Plan Assessment & Plan (1) Essential hypertension: Code(s): I10 - Essential (primary) hypertension Category: Medical Plan: BP well controlled Continue current medications (2) Diet-controlled diabetes mellitus: Code(s): E11.9 - Type 2 diabetes mellitus without complications Category: Medical Plan: A1c 5.6% Good Diet control and goal is < 7 Cont diet control (3) Memory changes: Code(s): R41.3 - Other amnesia Category: Medical Plan: Memory changes /cognitive decline Examiner notes some memory changes and cognitive decline at his visits. Mini cog today scored 3 however his did interject to give help with o'clock it is unclear if would have scored lower or not. So mini cog score of 2 or 3. Referring him to [facility] neuropsych[facility]ry for formal evaluation and recommendations. Plan Saw Dr Winkler Orders: Orders AMB Hemoglobin A1c Today E11.9 - Type 2 diabetes mellitus without complications Comprehensive Met. Panel Today N18.9 - Chronic kidney disease, unspecified Referrals Neuropsychiatry Referral R41.3 - Other amnesia, R41.89 - Other symptoms and signs involving cognitive functions and awareness
[2025-07-08 11:48] VITALS: BP 110/57; PULSE 60; RESP 16; TEMP 36.6; O2SAT 96; BMI 25.2
--- OUTSIDE RECORDS SUMMARY | 2025-07-08 13:25 | XMS_ITS | Patient Health Record ---
Author Organization [facility] Earnest fausto [place] Address [address] [place] [address] Care Team Providers Care Blanket Inspector Name Role Phone Hernando Mosqueda MD Primary Care Provider Annette Magallanes Unavailable [phone] Allergies Allergen (clinical drug ingredient) Drug/Non Drug Allergy documented on EMR Reaction Allergy Type Onset Date Status Iodine Unknown Drug Allergy Active Reason For Referral No Information Medications Medication SIG (Take, Route, Frequency, Duration) Notes Start Date End Date Status amLODIPine Besylate 10 MG 1 tablet Orall y Once a day; Duration: 30 day(s) Active Ritalin Not-Taking Losartan Potassium 100 MG 1 tablet Orally Active Keflex 500 500 MG 1 capsule Orally every 12 hrs; Duration: 7 days 05/23/2021 Not-Taking hydroCHLOROthiazide 12.5 MG 1 capsule in the morning Orally Once a day; Duration: 30 day(s) Not-Taking Losartan Potassium 100 MG 1 tablet Orall y Once a day; Duration: 30 day(s) Not-Taking Nortriptyline HCl 10 MG 1 capsule at bed time Orally Once a day Active Nortriptyline HCl 25 MG 1 capsule Orally Once a day; Duration: 30 day(s) Not-Taking Nortriptyline HCl 25 MG 1 capsule Orally Once a day Not-Taking amLODIPine Besylate 10 MG 1 tablet Orall y Once a day Not-Taking Alfuzosin HCl ER 10 MG 1 tablet immediat hanna after the same meal Orally Once a day; Duration: 30 day(s) Active Paxil 10 MG 1 tablet in the morning Orally Once a day; Duration: 30 day(s) Not-Taking Metoprolol Succinate 100 MG 1 capsule Or ally Once a day Active Methylphenidate HCl 5 MG 1 tablet on an empty stomach Orally Twice a day Not-Taking LORazepam 1 MG 1 tablet at bedtime as needed Orally Once a day Active Medrol 4 MG as directed Orally 12/01/2019 Not-Taking Atorvastatin Calcium 40 MG 1 tablet Oral ly Once a day Active Medrol 4 MG as directed Orally 12/02/2019 Not-Taking Metamucil Active Immunizations Vaccine Route Administration Date Status Comme nts Influenza Unknown 06/07/2024 Administered COVID-19 Pfizer BioNTech Vaccine Unknown 08/16/2021 Administered [...] (Standard) Question Answer Notes Tobacco use: Nonsmoker AUDIT-C (Standard) Question Answer Notes Did you have a drink containing alcohol in the p ast year? No Points 0 Interpretation Negative Problems Problem Type SNOMED Code ICD Code Onset Dates Problem Status W/U Status Risk Notes Problem Plantar wart (22009417) Plantar wart (B07.0) Active confirmed Problem Gouty arthritis of right foot (7999976099965 107) 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) Active confirmed Vital Signs Blood pressure diastolic 60 mm Hg 04/16/2025 Height 5 ft 10 in in 04/16/2025 Blood pressure systolic 130 mm Hg 04/16/2025 Weight 165 lbs 04/16/2025 BMI 23.67 kg/m2 04/16/2025 Encounters Encounter Location Date Provider Diagnosis [facility] [address] 07/22/2024 Annette Ortega Xerosis of skin L85.3 ; Tinea unguium B35.1 ; Plantar wart B07.0 ; Pain in right toe(s) M79.674 ; Pain in left toe(s) M79.675 ; Pain in left foot M79.672 and Pain in right foot M79.[address] [facility] [address] 10/09/2024 Annette Sibleya Tinea unguium B35.1 ; Plantar wart B07.0 ; Pain in right toe(s) M79.674 ; Pain in left toe(s) M79.675 ; Pain in left foot M79.672 and Pain in right foot M79.[address] [address] 02/02/2025 Annette Ortega Tinea unguium B35.1 ; Plantar wart B07.0 ; Pain in right toe(s) M79.674 ; Pain in left toe(s) M79.675 ; Pain in left foot M79.672 and Pain in right foot M79.[address] [address] 04/16/2025 Annette Ortega Tinea unguium B35.1 ; Plantar wart B07.0 ; Pain in right toe(s) M79.674 ; Pain in left toe(s) M79.675 ; Pain in left foot M79.672 and Pain in right foot M79.[address] [address] 12/29/2024 Annette Ortega Assessments Encounter Date Diagnosis (ICD Code) Assessment Notes Treatment Notes Treatment Clinical Notes Section Notes 07/22/2024 Tinea unguium (ICD-10 - B35.1) 07/22/2024 Xerosis of skin (ICD-10 - L85.3) 10/09/2024 Tinea unguium (ICD-10 - B35.1) 10/09/2024 Plantar wart (ICD-10 - B07.0) 02/02/2025 Tinea unguium (ICD-10 - B35.1) 04/16/2025 Tinea unguium (ICD-10 - B35.1) 02/02/2025 Plantar wart (ICD-10 - B07.0) 04/16/2025 Plantar wart (ICD-10 - B07.0) 10/09/2024 Pain in right toe(s) (ICD-10 - M79.674) 07/22/2024 Plantar wart (ICD-10 - B07.0) 07/22/2024 Pain in right toe(s) (ICD-10 - M79.674) 10/09/2024 Pain in left toe(s) (ICD-10 - M79.675) 02/02/2025 Pain in right toe(s) (ICD-10 - M79.674) 04/16/2025 Pain in right toe(s) (ICD-10 - M79.674) 04/16/2025 Pain in left toe(s) (ICD-10 - M79.675) 10/09/2024 Pain in left foot (ICD-10 - M79.672) 02/02/2025 Pain in left toe(s) (ICD-10 - M79.675) 07/22/2024 Pain in left toe(s) (ICD-10 - M79.675) 10/09/2024 Pain in right foot (ICD-10 - M79.671) 07/22/2024 Pain in left foot (ICD-10 - M79.672) 02/02/2025 Pain in left foot (ICD-10 - M79.672) 04/16/2025 Pain in left foot (ICD-10 - M79.672) 04/16/2025 Pain in right foot (ICD-10 - M79.671) 02/02/2025 Pain in right foot (ICD-10 - M79.671) 07/22/2024 Pain in right foot (ICD-10 - M79.671) Plan Of Treatment Pending Test Test Name Order Date *Uric Acid, Serum 12/01/2019 *CBC With Differential/Platelet 12/01/19 20 ESR 12/01/2019 Next Appt Details Provider Name:Annette joseph, 07/09/2025 10:00:00 AM, [address] [facility], [place], [address], Insurance Providers Payer Name Payer Address Payer Phone Subscriber Number Group Number Insured Name Patient Relationship to Insured Coverage Start Date Coverage End Date Medicare National [employer] [address] [facility] [place] [address] [id number] Alexi Oconnell Self - patient is the insured [facility] [address] [place] [address] [phone] [id number] Alexi Oconnell Self - patient is the insured Medical (General) History Medical History History ICD Code Cancer Depression Gout Anxiety High blood pressure Kidney disease Vascular grafts Surgical History Surgery Date(Month/Year) Bladder 2012 vascular surgery- lef leg 2013
--- OUTSIDE RECORDS SUMMARY | 2025-07-08 13:25 | XMS_ITS | Patient Health Record ---
Author Organization [facility] Address [address] [place] [address] Care Team Providers Care Manager Managed Care Name Role Phone Heather(inactive) Ankush [place] Primary Care Provider [facility] Arellano Jr Unavailable Allergies Allergen (clinical drug ingredient) Drug/Non Drug Allergy documented on EMR Reaction Allergy Type Onset Date Status IVP Dye (uncoded) Unknown Allergy Ac tive Reason For Referral No Information Medications Medication SIG (Take, Route, Frequency, Duration) Notes Start Date End Date Status hydroCHLOROthiazide 12.5 MG 1 capsule in the morning Orally Once a day Active Losartan Potassium 100 MG 1 tablet Orall y Once a day Active LORazepam 1 MG 1 tablet at bedtime as needed Orally Once a day Active Pravastatin Sodium 20 MG 1 tablet Orally Once a day Active Alfuzosin HCl 10 MG Orally Active Paxil 10 MG 1 tablet in the morning Orally Once a day Active Metoprolol Succinate ER 50 MG 1 tablet O rally Once a day Active amLODIPine Besylate 5 MG 1 tablet Orally Once a day Active Nortripytline HCl 25 MG 1 capsule Orally Once a day Active Social History Tobacco Use: Social History Observation Description Date Details (start date - stop date) Former Smoker NA - NA Tobacco Use/Smoking Question Answer Notes Patient is a former smoker How long has it been since you last smoked? > 10 years Alcohol Screen Question Answer Notes Did you have a drink containing alcohol in the p ast year? No Points 0 Interpretation Negative Problems Problem Type SNOMED Code ICD Code Onset Dates Problem Status W/U Status Risk Notes Problem [id number] Colon cancer screening (Z12.11) Active confirmed Plan Of Treatment Pending Test Test Name Order Date COLONOSCOPY WITH BIOPSY 08/03/2011 Insurance Providers Payer Name Payer Address Payer Phone Subscriber Number Group Number Insured Name Patient Relationship to Insured Coverage Start Date Coverage End Date MEDICARE [place] [address] [place] [address] [id number] TERRI LOPEZ Self - patient is the insured [employer] ATT[employer] CLAIMS [address] [place] [address] [id number] TERRI LOPEZ Self - patient is the insured Medical (General) History Medical History History ICD Code hypertension elevated cholesterol enlarged prostate anxiety Surgical History Surgery Date(Month/Year) bladder surgery vascular surgery
--- OUTSIDE RECORDS SUMMARY | 2025-07-08 13:25 | XMS_ITS | Clinical Summary ---
Author Organization [facility] [place] [facility] Facility Address [address] [address] Care Team Providers Care Statement Clerks Manager Name Role Phone Hernando Mosqueda MD Primary [...] Active Problems Problem Noted Date Diagnosed Date Carotid artery stenosis 06/10/2025 Stage 3b chronic kidney disease 06/03/2023 Anxiety [...] 06/01/2021 Malignant neoplasm of urinary bladder 06/01/2021 Encounters Date Type Department Care Team Description 06/10/2025 1:30 PM EDT Office Visit [facility] [address] [place] [address] Claus Winkler MD Stage 3b chronic kidney disease (HCC) (Primary Dx); Type 2 diabetes mellitus with diabetic chronic kidney disease (HCC); Renal osteodystrophy from Last 3 Months Immunizations Immunization Administration Dates Next Due Pneumococcal [...] Sign Reading Time Taken Comments Blood Pressure 100/59 06/10/2025 1:07 PM EDT Pulse 64 06/10/2025 1:07 PM EDT Temperature - - Respiratory Rate - - Oxygen Saturation 94% 06/10/2025 1:07 PM EDT Inhaled Oxygen Concentration - - Weight 79.8 kg (176 lb) 06/10/2025 1:07 PM EDT Height 180.3 cm (5' 11 ) 10/19/2019 12:00 PM EST Body Mass Index 24.55 10/19/2019 12:00 PM EST Plan of Treatment Upcoming Encounters Date Type Department Care Team (Late st Contact Info) Description 06/09/2026 1:15 PM EDT Office Visit [facility] [address] [place] [address] Claus Winkler MD [address] [address] Health Maintenance Due Date Last Done Comments Pneumococcal Vaccine: 50+ Ye ars (2 of 2 - PCV) 04/07/2014 04/07/2013 Diabetes: Hemoglobin A1C 05/31/2022 Diabetes: Ophthalmology Exam 05/31/2022 Diabetes: Pedal Pulse Checked 05/31/2022 Diabetes: Sensory Foot Exam 05/31/2022 Diabetes: Visual Foot Exam 05/31/2022 Influenza Vaccine (#1) 2025 Pneumococcal Vaccine: Peds ( 0 to 5 Years) and At-Risk Patients (6 to 49 Years) Discontinued 04/07/2013 Hepatitis B Vaccine Aged Out No longe r eligible based on patient's age to complete this topic Insurance Medicare [facility] Medicare [facility] Care Teams Statement Clerks Manager Relationship Specialty Start Date End Date Hernando Mosqueda MD [address] [address] PCP - General 10/17/20
== END 2025-07-08 12:34 | disposition home or self-care (01) ==
LOC: HO.HMCFM 11:36
PROVIDERS: PCP Family Medicine; Visit Provider Family Medicine
DX: I10 Essential (primary) hypertension (principal); E11.9 Type 2 diabetes mellitus without complications; R41.3 Other amnesia

== ENCOUNTER 2025-07-08 11:35 | Outpatient (REF) | payer MEDICARE, SELFPAY | END 2025-07-08 11:36 | disposition home or self-care (01) | LOC: HO.WFDLDS 11:35 | PROVIDERS: PCP Family Medicine; Visit Provider Family Medicine | DX: I10 Essential (primary) hypertension (principal); E11.9 Type 2 diabetes mellitus without complications; R41.3 Other amnesia | CPT/HCPCS: 36415; 80053; 83036; 99212 ==

== ENCOUNTER 2025-08-12 13:03 | Outpatient (REF) | payer MEDICARE, SELFPAY ==
[2025-08-12 18:02] LABS: Alanine Aminotransferase 25 U/L (0-40); Albumin Level 4.3 g/dL (3.5-5.0); Alkaline Phosphatase 83 U/L (39-117); Anion Gap 12 (12-20); Aspartate Amino Transferase 24 U/L (5-37); Blood Urea Nitrogen 25 mg/dL (9-16); Calcium 9.3 mg/dL (8.4-10.2); Carbon Dioxide 23 mmol/L (22-29); Chloride 108 mmol/L (96-108); Estimated Glomerular Filt Rate 39; Potassium 5.0 mmol/L (3.3-5.1); Sodium 138 mmol/L (135-145); Total Protein 7.4 g/dL (6.5-8.0)
== END 2025-08-12 13:04 | disposition home or self-care (01) ==
LOC: HO.WFDLDS 13:03
PROVIDERS: PCP Family Medicine; Visit Provider Family Medicine
DX: Z00.00 Encounter for general adult medical examination without abnormal findings (principal); E11.22 Type 2 diabetes mellitus with diabetic chronic kidney disease; I12.9 Hypertensive chronic kidney disease with stage 1 through stage 4 chronic kidney disease, or unspecified chronic kidney disease; N18.32 Chronic kidney disease, stage 3b; R41.3 Other amnesia; B34.9 Viral infection, unspecified
CPT/HCPCS: 36415; 80053; 99212

== ENCOUNTER 2025-08-12 13:03 | Outpatient (AMB) | payer MEDICARE, SELFPAY ==
--- OUTSIDE RECORDS SUMMARY | 2024-12-29 07:30 | XMS_ITS ---
Author Organization [facility] Address [address] [place] [address] Care Team Providers Care Research And Insights Executive Name Role Phone Jaylin AUSTIN, Hernando Primary Care Provider Annette Magallanes [phone] Encounters Encounter Location Date Provider Diagnosis [address] [address] 12/29/2024 Annette Ortega Plan Of Treatment Next Appt Details Provider Name:Annette joseph, 10/15/2025 11:15:00 AM, [address] [place] [address], [address], Progress Notes * Alexi OCONNELL PDOB: [birth year] (84 yo M)Acc No.[id number]:12/29/2024 Progress Note Patient: Ayad [place] Alexi Whitney Provider: Anthony Ortega DPM :1940 A ge:84 Y S ex:Male Date:12/29/2024 Address:[address] [place] [address], [address], [place], [place] Pcp:Hernando Mosqueda MD Subjective: * Chief Complaints: * * Medical History: Objective: * Vitals: Assessment: Plan: * Treatment: * Images: * The named appointment provid er may or may not be the originator of this progress note, and it is not deemed complete until electronically signed by the appointment provider. Sign off status: Pending * Provider: Anthony Ortega DPM Date: 0 12/29/2024 Generated for Ganesh dalton/Jenny/Chema on: 1 10/12/2024 03:57 PM EST
--- NOTE | 2025-08-12 13:10 | MHC.PC.OV ---
Vital Signs 08/12/25 13:15 Height 5 ft 10 in Weight 180 lb 4 oz BMI 25.9 BP 131/63 Blood Pressure Location Lt brachial Position Sitting Respiration 16 Pulse 57 Pulse Source Pulse Oximeter Temp 97.9 F Temp Source Temporal Artery Scan Pulse Oximetry (%) 96 Oxygen Delivery Method Room Air Intake Visit Reasons: f/u memory changes Intake Note: patient here for follow up on memory changes Reed Repairer Required: No Allergies lisinopril (LISINOPRIL) Allergy (Intermediate, Verified 08/12/25 13:13) ANGIOEDEMA Iodinated Contrast Media (IV CONTRAST) Allergy (Unknown, Verified 08/12/25 13:13) SWELLING orange juice (ORANGE JUICE) Allergy (Unknown, Verified 08/12/25 13:13) BPH/KIDNEY PROBLEM Medication List - Last Reconciled 08/12/25 by Hernando Mosqueda MD alfuzosin ER 10 mg PO BEDTIME amlodipine 10 mg PO DAILY 90 days atorvastatin 40 mg PO DAILY comp.stocking,knee,long,medium Daily As directed. 10-20 mm Hg. 99 days lorazepam 1 mg PO TID losartan 25 mg PO DAILY 90 days metoprolol succinate ER 150 mg (1.5 x 100 mg) PO DAILY 90 days nortriptyline 25 mg PO DAILY nortriptyline 10 mg PO BEDTIME Tobacco use date assessed: 08/12/25 Fall risk assessment: No Falls in past year Last assessed Fall Risk: 08/12/25 Dental Screening Dental Screen Date: 08/12/25 Did you have a dental visit in the last 12 months?: No Did you have a dental problem in the last 6 months where you did not have access to dental care?: No Was dental information given to patient?: No HPI f/u memory changes HPI Details 84 y/o male presents to f/u memory changes. Pt notes he had been feeling unwell x1 week. Reports some nasal congestion. He feels it has been improving. [facility] Medical History Peripheral vascular disease Diet-controlled diabetes mellitus Essential hypertension HTN (hypertension) Surgical History History of surgery History of tonsillectomy History of bladder surgery Family History Father HTN (hypertension) Lung cancer Mother HTN (hypertension) Sister Mental health disorder Sister Anxiety Son No problems noted. Son No problems noted. Daughter No problems noted. Daughter No problems noted. Social History Housing: Condominium Patient Tobacco Use Status: Former Tobacco user Years Smoked: 25 years e-Cigarette/Vaping Use: Never Used Second Hand Smoke Exposure: No service: Yes Current occupational status: retired Current occupational exposures/hazards: No Cognitive needs: No Hearing needs: Yes Vision needs: Yes Questionnaire Thrive Questionnaire Date Thrive assessed: 02/03/25 I am a: Patient What is your living situation today?: I have a steady place to live Within the past 12 months, did the food you bought not last and you didn't have the money to get more?: Never true Within the past 12 months, did you worry whether your food would run out before you got money to buy more?: Never true Do you have trouble paying for medicines?: No Do you have trouble getting transportation to medical appointments?: No Do you have trouble paying your heating and electricity bill?: No Do you have trouble taking care of your child, family member or friend?: No Do you have trouble with day-to-day activities such as bathing, preparing meals, shopping, managing finances, etc.?: No Are you currently unemployed and looking for a job?: No Are you interested in more education?: No Please select the resources that you would like help with: None Currently or been in a relationship where the following occur: No concerns reported THRIVE Score: 0 MAGNUS-7 AMB Questionnaire MAGNUS-7 Date MAGNUS - 7 assessed: 10/16/21 Source: Developed by Drs. Cameron Pimentel, Giovana Hendrix, Tim Wong and colleagues, with an educational monika from [email or web address]. Review of Systems Const Denies chills, Denies fatigue, Denies fever(s), Denies headache(s) and Denies weakness ENT Denies dizziness, Denies headache(s) and Reports nasal congestion Card Denies dyspnea Resp Denies cough, Denies dyspnea, Denies wheezing and Denies other (shortness of breath) Musc Denies numbness and Denies tingling Neuro Denies dizziness, Denies headache(s), Denies numbness, Denies tingling and Denies weakness Psych Denies anxiety and Denies depression Endo Denies fatigue Aller/Immun Denies wheezing Physical exam (Primary Care) Vital Signs: Last Vital Signs Temp 97.9 F 08/12/25 13:15 Pulse 57 08/12/25 13:15 Resp 16 08/12/25 13:15 BP 131/63 08/12/25 13:15 Pulse Ox 96 08/12/25 13:15 Oxygen Delivery Method Room Air 08/12/25 13:15 BMI result Body Mass Index 25.9 Tobacco/Smoking Status: Tobacco use Status Tobacco use date assessed 08/12/25 08/12/25 13:19 Patient Tobacco Use Status Former Tobacco user 08/12/25 13:12 e-Cigarette/Vaping Use Never Used 08/12/25 13:12 Thrive Assessment: Date of Thrive Assessment Date Thrive assessed 02/03/25 08/12/25 13:12 Currently or been in a relationship where the following occur: No concerns reported Const General: well developed; No acute distress Nutritional Appearance: well nourished Orientation/consciousness: [facility]3 [facility]: Yes normocephalic and Yes atraumatic Eyes General: appearance normal, both eyes and all related structures Pupils: Equal, round and reactive pupils present EOM: EOMs intact bilaterally Resp Effort & Inspection: normal respiratory effort Auscultation: clear to auscultation bilaterally Cardio Rate: regular rate Rhythm: regular rhythm Heart sounds: S1 normal heart sound present, S2 normal heart sound present, no gallops, no murmurs and no rubs Neuro General: patient oriented x3 and gait normal Cranial nerves: Yes Equal, round and reactive pupils present Psych Affect: normal affect Coding Level of Care Code Est Pt Level 4 (58482) Diagnoses Memory changes R41.3 Viral illness B34.9 Essential hypertension I10 Stage 3b chronic kidney disease N18.32 Assessment & Plan Assessment & Plan (1) Memory changes: Code(s): R41.3 - Other amnesia Category: Medical Plan: [facility] memory clinic is not taking new patients currently as they are over booked. Will refer to another neuropsych specialist Also, patient has a psychiatrist who has retired - will make a new referral when he gets me the name of preferred psychiatrist. (2) Viral illness: Code(s): B34.9 - Viral infection, unspecified Category: Medical Plan: Mild rhinitis and irritation of throat. This is resolving Recommended rest and plenty of fluids Should continue to resolve (3) Essential hypertension: Code(s): I10 - Essential (primary) hypertension Category: Medical Plan: Blood pressure is a little higher than usual but still controlled. Continue current medications (4) Stage 3b chronic kidney disease: Code(s): N18.32 - Chronic kidney disease, stage 3b Category: Medical Plan: Stable Continue to control blood pressure and blood sugar Avoid NSAIDs and salt/sodium Hydrate well Follow-up with your hoop puncher as recommended Medications: Refilled amlodipine 10 mg PO DAILY 90 tabs 3RF 90 days
[2025-08-12 13:15] VITALS: BP 131/63; PULSE 57; RESP 16; TEMP 36.6; O2SAT 96; BMI 25.9
--- OUTSIDE RECORDS SUMMARY | 2025-08-12 15:58 | XMS_ITS | Clinical Summary ---
Author Organization [facility] Facility Address [address] [address] Care Team Providers Care Aircraft Tool Maker Name Role Phone Hernando Mosqueda MD Primary Care Provider [phone] Allergies Active Allergy Reactions Criticality Noted Date [...] Office Visit [facility] [address] [place] [address] Claus Winkler MD Stage 3b chronic kidney [...] Visit [facility] [address] [place] [address] Claus Winkler MD [address] [address] Health Maintenance Due Date Last [...] age to complete this topic Insurance Medicare [facility] Medicare [facility] Care Teams Aircraft Tool Maker Relationship Specialty Start Date End Date Hernando Mosqueda MD [address] [address] PCP - General 10/17/20
--- OUTSIDE RECORDS SUMMARY | 2025-08-12 15:58 | XMS_ITS | Patient Health Record ---
Author Organization [facility] Address [address] [place] [address] Care Team Providers Care Estate Planning Director Name Role Phone Heather(inactive) Ankush [place] Primary [...] Problem Status W/U Status Risk Notes Problem Colon cancer screening (600359231) Colon cancer screening (Z12.11) Active confirmed Plan Of Treatment Pending Test Test Name Order Date COLONOSCOPY WITH BIOPSY 08/03/2011 Insurance Providers Payer Name Payer Address Payer Phone Subscriber Number Group Number Insured Name Patient Relationship to Insured Coverage Start Date Coverage End Date MEDICARE OF [place] [address] [place] [id number] TERRI LOPEZ Self - patient is the insured [employer] ATTN CLAIMS [address] [place] [address] [phone] [id number] TERRI LOPEZ Self - patient is the insured Medical (General) History Medical History History ICD Code hypertension elevated cholesterol enlarged prostate anxiety Surgical History Surgery Date(Month/Year) bladder surgery vascular surgery
== END 2025-08-12 13:58 | disposition home or self-care (01) ==
LOC: HO.HMCFM 13:03
PROVIDERS: PCP Family Medicine; Visit Provider Family Medicine
DX: R41.3 Other amnesia (principal); B34.9 Viral infection, unspecified; I10 Essential (primary) hypertension; N18.32 Chronic kidney disease, stage 3b